=== PATIENT | female | born 1955 | race Caucasian/White ===

== ENCOUNTER → 2016-11-13 | Outpatient (CLI) | payer BC ==
--- NOTE | 2016-11-14 09:30 | MM ---
Reason for exam: screening (asymptomatic). Last mammogram was performed 1 year and 6 months ago. History: Patient is postmenopausal. Physical Findings: A clinical breast exam by your physician is recommended on an annual basis and results should be correlated with mammographic findings. MG 3D Screening Mammo W/Cad Bilateral CC and MLO view(s) were taken. Prior study comparison: May 31, 2015, bilateral MG 3d screening mammo w/cad. February 15, 2014, mammogram, performed at [facility]. The breast tissue is extremely dense which could obscure a lesion on mammography. No significant changes when compared with prior studies. ASSESSMENT: Benign, BI-RAD 2 RECOMMENDATION: Routine screening mammogram of both breasts in 1 year.
== END | disposition home or self-care (01) ==
LOC: RADMAMWWP 07:48
PROVIDERS: ATTEND Obstetrics & Gynecology
DX: Z12.31 Encounter for screening mammogram for malignant neoplasm of breast (principal)
CPT/HCPCS: 77063; G0202

== ENCOUNTER 2017-09-21 16:54 | Emergency (ER) | payer BC ==
[2017-09-21 17:04] VITALS: RESP 18
[2017-09-21 19:45] LABS: Appearance,Urine Clear (Clear); Bilirubin,Urine Negative (Negative); Blood,Urine Negative (Negative); Color,Urine Colorless; Glucose,Urine (UA) Negative (Negative); Ketones,Urine 1+ (Negative); Leukocyte Esterase,Urine Negative (Negative); Nitrite,Urine Negative (Negative); PH, Urine 6.5 (5.0-8.0); Protein,Urine Negative (Negative); Specific Gravity,Urine 1.002 (1.001-1.035); Urobilinogen,Urine <2.0 mg/dL (<2.0)
[2017-09-21 19:59] LABS: Basophils # (A) 0.1 k/uL (0-0.2); Basophils % (A) 1 %; Eosinophils # (A) 0.3 k/uL (0-0.7); Eosinophils % (A) 3 %; HCT 47.4 % (34.0-46.0); HGB 15.8 gm/dL (11.4-16.0); Lymphocytes # (A) 2.4 k/uL (1.0-4.8); Lymphocytes % (A) 25 %; MCH 29.7 pg (25.0-35.0); MCHC 33.3 g/dL (31.0-37.0); MCV 89.2 fL (80.0-100.0); Monocytes # (A) 0.3 k/uL (0-1.0); Monocytes % (A) 3 %; Neutrophils # (A) 6.7 k/uL (1.3-7.7); Neutrophils % (A) 67 %; Platelet Count 313 k/uL (150-450); RBC 5.31 m/uL (3.80-5.40); WBC 9.9 k/uL (3.8-10.6)
[2017-09-21] MEDS ORDERED: methylPREDNISolone SOD SUCCI 125 MG/2 ML VIAL IV STA (20:02)
[2017-09-21] MEDS ORDERED: IPRATROPIUM-ALBUTEROL 3 ML NEB INHALATION STA (20:02)
--- NOTE | 2017-09-21 20:09 | ED ---
General Adult HPI - General Chief complaint: Arrhythmia/Palpitations Stated complaint: Heart Racing, lightheaded Time Seen by Provider: 09/21/17 19:29 Source: patient Mode of arrival: wheelchair Limitations: no limitations - History of Present Illness Initial comments: 61-year-old female patient presents to the emergency department today for complaints of palpitations and shortness of breath. Patient states that for the last 3 days she has been having issues with shortness of breath. She states that on Thursday she had episode of palpitations that make her slightly lightheaded. She states that it stopped and went away and she felt fine over the weekend other than some intermittent shortness of breath. Patient states that today while at school her heart rate was running in the 120s and she was feeling the palpitations. She states that again she became lightheaded and left school to present to the emergency department today for evaluation. Patient does have a history of palpitations intermittently in the past. States that she does have a history of asthma and has had increasing coughing over the last 3 days as well. She denies any fever, chills, chest pain, nausea, vomiting , or sweats. States that she has not started any new medications, denies increased caffeine intake, denies any drug use. Patient denies any recent rash , abdominal pain, diarrhea, constipation, back pain, numbness, tingling, hematuria, dysuria, urinary urgency, urinary frequency, headache, visual changes , or any other complaints. - Related Data Home Medications Medication Instructions Recorded Confirmed Albuterol Sulfate [Proventil Hfa] 1 - 2 puff INHALATION RT-Q6H PRN 09/08/13 Montelukast [Singulair] 10 mg PO HS 09/08/13 09/21/17 amLODIPine BESYLATE [Norvasc] 10 mg PO DAILY 09/08/13 09/21/17 Fluticasone/Salmeterol [Advair Hfa 2 puff INHALATION RT-BID 03/14/14 09/21/17 230-21 Mcg Inhaler] Bio Identical Hormone Therapy 1 cap INTRADERMA DIRECTED 12/15/16 09/21/17 Umeclidinium Bowler [Incruse 1 puff INHALATION RT-DAILY 06/25/17 09/21/17 Ellipta] guaiFENesin [Mucinex] 1,200 mg PO Q12HR 06/25/17 09/21/17 Albuterol Nebulized [Ventolin 2.5 mg INHALATION RT-Q6H PRN 09/21/17 09/21/17 Nebulized] Calcium/Magnesium/Vitamin K 1 tab PO DAILY 09/21/17 09/21/17 Cyanocobalamin [Vitamin B-12] 500 mcg PO DAILY 09/21/17 09/21/17 L.acidoph,Paracasei, B.lactis 1 cap PO DAILY 09/21/17 09/21/17 [Probiotic] Loratadine [Claritin] 10 mg PO DAILY 09/21/17 09/21/17 Progesterone, Micronized 100 mg PO HS 09/21/17 09/21/17 [Progesterone] Previous Rx's Medication Instructions Recorded predniSONE 50 mg PO DAILY #5 tablet 09/21/17 Allergies Allergy/AdvReac Type Severity Reaction Status Date / Time Sulfa (Sulfonamide Allergy Rash/Hives Verified 09/21/17 19:53 Antibiotics) sulfamethoxazole Allergy Rash/Hives Verified 09/21/17 19:53 [From Bactrim] trimethoprim [From Bactrim] Allergy Rash/Hives Verified 09/21/17 19:53 Review of Systems ROS Statement: Those systems with pertinent positive or pertinent negative responses have been documented in the HPI. ROS Other: All systems not noted in ROS Statement are negative. Past Medical History Past Medical History: Asthma, Hypertension, Pneumonia Additional Past Medical History / Comment(s): Hx. palpitations History of Any Multi-Drug Resistant Organisms: None Reported Past Surgical History: Adenoidectomy, Hysterectomy, Tonsillectomy Additional Past Surgical History / Comment(s): Hx. Bronchoscopy Hx. rhinoplasty /deviated septumHx. rt knee arthroscopy total right knee replacement march left knee replacement - open Past Anesthesia/Blood Transfusion Reactions: No Reported Reaction Past Psychological History: Anxiety, Depression Smoking Status: Never smoker Past Alcohol Use History: Occasional Past Drug Use History: None Reported General Exam Limitations: no limitations General appearance: alert, in no apparent distress, other (This is a well- developed, well-nourished adult female patient in no acute distress. Vital signs upon presentation are temperature 97.5F, pulse 91, respirations 18, blood pressure 137/82, pulse ox 96% on room air.) Eye exam: Present: normal appearance, PERRL, EOMI. Absent: scleral icterus, conjunctival injection, periorbital swelling ENT exam: Present: normal exam, normal oropharynx, mucous membranes moist Respiratory exam: Present: wheezes (Course expiratory wheezing to all posterior lung maria.), other (Good air movement). Absent: normal lung sounds bilaterally, respiratory distress, rales, rhonchi, stridor Cardiovascular Exam: Present: regular rate, normal rhythm, normal heart sounds. Absent: systolic murmur, diastolic murmur, rubs, gallop, clicks GI/Abdominal exam: Present: soft, normal bowel sounds. Absent: distended, tenderness, guarding, rebound, rigid Neurological exam: Present: alert, oriented X3, CN II-XII intact Psychiatric exam: Present: normal affect, normal mood Skin exam: Present: warm, dry, intact, normal color. Absent: rash Course Vital Signs 09/21/17 09/21/17 09/21/17 17:01 19:33 20:37 Temperature 97.5 F L Pulse Rate 91 84 67 Respiratory 18 18 Rate Blood Pressure 137/82 137/80 O2 Sat by Pulse 96 97 Oximetry 09/21/17 20:49 Temperature Pulse Rate 72 Respiratory Rate Blood Pressure O2 Sat by Pulse Oximetry Medical Decision Making - Medical Decision Making 61-year-old female patient presented to the emergency department today for evaluation after having a couple episodes of palpitations while at home. Patient is also complaining of some intermittent shortness of breath. Physical examination did reveal diffuse expiratory wheezing throughout the posterior lung maria. Heart rate was regular in the 80s to 90s. Labs reviewed and are unremarkable. EKG showed normal sinus rhythm. Chest x-ray showed no acute cardiopulmonary process. Patient does have a history of asthma. States that she hasn't been doing her breathing treatments. We did discuss follow-up with her research coordinator for possible Holter monitor. Discussed anxiety as a possible cause. She is given a prescription for prednisone for acute asthma exacerbation. Return parameters discussed in detail. She verbalizes understanding and agrees with this plan. - Lab Data Result diagrams: 09/21/17 19:30 09/21/17 19:30 Lab Results 09/21/17 09/21/17 09/21/17 Range/Units 19:30 19:30 19:30 WBC 9.9 (3.8-10.6) k/uL RBC 5.31 (3.80-5.40) m/uL Hgb 15.8 (11.4-16.0) gm/dL Hct 47.4 H (34.0-46.0) % MCV 89.2 (80.0-100.0) fL MCH 29.7 (25.0-35.0) pg MCHC 33.3 (31.0-37.0) g/dL RDW 14.0 (11.5-15.5) % Plt Count 313 (150-450) k/uL Neutrophils % 67 % Lymphocytes % 25 % Monocytes % 3 % Eosinophils % 3 % Basophils % 1 % Neutrophils # 6.7 (1.3-7.7) k/uL Lymphocytes # 2.4 (1.0-4.8) k/uL Monocytes # 0.3 (0-1.0) k/uL Eosinophils # 0.3 (0-0.7) k/uL Basophils # 0.1 (0-0.2) k/uL Sodium 144 (137-145) mmol/L Potassium 3.7 (3.5-5.1) mmol/L Chloride 106 (98-107) mmol/L Carbon Dioxide 21 L (22-30) mmol/L Anion Gap 17 mmol/L BUN 12 (7-17) mg/dL Creatinine 0.60 (0.52-1.04) mg/dL Est GFR (CKD-EPI)AfAm >90 (>60 ml/min/1.73 sqM) Est GFR (CKD-EPI)NonAf >90 (>60 ml/min/1.73 sqM) Glucose 128 H (74-99) mg/dL Calcium 9.6 (8.4-10.2) mg/dL Magnesium 2.1 (1.6-2.3) mg/dL Total Bilirubin 0.4 (0.2-1.3) mg/dL AST 28 (14-36) U/L ALT 29 (9-52) U/L Alkaline Phosphatase 69 (38-126) U/L Total Creatine Kinase 98 (30-135) U/L CK-MB (CK-2) 1.2 (0.0-2.4) ng/mL CK-MB (CK-2) Rel Index 1.2 Troponin I <0.012 (0.000-0.034) ng/mL Total Protein 6.9 (6.3-8.2) g/dL Albumin 4.4 (3.5-5.0) g/dL TSH 1.810 (0.465-4.680) mIU/L Urine Color Urine Appearance (Clear) Urine pH (5.0-8.0) Ur Specific [place] (1.001-1.035) Urine Protein (Negative) Urine Glucose (UA) (Negative) Urine Ketones (Negative) Urine Blood (Negative) Urine Nitrite (Negative) Urine Bilirubin (Negative) Urine Urobilinogen (<2.0) mg/dL Ur Leukocyte Esterase (Negative) 09/21/17 Range/Units 19:40 WBC (3.8-10.6) k/uL RBC (3.80-5.40) m/uL Hgb (11.4-16.0) gm/dL Hct (34.0-46.0) % MCV (80.0-100.0) fL MCH (25.0-35.0) pg MCHC (31.0-37.0) g/dL RDW (11.5-15.5) % Plt Count (150-450) k/uL Neutrophils % % Lymphocytes % % Monocytes % % Eosinophils % % Basophils % % Neutrophils # (1.3-7.7) k/uL Lymphocytes # (1.0-4.8) k/uL Monocytes # (0-1.0) k/uL Eosinophils # (0-0.7) k/uL Basophils # (0-0.2) k/uL Sodium (137-145) mmol/L Potassium (3.5-5.1) mmol/L Chloride (98-107) mmol/L Carbon Dioxide (22-30) mmol/L Anion Gap mmol/L BUN (7-17) mg/dL Creatinine (0.52-1.04) mg/dL Est GFR (CKD-EPI)AfAm (>60 ml/min/1.73 sqM) Est GFR (CKD-EPI)NonAf (>60 ml/min/1.73 sqM) Glucose (74-99) mg/dL Calcium (8.4-10.2) mg/dL Magnesium (1.6-2.3) mg/dL Total Bilirubin (0.2-1.3) mg/dL AST (14-36) U/L ALT (9-52) U/L Alkaline Phosphatase (38-126) U/L Total Creatine Kinase (30-135) U/L CK-MB (CK-2) (0.0-2.4) ng/mL CK-MB (CK-2) Rel Index Troponin I (0.000-0.034) ng/mL Total Protein (6.3-8.2) g/dL Albumin (3.5-5.0) g/dL TSH (0.465-4.680) mIU/L Urine Color Colorless Urine Appearance Clear (Clear) Urine pH 6.5 (5.0-8.0) Ur Specific [place] 1.002 (1.001-1.035) Urine Protein Negative (Negative) Urine Glucose (UA) Negative (Negative) Urine Ketones 1+ H (Negative) Urine Blood Negative (Negative) Urine Nitrite Negative (Negative) Urine Bilirubin Negative (Negative) Urine Urobilinogen <2.0 (<2.0) mg/dL Ur Leukocyte Esterase Negative (Negative) - EKG Data -: EKG Interpreted by Nh EKG Comments: EKG obtained at 1719 shows normal sinus rhythm with a left bundle branch block. Ventricular rate is 86, WI interval 130, QRS duration 132, QT 398, QTC 476. Patient states she does have a history of left bundle branch block she sees Dr. Farias for this. - Radiology Data Radiology results: report reviewed, image reviewed Two-view x-ray of the chest shows heart mediastinum are normal. Lungs are clear. Diaphragm is normal. There are chest leads. Impression by Dr. Danielle shows no acute cardiopulmonary disease. No change compared to old exam. Mild lower pectus excavatum chest deformity noted. Disposition Clinical Impression: Palpitations, Asthma exacerbation Disposition: HOME SELF-CARE Condition: Good Instructions: Palpitations (ED), Asthma (ED) Additional Instructions: Complete prescription of steroids in full. Follow up with her primary care physician as well as your research coordinator for recheck in 1-2 days. Return here immediately for any new, worsening, or concerning symptoms. Prescriptions: predniSONE 50 mg PO DAILY #5 tablet Is patient prescribed a controlled substance at d/c from ED?: No Referrals: Raquel Maloney MD [Primary Care Provider] - 1-2 days Randy Farias MD [STAFF PHYSICIAN] - 1-2 days Time of Disposition: 21:27
[2017-09-21 20:12] LABS: ALT 29 U/L (9-52); AST 28 U/L (14-36); Albumin 4.4 g/dL (3.5-5.0); Alkaline Phosphatase 69 U/L (38-126); Anion Gap 17 mmol/L; Blood Urea Nitrogen 12 mg/dL (7-17); Calcium 9.6 mg/dL (8.4-10.2); Carbon Dioxide 21 mmol/L (22-30); Chloride 106 mmol/L (98-107); Glucose 128 mg/dL (74-99); Magnesium 2.1 mg/dL (1.6-2.3); Potassium 3.7 mmol/L (3.5-5.1); Sodium 144 mmol/L (137-145); Total Bilirubin 0.4 mg/dL (0.2-1.3); Total Protein 6.9 g/dL (6.3-8.2)
[2017-09-21 20:20] LABS: Creatine Kinase 98 U/L (30-135)
--- NOTE | 2017-09-21 20:21 | XR ---
EXAMINATION TYPE: XR chest 2V DATE OF EXAM: 09/21/2017 COMPARISON: 06/17/2017 HISTORY: Palpitation TECHNIQUE: Frontal and lateral views of the chest are obtained. FINDINGS: Heart and mediastinum are normal. Lungs are clear. Diaphragm is normal. There are chest le ads. IMPRESSION: No active cardiopulmonary disease. No change compared to old exam. Mild lower pectus exc avatum chest deformity noted
[2017-09-21 20:33] LABS: Creatine Kinase MB 1.2 ng/mL (0.0-2.4); Troponin I <0.012 ng/mL (0.000-0.034)
[2017-09-21 21:47] VITALS: BP 140/67; PULSE 70; TEMP 98.6
== END 2017-09-21 21:40 | disposition home or self-care (01) ==
LOC: EC 16:54
DX: J45.901 Unspecified asthma with (acute) exacerbation (principal); R00.2 Palpitations; I10 Essential (primary) hypertension; Z96.653 Presence of artificial knee joint, bilateral; Z79.899 Other long term (current) drug therapy; Z79.51 Long term (current) use of inhaled steroids; Z79.890 Hormone replacement therapy; Z88.2 Allergy status to sulfonamides
CPT/HCPCS: 36415; 94640; 93005; 80053; 84443; 82550; 82553; 83735; 84484; 85025; 81003; 71046; 99285; 96374; J2930

== ENCOUNTER → 2017-10-21 | Outpatient (CLI) | payer BC ==
[2017-10-21 17:27] LABS: Basophils % (A) 0 %; Eosinophils # (A) 0.2 k/uL (0-0.7); Eosinophils % (A) 2 %; HCT 40.8 % (34.0-46.0); HGB 13.6 gm/dL (11.4-16.0); Lymphocytes # (A) 1.9 k/uL (1.0-4.8); Lymphocytes % (A) 18 %; MCH 30.6 pg (25.0-35.0); MCHC 33.3 g/dL (31.0-37.0); MCV 92.1 fL (80.0-100.0); Mean Platelet Volume 6.6; Monocytes # (A) 0.4 k/uL (0-1.0); Monocytes % (A) 4 %; Neutrophils # (A) 7.6 k/uL (1.3-7.7); Neutrophils % (A) 75 %; Platelet Count 383 k/uL (150-450); RBC 4.43 m/uL (3.80-5.40); WBC 10.2 k/uL (3.8-10.6)
[2017-10-21 17:59] LABS: Total Eosinophil Count 183 #EOS/uL (150-300)
[2017-10-22 02:08] LABS: Clam IgE <0.10 kU/L; Codfish IgE <0.10 kU/L; Egg White IgE <0.10 kU/L; Peanut IgE <0.10 kU/L; Scallop IgE <0.10 kU/L; Shrimp IgE <0.10 kU/L; Soybean IgE <0.10 kU/L; Walnut IgE (Food) <0.10 kU/L
[2017-10-22 05:47] LABS: Alternaria alternata IgE 0.46 kU/L; Birch IgE <0.10 kU/L; Cat Epith & Dander IgE 0.89 kU/L; Cockroach IgE 0.23 kU/L; Dog Dander IgE 0.13 kU/L; Elm IgE <0.10 kU/L; Oak IgE <0.10 kU/L; Ragweed,Common IgE <0.10 kU/L; Red Top (Bentgrass) IgE <0.10 kU/L
== END | disposition home or self-care (01) ==
LOC: LABWHC1 16:48
PROVIDERS: ATTEND Internal Medicine
DX: J45.50 Severe persistent asthma, uncomplicated (principal); J47.9 Bronchiectasis, uncomplicated
CPT/HCPCS: 36415; 82785; 85008; 85025; 86003; 87070; 87077; 87186; 87205

== ENCOUNTER → 2017-10-28 | Outpatient (CLI) | payer BC ==
--- NOTE | 2017-10-28 12:18 | CT ---
EXAMINATION TYPE: CT chest w con DATE OF EXAM: 10/28/2017 COMPARISON: December 04, 2011 HISTORY: Bronchiectasis CT DLP: 71 mGycm Automated exposure control for dose reduction was used. CONTRAST: CT scan of the chest is performed with IV Contrast, patient injected with 100 mL of Isovue 300. FINDINGS: LUNGS: Groundglass nodule in left upper lobe image 13 measures 7.4 mm. No additional nodular densitie s seen. Linear atelectasis or parenchymal scar right lung base. Mild reticulonodular prominence right upper lobe. No evidence for bronchiectasis. No airspace consolidation. Stranding right middle lobe m edial segment. No pleural effusion or pneumothorax. MEDIASTINUM: There are no greater than 1 cm hilar or mediastinal lymph nodes. No pericardial effusi on is seen. Thoracic aorta is of normal caliber. The heart is mildly enlarged. UPPER ABDOMEN: Exophytic cyst upper pole left kidney measuring 5.2 cm. OTHER: No additional significant abnormality is seen. IMPRESSION: 1. Nonspecific groundglass nodule left upper lobe. Short-term follow-up advised with repeat study in 3 months. 2. No evidence for bronchiectasis.
== END | disposition home or self-care (01) ==
LOC: RADCTMAIN 08:00
PROVIDERS: ATTEND Internal Medicine
DX: R91.1 Solitary pulmonary nodule (principal)
CPT/HCPCS: 71260; Q9967

== ENCOUNTER → 2017-11-30 | Outpatient (CLI) | payer BC ==
--- NOTE | 2017-12-02 11:39 | MM ---
Reason for exam: screening (asymptomatic). Last mammogram was performed 1 year and 1 month ago. History: Patient is postmenopausal. Physical Findings: A clinical breast exam by your physician is recommended on an annual basis and results should be correlated with mammographic findings. MG 3D Screening Mammo W/Cad Bilateral CC and MLO view(s) were taken. Prior study comparison: November 13, 2016, bilateral MG 3d screening mammo w/cad. May 31, 2015, bilateral MG 3d screening mammo w/cad. The breast tissue is extremely dense which could obscure a lesion on mammography. No significant changes when compared with prior studies. ASSESSMENT: Benign, BI-RAD 2 RECOMMENDATION: Routine screening mammogram of both breasts in 1 year.
== END | disposition home or self-care (01) ==
LOC: RADMAMWWP 16:44
PROVIDERS: ATTEND Obstetrics & Gynecology
DX: Z12.31 Encounter for screening mammogram for malignant neoplasm of breast (principal)
CPT/HCPCS: 77063; 77067

== ENCOUNTER → 2018-01-13 | Outpatient (CLI) | payer BC | END | disposition home or self-care (01) | LOC: LABWHC1 07:20 | PROVIDERS: ATTEND Obstetrics & Gynecology | DX: Z51.81 Encounter for therapeutic drug level monitoring (principal); Z79.890 Hormone replacement therapy; Z78.0 Asymptomatic menopausal state; Z86.39 Personal history of other endocrine, nutritional and metabolic disease | CPT/HCPCS: 36415; 82607; 82670; 83001; 84403 ==

== ENCOUNTER → 2018-03-10 | Outpatient (CLI) | payer BC | END | disposition home or self-care (01) | LOC: LABWHC1 10:13 | PROVIDERS: ATTEND Internal Medicine | DX: E55.9 Vitamin D deficiency, unspecified (principal); J45.51 Severe persistent asthma with (acute) exacerbation; J18.1 Lobar pneumonia, unspecified organism; J47.9 Bronchiectasis, uncomplicated | CPT/HCPCS: 36415; 82306; 87070; 87077; 87186; 87205 ==

== ENCOUNTER → 2018-04-02 | Outpatient (CLI) | payer BC ==
[2018-04-02 18:10] LABS: Basophils % (A) 1 %; Eosinophils # (A) 0.1 k/uL (0-0.7); Eosinophils % (A) 1 %; HCT 42.1 % (34.0-46.0); HGB 13.8 gm/dL (11.4-16.0); Lymphocytes # (A) 1.9 k/uL (1.0-4.8); Lymphocytes % (A) 23 %; MCH 30.5 pg (25.0-35.0); MCHC 32.8 g/dL (31.0-37.0); MCV 92.9 fL (80.0-100.0); Mean Platelet Volume 6.5; Monocytes # (A) 0.4 k/uL (0-1.0); Monocytes % (A) 5 %; Neutrophils # (A) 5.5 k/uL (1.3-7.7); Neutrophils % (A) 69 %; Platelet Count 248 k/uL (150-450); RBC 4.53 m/uL (3.80-5.40); RDW 14.2 % (11.5-15.5)
[2018-04-02 18:45] LABS: Total Eosinophil Count 64 #EOS/uL (150-300)
[2018-04-03 03:32] LABS: Immunoglobulin E 53.1 IU/mL (0.00-114.00)
[2018-04-03 04:40] LABS: HIV 1 AB Non-Reactive (Non-Reactive); HIV AB P24 Non-Reactive (Non-Reactive); HIV P24 AG Non-Reactive (Non-Reactive)
[2018-04-03 11:37] LABS: T4/T8 Ratio (CD4:CD8) 6.4 (1.0-3.7)
[2018-04-03 12:14] LABS: Immunoglobulin M 65.7 mg/dL (40.0-280.0)
== END ==
LOC: LABWHC1 17:13
PROVIDERS: ATTEND Internal Medicine Infectious Disease
DX: J15.1 Pneumonia due to Pseudomonas (principal); J47.9 Bronchiectasis, uncomplicated
CPT/HCPCS: 36415; 82784; 82785; 85008; 85025; 86360; 87390

== ENCOUNTER 2018-06-16 07:01 | Day surgery (SDC) | payer BC ==
[2018-06-14 11:51] VITALS: BMI 26.4
[~2018-06-16 07:01] MED LIST: HEPARIN SODIUM,PORCINE 5,000 UNIT/ML 1 ML VIAL SQ ONE; ceFAZolin IN SWFI 2 GM/20 ML SYRINGE IVP ONE
--- NOTE | 2018-06-16 07:26 | P.GSHP ---
History of Present Illness H&P Date: 06/16/18 Chief Complaint: Chronic cholecystitis Patient on to our service from previous outpatient evaluation. Patient with intermittent right upper quadrant pain. Ultrasound findings of single large gallstone measuring 2.9 cm. Pain usually aggravated by eating. No change in the color of her skin urine or stool. Previous liver enzymes normal. Past Medical History Past Medical History: Asthma, Hypertension, Osteoarthritis (OA), Pneumonia, Skin Disorder, Sleep Apnea/CPAP/BIPAP Additional Past Medical History / Comment(s): palpitations, hx varicose veins, "mild" sleep apnea, gallstones, hx ezeema, LBBB, "pressure in eyes" History of Any Multi-Drug Resistant Organisms: None Reported Past Surgical History: Adenoidectomy, Hysterectomy, Joint Replacement, Orthopedic Surgery, Tonsillectomy Additional Past Surgical History / Comment(s): Bronchoscopy, rhinoplasty/ deviated septum, rt knee arthroscopy, rajinder knee replaements, vein stripping, wrist surgery, A&P repair Past Anesthesia/Blood Transfusion Reactions: Motion Sickness, Postoperative Nausea & Vomiting (PONV) Smoking Status: Never smoker - Past Family History Father Family Medical History: Deep Vein Thrombosis (DVT) Medications and Allergies Home Medications Medication Instructions Recorded Confirmed Type Albuterol Sulfate [Proventil Hfa] 1 - 2 puff INHALATION Q6HR PRN 09/08/13 History Montelukast [Singulair] 10 mg PO HS 09/08/13 06/14/18 History amLODIPine BESYLATE [Norvasc] 10 mg PO DAILY 09/08/13 06/14/18 History Fluticasone/Salmeterol [Advair Hfa 2 puff INHALATION BID 03/14/14 06/14/18 History 230-21 Mcg Inhaler] guaiFENesin [Mucinex] 1,200 mg PO Q12HR PRN 06/25/17 06/14/18 History Albuterol Nebulized [Ventolin 2.5 mg INHALATION Q6HR PRN 09/21/17 06/14/18 History Nebulized] L.acidoph,Paracasei, B.lactis 1 cap PO DAILY 09/21/17 06/14/18 History [Probiotic] Progesterone, Micronized 100 mg PO HS 09/21/17 06/14/18 History [Progesterone] Losartan [Cozaar] 25 mg PO DAILY 06/14/18 06/14/18 History Theophylline 12 Hour [Migue-Dur] 300 mg PO BID 06/14/18 06/14/18 History Allergies Allergy/AdvReac Type Severity Reaction Status Date / Time Sulfa (Sulfonamide Allergy Rash/Hives Verified 06/16/18 07:16 Antibiotics) sulfamethoxazole Allergy Rash/Hives Verified 06/16/18 07:16 [From Bactrim] trimethoprim [From Bactrim] Allergy Rash/Hives/ Verified 06/16/18 07:16 fever/aches Surgical - Exam Vital Signs Temp Pulse Resp BP Pulse Ox 97.6 F 68 16 151/85 97 06/16/18 07:17 06/16/18 07:17 06/16/18 07:17 06/16/18 07:17 06/16/18 07:17 Physical exam: General: Well-developed, well-nourished HEENT: Normocephalic, sclerae nonicteric Abdomen: Nontender, nondistended Extremities: No edema Neuro: Alert and oriented Assessment and Plan (1) Chronic cholecystitis Narrative/Plan: Will proceed with laparoscopic cholecystectomy at this time. Risks of bleeding, infection, bile leak, bile duct injury, retained common bile duct stone, trocar injury, conversion to an open procedure, hernia, anesthesia related complications were reviewed. The patient understands and wishes to proceed. Current Visit: Yes Status: Acute Code(s): K81.1 - CHRONIC CHOLECYSTITIS SNOMED Code(s): 30901705
[2018-06-16] MEDS ORDERED: LACTATED RINGERS 1,000 ML IV ONE (07:30)
[2018-06-16] MEDS ORDERED: LIDOCAINE 1% 20 ML VIAL (10MG/ML) FOR IV START INTRADERMA ONE (07:30)
[2018-06-16] MEDS ORDERED: methylPREDNISolone SOD SUCCI 125 MG/2 ML VIAL IV ONE (07:31)
[2018-06-16] MEDS ORDERED: DEXAMETHASONE SOD PHOSPHATE 10 MG/ML 1 ML VIAL IV ONE (07:31)
[2018-06-16] MEDS ORDERED: ONDANSETRON 4 MG/2 ML VIAL IVP ONE ×2 (07:31→09:00)
[2018-06-16] MEDS ORDERED: KETAMINE 10 MG/ML 20 ML VIAL ONE (07:41)
[2018-06-16] MEDS ORDERED: NEOSTIGMINE 1 MG/ML 10 ML VIAL ONE (07:41)
[2018-06-16] MEDS ORDERED: ROCURONIUM BROMIDE 10 MG/ML 10 ML VIAL IV ONE (07:41)
[2018-06-16] MEDS ORDERED: fentaNYL (PF) 50 MCG/ML 2 ML AMP ONE (07:41)
[2018-06-16] MEDS ORDERED: GLYCOPYRROLATE 0.2 MG/ML 2 ML VIAL ONE (07:41)
[2018-06-16] MEDS ORDERED: PROPOFOL 10 MG/ML 20 ML VIAL IV ONE (07:41)
[2018-06-16] MEDS ORDERED: MIDAZOLAM 2 MG/2 ML VIAL ONE (07:41)
[2018-06-16] MEDS ORDERED: BUPIVACAINE (PF) 0.25% 30 ML VIAL SQ ONE ×2 (08:09)
[2018-06-16] MEDS ORDERED: HYDROcodone/APAP 5-325MG 1 EACH TAB PO PRN (08:47)
[2018-06-16] MEDS ORDERED: NALOXONE 0.4 MG/ML 1 ML VIAL IV PRN (08:47)
--- NOTE | 2018-06-16 08:47 | P.OP ---
Date of Procedure: 06/16/18 Procedure(s) Performed: PREOPERATIVE DIAGNOSIS: Chronic cholecystitis POSTOPERATIVE DIAGNOSIS: Same PROCEDURE: Laparoscopic cholecystectomy SURGEON: Jill EBL: Minimal see anesthesia record ANESTHESIA: Gen. COMPLICATIONS: None OPERATIVE PROCEDURE: The patient was brought and placed on the operating room table in the supine position. The patient was placed under general anesthesia at that time. The abdomen was prepped and draped in the usual sterile fashion. A small vertical infraumbilical incision was made. The fascia was grasped with the Luis Manuel forceps. The fascia was retracted anteriorly. The Veress needle was advanced into the peritoneal cavity. The saline drop test was normal. Insufflation took place up to 15 mmHg. A 5 mm optical trocar was advanced and the peritoneal cavity. 2 additional 5 mm trochars were placed in the right upper quadrant under direct visualization. A 12 mm trocar was advanced into the epigastric incision site. The gallbladder was retracted superiorly and laterally. The peritoneum overlying the infundibulum was bluntly dissected. The patient's cystic duct was visualized. The junction between the cystic duct common and hepatic duct was identified. The cystic duct was then divided after placement of 3 12 mm clips on the patient's side and one on the specimen side. The cystic artery was identified and clipped as well. A small vessel was seen along the gallbladder fossa and clipped as well. The gallbladder was then removed from the liver bed using electrocautery. The gallbladder was then removed from the epigastric trocar site with an Endo Catch bag. The gallbladder fossa was irrigated with saline. There was no evidence of any bleeding or biliary drainage seen. The fascia at the 12 millimeter site was closed using a Ismael-Jez 0 Vicryl stitch. The trochars were then removed. The skin at all 4 sites was closed using a 4-0 Monocryl stitch. Skin glue was utilized on the incision sites. At the end of this procedure the sponge and needle counts were correct. DISPOSITION: Stable to the recovery room
[2018-06-16 08:57] VITALS: TEMP 96.8
[2018-06-16] MEDS: HYDROmorphone 1 MG/ML 1 ML SYRINGE IVP ONE ×4 (09:00→09:22)
[2018-06-16] MEDS ORDERED: HYDROcodone/APAP 5-325MG 1 EACH TAB PO ONE (10:11)
[2018-06-16] MEDS ORDERED: IPRATROPIUM-ALBUTEROL 3 ML NEB INHALATION STA (10:27)
[2018-06-16 10:47] VITALS: RESP 18
[2018-06-16 11:28] VITALS: BP 147/76; PULSE 72
== END 2018-06-16 11:29 | disposition home or self-care (01) ==
LOC: OR 07:01
PROVIDERS: ATTEND Surgery
DX: K80.10 Calculus of gallbladder with chronic cholecystitis without obstruction (principal); J45.909 Unspecified asthma, uncomplicated; I10 Essential (primary) hypertension; M19.90 Unspecified osteoarthritis, unspecified site; Z87.01 Personal history of pneumonia (recurrent); G47.30 Sleep apnea, unspecified; Z99.89 Dependence on other enabling machines and devices; I44.7 Left bundle-branch block, unspecified; L30.9 Dermatitis, unspecified; Z79.890 Hormone replacement therapy; Z79.51 Long term (current) use of inhaled steroids; Z79.52 Long term (current) use of systemic steroids; Z79.899 Other long term (current) drug therapy; Z88.2 Allergy status to sulfonamides
CPT/HCPCS: 94640; 88304; 47562; J2250; J1644; J1100; J2710; J2930; J2405; J3010; J1170; J2704; J0690

== ENCOUNTER 2018-10-28 10:02 | Day surgery (SDC) | payer BC ==
[2018-10-27 10:10] VITALS: BMI 26.0
[~2018-10-28 10:02] MED LIST changes: -HEPARIN SODIUM,PORCINE 5,000 UNIT/ML 1 ML VIAL SQ ONE; +LACTATED RINGERS 1,000 ML IV SCH; +LIDOCAINE 1% 20 ML VIAL (10MG/ML) FOR IV START INTRADERMA PRN; -ceFAZolin IN SWFI 2 GM/20 ML SYRINGE IVP ONE
[2018-10-28 10:22] VITALS: TEMP 98.2
[2018-10-28] MEDS ORDERED: PROPOFOL 10 MG/ML 20 ML VIAL IV ONE (11:32)
--- NOTE | 2018-10-28 12:14 | P.PCN ---
Date of Procedure: 10/28/18 Procedure(s) Performed: Procedure: Total colonoscopy. Preoperative diagnosis: Positive cologuard and history of polyps. Postoperative diagnosis: Exam within normal limits. Preparation: HalfLytely prep. Sedation: Was provided by anesthesia. Brief clinical history: The patient is a 63-year-old female who is scheduled for this evaluation for the above reasons. Her prior exam was in May 2015 and that revealed mild diverticulosis but the preparation was less than ideal. The patient complains of constipation but has no other bowel issues, overt bleeding or anemia. Procedure: With the patient on her left lateral decubitus position and after informed consent and adequate sedation, the perianal area was inspected and it did not show any fissures or fistulas. There were no masses felt on digital rectal examination. The Olympus CFH 190L video colonoscope was then inserted in the rectum in the usual fashion and advanced to the cecum. There was occasional diverticular orifices in the sigmoid and around the hepatic flexure but no evidence of acute diverticulitis or strictures. The mucosa appeared healthy. No significant polyps or tumors were seen or any mucosal abnormalities or other obvious pathology. I retroflexed the endoscope in the rectum before the endoscope was withdrawn. The patient tolerated the procedure well. Plan: The patient was reassured. I would recommend repeat exam in 5 years. The patient is interested in having blood serology for celiac disease because of her bowel issues and, apparently, her sister is diagnosed with celiac disease. She will be discussing that with you.
[2018-10-28 12:28] VITALS: BP 137/84; PULSE 66; RESP 16
== END 2018-10-28 12:37 | disposition home or self-care (01) ==
LOC: ORWHC2ENDO 10:02
DX: R19.5 Other fecal abnormalities (principal); K59.00 Constipation, unspecified; K57.30 Diverticulosis of large intestine without perforation or abscess without bleeding; M19.90 Unspecified osteoarthritis, unspecified site; I10 Essential (primary) hypertension; G47.33 Obstructive sleep apnea (adult) (pediatric); J45.909 Unspecified asthma, uncomplicated; I49.9 Cardiac arrhythmia, unspecified; R00.2 Palpitations; Z86.010 Personal history of colon polyps; Z79.51 Long term (current) use of inhaled steroids; Z79.899 Other long term (current) drug therapy; Z90.710 Acquired absence of both cervix and uterus; Z90.49 Acquired absence of other specified parts of digestive tract; Z90.89 Acquired absence of other organs; Z88.2 Allergy status to sulfonamides
CPT/HCPCS: 45378; J2704

== ENCOUNTER → 2019-02-16 | Outpatient (CLI) | payer BC ==
--- NOTE | 2019-02-17 07:06 | US ---
EXAMINATION TYPE: US kidneys/renal and bladder DATE OF EXAM: 02/16/2019 COMPARISON: NONE CLINICAL HISTORY: R10.9 FLANK PAIN. flank pain. EXAM MEASUREMENTS: Right Kidney: 9.9 x 3.0 x 4.0 cm Left Kidney: 10.3 x 4.2 x 4.2 cm Right Kidney: Cystic area lower pole 6.7 x 6.0 x 6.4cm. Left Kidney: Cystic area upper pole 6.2 x 5.3 x 6.3cm. Bladder: wnl Bilateral Jets seen: No There is no evidence for hydronephrosis at this point in time. No nephrolithiasis is seen. No suspi cious masses are identified. The urinary bladder is anechoic. IMPRESSION: Large bilateral renal cysts measuring up to 6.7 cm on the right and 6.2 cm on the left. These are sim ple and appear benign. No hydronephrosis or nephrolithiasis.
== END | disposition home or self-care (01) ==
LOC: RADUSWWP 16:15
PROVIDERS: ATTEND Internal Medicine
DX: N28.1 Cyst of kidney, acquired (principal); Z88.2 Allergy status to sulfonamides
CPT/HCPCS: 76770

== ENCOUNTER → 2019-04-09 | Outpatient (CLI) | payer BC ==
[2019-04-09 12:06] LABS: HCT 38.1 % (34.0-46.0); MCH 31.3 pg (25.0-35.0); MCHC 34.2 g/dL (31.0-37.0); MCV 91.4 fL (80.0-100.0); Platelet Count 316 k/uL (150-450); RBC 4.17 m/uL (3.80-5.40); RDW 13.4 % (11.5-15.5); WBC 6.4 k/uL (3.8-10.6)
[2019-04-09 17:09] LABS: Estradiol 85.1 pg/mL; Follicle Stimulating Hormone 29.6 mIU/mL
== END | disposition home or self-care (01) ==
LOC: LABWHC1 11:21
PROVIDERS: ATTEND Obstetrics & Gynecology
DX: E34.50 Androgen insensitivity syndrome, unspecified (principal); N95.1 Menopausal and female climacteric states; G47.00 Insomnia, unspecified; R53.83 Other fatigue
CPT/HCPCS: 36415; 82306; 82607; 82670; 83001; 84144; 84403; 84443; 84481; 85027

== ENCOUNTER → 2019-06-03 | Outpatient (CLI) | payer BC ==
--- NOTE | 2019-06-06 14:17 | MM ---
Reason for exam: screening (asymptomatic). Last mammogram was performed 1 year and 6 months ago. History: Patient is postmenopausal. Taking progesterone for 2 years. Physical Findings: A clinical breast exam by your physician is recommended on an annual basis and results should be correlated with mammographic findings. MG 3D Screening Mammo W/Cad Bilateral CC and MLO view(s) were taken. Prior study comparison: November 30, 2017, bilateral MG 3d screening mammo w/cad. November 13, 2016, bilateral MG 3d screening mammo w/cad. The breast tissue is heterogeneously dense. This may lower the sensitivity of mammography. There is no discrete abnormality. No significant changes when compared with prior studies. ASSESSMENT: Negative, BI-RAD 1 RECOMMENDATION: Routine screening mammogram of both breasts in 1 year.
== END | disposition home or self-care (01) ==
LOC: RADMAMWWP 16:50
PROVIDERS: ATTEND Obstetrics & Gynecology
DX: Z12.31 Encounter for screening mammogram for malignant neoplasm of breast (principal)
CPT/HCPCS: 77063; 77067

== ENCOUNTER → 2019-07-15 | Outpatient (CLI) | payer BC ==
[2019-07-15 19:51] LABS: Estradiol 106.3 pg/mL; Follicle Stimulating Hormone 18.3 mIU/mL
== END | disposition home or self-care (01) ==
LOC: LABWHC1 13:33
PROVIDERS: ATTEND Obstetrics & Gynecology
DX: R53.83 Other fatigue (principal); G47.00 Insomnia, unspecified; R45.4 Irritability and anger; N95.1 Menopausal and female climacteric states
CPT/HCPCS: 36415; 82670; 83001; 84402; 84403

== ENCOUNTER → 2020-01-12 | Outpatient (CLI) | payer BC ==
[2020-01-12 15:34] LABS: Estradiol 46.7 pg/mL
== END | disposition home or self-care (01) ==
LOC: LABWHC1 09:31
PROVIDERS: ATTEND Obstetrics & Gynecology
DX: E34.50 Androgen insensitivity syndrome, unspecified (principal); F41.8 Other specified anxiety disorders; N95.1 Menopausal and female climacteric states; R53.83 Other fatigue
CPT/HCPCS: 36415; 82670; 83001; 84144; 84402; 84403

== ENCOUNTER → 2020-08-16 | Outpatient (CLI) | payer BC ==
--- NOTE | 2020-08-22 09:34 | MM ---
Reason for exam: screening (asymptomatic). Last mammogram was performed 1 year and 2 months ago. History: Patient is postmenopausal. Taking progesterone for 2 years. Physical Findings: A clinical breast exam by your physician is recommended on an annual basis and results should be correlated with mammographic findings. MG 3D Screening Mammo W/Cad Bilateral CC and MLO view(s) were taken. Prior study comparison: June 03, 2019, bilateral MG 3d screening mammo w/cad. November 30, 2017, bilateral MG 3d screening mammo w/cad. The breast tissue is heterogeneously dense. This may lower the sensitivity of mammography. There are benign appearing vascular calcifications in the right breast. There is no discrete abnormality. ASSESSMENT: Negative, BI-RAD 1 RECOMMENDATION: Routine screening mammogram of both breasts in 1 year.
== END | disposition home or self-care (01) ==
LOC: RADMAMWWP 07:42
PROVIDERS: ATTEND Obstetrics & Gynecology
DX: Z12.31 Encounter for screening mammogram for malignant neoplasm of breast (principal); Z78.0 Asymptomatic menopausal state
CPT/HCPCS: 77063; 77067

== ENCOUNTER 2021-02-18 13:35 | Emergency (ER) | payer BC ==
[2021-02-18 14:07] VITALS: TEMP 98.9
[2021-02-18] MEDS ORDERED: IPRATROPIUM-ALBUTEROL 3 ML NEB INHALATION STA (15:23)
--- NOTE | 2021-02-18 15:28 | ED ---
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 She was treated by her primary care doctor with prednisone taper on January 17. She states that she seen Dr. Knight her polisher and sander and was placed on another prednisone taper for 21 days and Levaquin on January 26. She states that she continues to have a cough. She denies any fevers. 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 Her Covid test is negative today. She states that she has had 3 Covid vaccines. She has a history of bronchiectasis and asthma. She is a nonsmoker. (Aakash Tariq) - Related Data Home Medications Medication Instructions Recorded Confirmed Albuterol Sulfate [Proventil Hfa] 1 - 2 puff INHALATION Q6HR PRN 09/08/13 10/28/18 Montelukast [Singulair] 10 mg PO HS 09/08/13 10/28/18 amLODIPine BESYLATE [Norvasc] 10 mg PO DAILY 09/08/13 10/28/18 Fluticasone/Salmeterol [Advair Hfa 2 puff INHALATION BID 03/14/14 10/28/18 230-21 Mcg Inhaler] Albuterol Nebulized [Ventolin 2.5 mg INHALATION Q6HR PRN 09/21/17 10/28/18 Nebulized] L.acidoph,Paracasei, B.lactis 1 cap PO DAILY 09/21/17 10/28/18 [Probiotic] Progesterone, Micronized 100 mg PO HS 09/21/17 10/28/18 [Progesterone] Theophylline 12 Hour [Migue-Dur] 300 mg PO BID 06/14/18 10/28/18 Allergies Allergy/AdvReac Type Severity Reaction Status Date / Time Sulfa (Sulfonamide Allergy Rash/Hives Verified 02/18/21 14:07 Antibiotics) sulfamethoxazole Allergy Rash/Hives Verified 02/18/21 14:07 [From Bactrim] trimethoprim [From Bactrim] Allergy Rash/Hives/ Verified 02/18/21 14:07 fever/aches Review of Systems ROS Other: All systems not noted in ROS Statement are negative. <Aakash Tariq - Last Filed: 02/18/21 20:13> ROS Other: All systems not noted in ROS Statement are negative. <Danielle Park - Last Filed: 02/21/21 15:00> ROS Statement: Those systems with pertinent positive or pertinent negative responses have been documented in the HPI. Past Medical History Past Medical History: Asthma, Hypertension, Osteoarthritis (OA), Pneumonia, Skin Disorder, Sleep Apnea/CPAP/BIPAP Additional Past Medical History / Comment(s): palpitations, hx varicose veins, "mild" sleep apnea, hx ezcema, LBBB, "pressure in eyes" History of Any Multi-Drug Resistant Organisms: None Reported Past Surgical History: Adenoidectomy, Cholecystectomy, Hysterectomy, Joint Replacement, Orthopedic Surgery, Tonsillectomy Additional Past Surgical History / Comment(s): Bronchoscopy, rhinoplasty/deviated septum, rt knee arthroscopy, rajidner knee replacements, vein stripping, wrist surgery, A&P repair Past Anesthesia/Blood Transfusion Reactions: Motion Sickness, Postoperative Nausea & Vomiting (PONV) Past Psychological History: Anxiety Smoking Status: Never smoker Past Alcohol Use History: Occasional Past Drug Use History: None Reported - Past Family History Father Family Medical History: Deep Vein Thrombosis (DVT) <Aakash Tariq - Last Filed: 02/18/21 20:13> General Exam Limitations: no limitations General appearance: alert, in no apparent distress Head exam: Present: atraumatic, normocephalic, normal inspection ENT exam: Present: normal exam, normal oropharynx, mucous membranes moist Neck exam: Present: normal inspection, full ROM. Absent: tenderness, meningismus, lymphadenopathy Respiratory exam: Present: wheezes. Absent: respiratory distress, chest wall t enderness, accessory muscle use Cardiovascular Exam: Present: regular rate, normal rhythm, normal heart sounds. Absent: systolic murmur, diastolic murmur, rubs, gallop, clicks Extremities exam: Present: full ROM. Absent: pedal edema Back exam: Absent: tenderness, CVA tenderness (R), CVA tenderness (L) Neurological exam: Present: alert, oriented X3 Psychiatric exam: Present: normal affect, normal mood Skin exam: Present: warm, dry, intact, normal color. Absent: rash <Aakash Tariq - Last Filed: 02/18/21 20:13> Course Vital Signs 02/18/21 02/18/21 02/18/21 14:05 15:36 16:05 Temperature 98.9 F Pulse Rate 92 91 90 Respiratory 22 20 Rate Blood Pressure 169/84 137/67 O2 Sat by Pulse 98 95 Oximetry 02/18/21 16:12 Temperature Pulse Rate 92 Respiratory Rate Blood Pressure O2 Sat by Pulse Oximetry Medical Decision Making <Aakash Tariq - Last Filed: 02/18/21 20:13> <Danielle Park - Last Filed: 02/21/21 15:00> - Medical Decision Making Patient presents with cough for 6 weeks. She has history of asthma and bronchiectasis. She is a nonsmoker. X-ray shows no acute pulmonary disease. There is hyperinflation compatible with COPD. Patient has just finished prednisone taper that was prescribed on January 26 By her polisher and sander along with Levaquin for 10 days. She states that she was on prednisone by her primary care doctor on January 17 as well. She had negative Covid test here and has been vaccinated. Patient was given a DuoNeb treatment in the emergency room and reports improved symptoms. Her oxygen saturation is 98% on room air. She is afebrile. This is likely an asthma exacerbation and she'll be directed to follow up with her primary care doctor. Case discussed with Dr. Park. (Aakash Tariq) I was available for consultation in the emergency department. The history and physical exam were done by the midlevel provider. I was consulted for this patients care. I reviewed the case with the midlevel provider and based on their presentation of the patient, I agree with the assessment, medical decision making and plan of care as documented. Chart was dictated using [employer] dictation software. Attempts were made to correct any dictation errors however some typographical errors may persist. (Danielle Park) - Lab Data Lab Results 02/18/21 Range/Units 14:14 Coronavirus (PCR) Not Detected (Not Detectd) Disposition Is patient prescribed a controlled substance at d/c from ED?: No Time of Disposition: 16:32 <Aakahs Tariq - Last Filed: 02/18/21 20:13> <Danielle Park - Last Filed: 02/21/21 15:00> Clinical Impression: Cough Disposition: HOME SELF-CARE Condition: Good Instructions (If sedation given, give patient instructions): Asthma (ED) Additional Instructions: Continue taking your previously prescribed medications. Return to the emergency room with any new or worsening symptoms. Follow up with Dr. Knight this week. Referrals: Víctor Pacheco DO [Primary Care Provider] - 1-2 days Jam Knight MD [STAFF PHYSICIAN] - 1-2 days
[2021-02-18 15:40] VITALS: BP 137/67; RESP 20
--- NOTE | 2021-02-18 15:56 | XR ---
EXAMINATION TYPE: XR chest 2V DATE OF EXAM: 02/18/2021 COMPARISON: 09/21/2017 HISTORY: Shortness of breath TECHNIQUE: Frontal and lateral views of the chest are obtained. FINDINGS: Scattered senescent parenchymal changes noted. Hyperinflation compatible with COPD. No evidence for infiltrate. No evidence for atelectasis. Heart size is stable. Mediastinal structures are stable and grossly unremarkable. No evidence for hilar prominence. Degenerative changes dorsal spine. IMPRESSION: 1. No evidence for acute pulmonary disease.
[2021-02-18 16:13] VITALS: PULSE 92
== END 2021-02-18 17:00 | disposition home or self-care (01) ==
LOC: EC 13:35
DX: R05.9 Cough, unspecified (principal); R06.00 Dyspnea, unspecified; J45.909 Unspecified asthma, uncomplicated; I10 Essential (primary) hypertension; Z88.2 Allergy status to sulfonamides; Z88.1 Allergy status to other antibiotic agents; Z79.51 Long term (current) use of inhaled steroids; Z20.822 Contact with and (suspected) exposure to COVID-19; Z79.899 Other long term (current) drug therapy
CPT/HCPCS: 71046; 87635; 94640; 99285

== ENCOUNTER → 2021-06-11 | Outpatient (CLI) | payer BC | END | disposition home or self-care (01) | LOC: LABWHC1 09:03 | PROVIDERS: ATTEND Internal Medicine | DX: Z51.81 Encounter for therapeutic drug level monitoring (principal); Z79.899 Other long term (current) drug therapy | CPT/HCPCS: 36415; 80198 ==

== ENCOUNTER 2021-07-02 11:52 | Day surgery (SDC) | payer BC ==
[2021-07-01 11:57] VITALS: BMI 33.6
[~2021-07-02 11:52] MED LIST changes: +ALBUTEROL NEB (CONC) 2.5 MG/0.5 ML INHALATION ONE; -LIDOCAINE 1% 20 ML VIAL (10MG/ML) FOR IV START INTRADERMA PRN; +LIDOCAINE 2% (PF) 20 MG/ML 5 ML VIAL INHALATION ONE; +LIDOCAINE VISCOUS 300 MG/15 ML CUP MUCOUS MEM ONE
[2021-07-02 12:45] VITALS: TEMP 98.4
[2021-07-02] MEDS ORDERED: LIDOCAINE 1% (10MG/ML) FOR IV START INTRADERMA ONE (13:03)
[2021-07-02] MEDS ORDERED: methylPREDNISolone SOD SUCCI 125 MG/2 ML VIAL IVP ONE (13:03)
[2021-07-02 13:08] LABS: Glucose,Whole Blood 87 mg/dL (75-99)
[2021-07-02] MEDS ORDERED: ALBUTEROL NEBULIZED 2.5 MG/3 ML INHALATION ONE (13:08)
[2021-07-02] MEDS ORDERED: SUCCINYLCHOLINE CHLORIDE 100 MG/5 ML SYR IV ONE (13:27)
[2021-07-02] MEDS ORDERED: KETAMINE 10 MG/ML 20 ML VIAL ONE (13:27)
[2021-07-02] MEDS ORDERED: GLYCOPYRROLATE 0.2 MG/ML 2 ML VIAL ONE (13:27)
[2021-07-02] MEDS ORDERED: PROPOFOL 10 MG/ML 20 ML VIAL IV ONE (13:27)
[2021-07-02] MEDS ORDERED: MIDAZOLAM 2 MG/2 ML VIAL ONE (13:27)
[2021-07-02] MEDS ORDERED: LIDOCAINE 1% INJ 10MG/ML (20 ML MDV) ONE (13:27)
--- NOTE | 2021-07-02 14:03 | P.PCN ---
Date of Procedure: 07/02/21 Preoperative Diagnosis: 1 multilobar pneumonia 2 severe persistent bronchial asthma 3 shortness of breath, failed outpatient antibiotic and steroid treatment Postoperative Diagnosis: 1 tracheobronchomalacia 2 purulent secretions involving the various segments of the right lower lobe and a left upper lobe 3 diffuse inflammatory changes involving the bronchial and the tracheal mucosa 4 normal upper airway evaluation/examination Procedure(s) Performed: 1 flexible bronchoscopy 2 therapeutic airway suctioning 3 bronchioloalveolar lavage involving the right lower lobe in the left lower lobe Surgeon: Marvin Dolan Estimated Blood Loss (ml): 0 Pathology: other Condition: stable Disposition: same day Operative Findings: This is a 65-year-old female patient with severe persistent bronchial asthma also having difficulties with breathing for the past several months. The patient has increased dyspnea cough chest that is no wheezing and the patient has failed outpatient antibiotic and steroid treatment. Most recently, the patient underwent a CT of the heart/coronaries for a calcium score. The CAT scan also showed a patchy area of consolidation along the. Aspect of the right upper lobe measuring up to 3.5 cm in size with adjacent atelectasis noted in the right middle lobe and several areas of tree and bud nodularity within the right lower lobe and the right middle lobe. Additionally, there were areas of bronchial wall thickening and bronchial filling defects within the visualized portions of the lower lobes bilaterally. Based on that, a bronchoscopy was indicated This procedure was done under conscious sedation. Initially the patient was given a combination of Versed, fentanyl and. A quick upper airway inspection was done were the posterior oropharynx, larynx, epiglottis, vallecula, arytenoids and the vocal cords were done and all of the upper airway structures were within normal limits. Vocal cord function and mobility was normal. Arytenoids were slightly swollen. No polyps or lesions or nodules identified. Copious amount of rest or secretions were noted in the subglottic trachea. Following that, the patient intubated by anesthesia and placed on a mechanical ventilator. The patient was intubated by #8 orotracheal tube. After securing the airway, the flexible was reproduced for a complete airway examination. Distal trachea showed some purulent respiratory secretions and therapeutic it was suctioning was done. Following that, a complete airway inspection was done. Visualized airways included the bilateral mainstem bronchi, right upper lobe bronchus, bronchus intermedius, right middle lobe bronchus and right lower lobe bronchus and the various segments of the right and examination also included the left mainstem bronchus, left upper lobe bronchus, left lower lobe bronchus and the various 10 segments on the left. Of significance was the purulent and thick respiratory secretions and mucus obstructing the various segments of the right lower lobe including the posterior lateral anterior segment and this appears segments in addition to some secretions causing plugging of the right middle lobe bronchus intermedius segment of the right middle lobe. Less amount of secretions were noted in the right upper lobe bronchus. This segments in the right upper lobe were essentially patent and there was some scant secretions noted on a similar characteristics that was suctioned out. Bronchoscope was then moved to the left. Significant amount of purulent respiratory secretions were noted in the left lower lobe and the various segments. Scant secretions in the left upper lobe and lingular segments. After completing a therapeutic it was suctioning, bronchioloalveolar lavage of the right lower lobe and the left lower lobe was done separately and the samples were sent for microbial analysis. At the completion of the procedure, the ET tube was gradually retracted. Suctioning of the trachea was done. The patient was extubated and the flexible bronchoscope was introduced and another airway inspection was done. At that point, it was obvious that the patient had significant degree uptake of bronchomalacia with dynamic collapsibility of the trachea and bilateral mainstem bronchi with exhalation maneuvers and coughing. Nevertheless, the airway was free of any respiratory secretions. Bronchial mucosa was inspected and there was some diffuse mucosal inflammatory changes. Postoperative diagnosis 1 bilateral pneumonia, 2 tracheobronchomalacia, 3 diffuse tracheal bronchitis, 4 severe persistent bronchial asthma
--- NOTE | 2021-07-02 14:50 | XR ---
EXAMINATION TYPE: XR chest 1V DATE OF EXAM: 07/02/2021 COMPARISON: Chest x-ray 06/28/2021 HISTORY: Status post bronchoscopy TECHNIQUE: Single frontal view of the chest is obtained. FINDINGS: There is no evident pneumothorax. Patchy densities present in the right middle lobe. Apica l lucency is consistent with underlying emphysema. No evident pneumothorax or pleural effusion. IMPRESSION: No evident complication status post bronchoscopy.
[2021-07-02 14:59] VITALS: RESP 20
[2021-07-02 15:11] VITALS: BP 152/86; PULSE 80
[2021-07-03 04:50] LABS: Appearance,BF Cloudy
[2021-07-03 09:16] LABS: Appearance,BF Cloudy
== END 2021-07-02 16:09 ==
LOC: ORWHC2ENDO 11:52
PROVIDERS: ATTEND Internal Medicine Critical Care Medicine
DX: J39.8 Other specified diseases of upper respiratory tract (principal); J98.09 Other diseases of bronchus, not elsewhere classified; J98.11 Atelectasis; J18.9 Pneumonia, unspecified organism; J45.50 Severe persistent asthma, uncomplicated; E55.9 Vitamin D deficiency, unspecified; I10 Essential (primary) hypertension; J30.9 Allergic rhinitis, unspecified; J45.998 Other asthma; M19.90 Unspecified osteoarthritis, unspecified site; Z90.49 Acquired absence of other specified parts of digestive tract; Z98.890 Other specified postprocedural states; G47.33 Obstructive sleep apnea (adult) (pediatric); Z90.710 Acquired absence of both cervix and uterus; Z96.653 Presence of artificial knee joint, bilateral; Z83.3 Family history of diabetes mellitus; Z79.51 Long term (current) use of inhaled steroids; Z79.899 Other long term (current) drug therapy; Z88.2 Allergy status to sulfonamides
CPT/HCPCS: 94640; 88108; 88305; 89050; 87252; 87070; 87205; 87116; 87102; 87206; 71045; 31645; 31624; J2250; J2930; J2001 ×2; J0330; J2704; 87077; 87186; 87496; 87498; 87502; 87529; 87634; 87798

== ENCOUNTER 2021-07-05 14:29 | Inpatient (IN) | payer BC ==
[2021-07-05] MEDS ORDERED: LEVOFLOXACIN 750MG-D5W PMX 750 MG in DEXTROSE/WATER 1 150ML.BAG IVPB STA (15:04)
[2021-07-05] MEDS ORDERED: PIPERACILLIN-TAZOBACTAM 3.375 GM in SODIUM CHLORIDE 0.9% 100 ML IVPB STA (15:04)
[2021-07-05 15:29] LABS: Basophils % (A) 0 %; Eosinophils # (A) 0.1 k/uL (0-0.7); Eosinophils % (A) 1 %; HCT 46.4 % (34.0-46.0); HGB 15.1 gm/dL (11.4-16.0); Lymphocytes # (A) 1.5 k/uL (1.0-4.8); Lymphocytes % (A) 11 %; MCH 30.5 pg (25.0-35.0); MCHC 32.6 g/dL (31.0-37.0); MCV 93.8 fL (80.0-100.0); Mean Platelet Volume 7.2; Monocytes # (A) 0.5 k/uL (0-1.0); Monocytes % (A) 3 %; Neutrophils # (A) 12.4 k/uL (1.3-7.7); Neutrophils % (A) 85 %; Platelet Count 328 k/uL (150-450); RBC 4.95 m/uL (3.80-5.40); RDW 14.5 % (11.5-15.5); WBC 14.7 k/uL (3.8-10.6)
[2021-07-05 15:37] LABS: Albumin 4.3 g/dL (3.5-5.0); Calcium 9.2 mg/dL (8.4-10.2); Potassium 4.1 mmol/L (3.5-5.1); Total Bilirubin 0.5 mg/dL (0.2-1.3); Total Protein 7.4 g/dL (6.3-8.2)
[2021-07-05] MEDS: SODIUM CHLORIDE 0.9% 1,000 ML IV SCH (16:25)
[2021-07-05 16:26] LABS: Appearance,Urine Cloudy (Clear); Bilirubin,Urine Negative (Negative); Blood,Urine Negative (Negative); Calcium Oxalate Crystals,Urine Many /hpf; Color,Urine Yellow; Glucose,Urine (UA) Negative (Negative); Ketones,Urine Trace (Negative); Leukocyte Esterase,Urine Small (Negative); Mucus,Urine Rare /hpf; Nitrite,Urine Negative (Negative); Protein,Urine Trace (Negative); RBC,Urine 1 /hpf (0-5); Specific Gravity,Urine 1.026 (1.001-1.035); Squamous Epithelial Cell,Urine 1 /hpf (0-4); Urobilinogen,Urine <2.0 mg/dL (<2.0); WBC,Urine 3 /hpf (0-5)
[2021-07-05] MEDS ORDERED: PNEUMONIA PROTOCOL UTILIZED 1 EACH MISC PO PRN (16:28)
--- NOTE | 2021-07-05 16:32 | ED ---
SOB HPI - General Chief Complaint: Shortness of Breath Stated Complaint: SOB,Cough Source: patient Mode of arrival: ambulatory Limitations: no limitations - History of Present Illness Initial Comments: Evelyn is a 65yo F with PMH of asthma and chronic cough, presents to the emergen cy department today via private vehicle and the advice of her boarding house manager. Patient had bronchoscopy due to chronic cough, bronchoscopy yielded evidence of Pseudomonas pneumonia and she was advised to come to the hospital for IV antibiotics. Patient denies any fevers but reports she's had some chills and clamminess lately. She reports her aggressively worsening cough. Denies chest pain. - Related Data Home Medications Medication Instructions Recorded Confirmed Albuterol Sulfate [Proventil Hfa] 2 puff INHALATION RT-Q6H PRN 09/08/13 07/05/21 Montelukast [Singulair] 10 mg PO HS 09/08/13 07/05/21 Progesterone, Micronized 100 mg PO HS 09/21/17 07/05/21 [Progesterone] Theophylline 12 Hour [Migue-Dur] 300 mg PO BID 06/14/18 07/05/21 ALPRAZolam [Xanax] 0.5 mg PO DAILY PRN 07/01/21 07/05/21 Ipratropium-Albuterol Nebulize 3 ml INHALATION RT-Q6H PRN 07/01/21 07/05/21 [Duoneb 0.5 mg-3 mg/3 ml Soln] Losartan [Cozaar] 25 mg PO HS 07/01/21 07/05/21 Ciprofloxacin HCl [Cipro] 750 mg PO Q12H 07/05/21 07/05/21 Fluticasone/Umeclidin/Vilanter 1 puff INHALATION RT-DAILY 07/05/21 07/05/21 [Trelegy Ellipta 100-62.5-25] amLODIPine [Norvasc] 10 mg PO DAILY 07/05/21 07/05/21 predniSONE See Taper PO DAILY 07/05/21 07/05/21 Allergies Allergy/AdvReac Type Severity Reaction Status Date / Time Sulfa (Sulfonamide Allergy Rash/Hives Verified 07/05/21 15:45 Antibiotics) sulfamethoxazole Allergy Rash/Hives Verified 07/05/21 15:45 [From Bactrim] trimethoprim [From Bactrim] Allergy Rash/Hives/ Verified 07/05/21 15:45 fever/aches Review of Systems ROS Statement: Those systems with pertinent positive or pertinent negative responses have been documented in the HPI. ROS Other: All systems not noted in ROS Statement are negative. Past Medical History Past Medical History: Asthma, Hypertension, Osteoarthritis (OA), Pneumonia, Skin Disorder, Sleep Apnea/CPAP/BIPAP Additional Past Medical History / Comment(s): Palpitations, hx varicose veins, "mild" sleep apnea, hx ezcema, LBBB, "pressure in eyes from steroids". SOB recently., tracheal bronchial malacia. History of Any Multi-Drug Resistant Organisms: None Reported Past Surgical History: Adenoidectomy, Cholecystectomy, Hysterectomy, Joint Re placement, Orthopedic Surgery, Tonsillectomy Additional Past Surgical History / Comment(s): Bronchoscopy, rhinoplasty/deviated septum, right knee arthroscopy, bilateral knee r eplacements, vein stripping, left wrist surgery, A&P repair. Past Anesthesia/Blood Transfusion Reactions: Motion Sickness, Postoperative Nausea & Vomiting (PONV) Past Psychological History: Anxiety, Depression Smoking Status: Never smoker, Second hand smoke exposure Past Alcohol Use History: Occasional - Past Family History Father Family Medical History: Deep Vein Thrombosis (DVT) General Exam - General Exam Comments Initial Comments: Physical Exam GENERAL: Patient is well-developed and well-nourished. Patient is nontoxic and well- hydrated and is in no distress. HENT: Normocephalic, Atraumatic. EYES: PERRL, EOMI PULMONARY: Coarse breath sounds in all lung maria CARDIOVASCULAR: There is a regular rate and rhythm without any murmurs gallops or rubs. ABDOMEN: Soft and nontender with normal bowel sounds. SKIN: Skin is clear with no lesions or rashes and otherwise unremarkable. : Deferred NEUROLOGIC: Patient is alert and oriented x3. Moving all extremities spontaneously MUSCULOSKELETAL: Normal extremities with adequate strength and full range of motion. No lower extremity swelling or edema. No calf tenderness. PSYCHIATRIC: Normal psychiatric evaluation. Limitations: no limitations Course Vital Signs 07/05/21 14:31 Temperature 98 F Pulse Rate 83 Respiratory 22 Rate Blood Pressure 118/75 O2 Sat by Pulse 94 L Oximetry Medical Decision Making - Medical Decision Making Patient care was discussed with boarding house manager prior to the patient's arrival, recommended labs, IV antibiotics and admission. Patient arrives she is in no re spiratory distress, labs were obtained chest x-ray was obtained, patient received Zosyn and clindamycin in the emergency department. Patient will be admitted for Pseudomonas pneumonia with consults to pulmonology and infectious disease. - Lab Data Result diagrams: 07/05/21 15:16 07/05/21 15:16 Lab Results 07/05/21 07/05/21 07/05/21 Range/Units 15:16 15:16 15:16 WBC 14.7 H (3.8-10.6) k/uL RBC 4.95 (3.80-5.40) m/uL Hgb 15.1 (11.4-16.0) gm/dL Hct 46.4 H (34.0-46.0) % MCV 93.8 (80.0-100.0) fL MCH 30.5 (25.0-35.0) pg MCHC 32.6 (31.0-37.0) g/dL RDW 14.5 (11.5-15.5) % Plt Count 328 (150-450) k/uL MPV 7.2 Neutrophils % 85 % Lymphocytes % 11 % Monocytes % 3 % Eosinophils % 1 % Basophils % 0 % Neutrophils # 12.4 H (1.3-7.7) k/uL Lymphocytes # 1.5 (1.0-4.8) k/uL Monocytes # 0.5 (0-1.0) k/uL Eosinophils # 0.1 (0-0.7) k/uL Basophils # 0.0 (0-0.2) k/uL Sodium 140 (137-145) mmol/L Potassium 4.1 (3.5-5.1) mmol/L Chloride 105 (98-107) mmol/L Carbon Dioxide 24 (22-30) mmol/L Anion Gap 11 mmol/L BUN 20 H (7-17) mg/dL Creatinine 0.90 (0.52-1.04) mg/dL Est GFR (CKD-EPI)AfAm 79 (>60 ml/min/1.73 sqM) Est GFR (CKD-EPI)NonAf 69 (>60 ml/min/1.73 sqM) Glucose 107 H (74-99) mg/dL Plasma Lactic Acid Thomas (0.7-2.0) mmol/L Calcium 9.2 (8.4-10.2) mg/dL Total Bilirubin 0.5 (0.2-1.3) mg/dL AST 22 (14-36) U/L ALT 16 (4-34) U/L Alkaline Phosphatase 74 (38-126) U/L Total Protein 7.4 (6.3-8.2) g/dL Albumin 4.3 (3.5-5.0) g/dL Urine Color Yellow Urine Appearance Cloudy H (Clear) Urine pH 6.0 (5.0-8.0) Ur Specific [place] 1.026 (1.001-1.035) Urine Protein Trace H (Negative) Urine Glucose (UA) Negative (Negative) Urine Ketones Trace H (Negative) Urine Blood Negative (Negative) Urine Nitrite Negative (Negative) Urine Bilirubin Negative (Negative) Urine Urobilinogen <2.0 (<2.0) mg/dL Ur Leukocyte Esterase Small H (Negative) Urine RBC 1 (0-5) /hpf Urine WBC 3 (0-5) /hpf Ur Squamous Epith Cells 1 (0-4) /hpf Calcium Oxalate Crystal Many H (None) /hpf Urine Mucus Rare H (None) /hpf 07/05/21 Range/Units 15:16 WBC (3.8-10.6) k/uL RBC (3.80-5.40) m/uL Hgb (11.4-16.0) gm/dL Hct (34.0-46.0) % MCV (80.0-100.0) fL MCH (25.0-35.0) pg MCHC (31.0-37.0) g/dL RDW (11.5-15.5) % Plt Count (150-450) k/uL MPV Neutrophils % % Lymphocytes % % Monocytes % % Eosinophils % % Basophils % % Neutrophils # (1.3-7.7) k/uL Lymphocytes # (1.0-4.8) k/uL Monocytes # (0-1.0) k/uL Eosinophils # (0-0.7) k/uL Basophils # (0-0.2) k/uL Sodium (137-145) mmol/L Potassium (3.5-5.1) mmol/L Chloride (98-107) mmol/L Carbon Dioxide (22-30) mmol/L Anion Gap mmol/L BUN (7-17) mg/dL Creatinine (0.52-1.04) mg/dL Est GFR (CKD-EPI)AfAm (>60 ml/min/1.73 sqM) Est GFR (CKD-EPI)NonAf (>60 ml/min/1.73 sqM) Glucose (74-99) mg/dL Plasma Lactic Acid Thomas 0.9 (0.7-2.0) mmol/L Calcium (8.4-10.2) mg/dL Total Bilirubin (0.2-1.3) mg/dL AST (14-36) U/L ALT (4-34) U/L Alkaline Phosphatase (38-126) U/L Total Protein (6.3-8.2) g/dL Albumin (3.5-5.0) g/dL Urine Color Urine Appearance (Clear) Urine pH (5.0-8.0) Ur Specific [place] (1.001-1.035) Urine Protein (Negative) Urine Glucose (UA) (Negative) Urine Ketones (Negative) Urine Blood (Negative) Urine Nitrite (Negative) Urine Bilirubin (Negative) Urine Urobilinogen (<2.0) mg/dL Ur Leukocyte Esterase (Negative) Urine RBC (0-5) /hpf Urine WBC (0-5) /hpf Ur Squamous Epith Cells (0-4) /hpf Calcium Oxalate Crystal (None) /hpf Urine Mucus (None) /hpf Disposition Clinical Impression: Pseudomonas pneumonia Disposition: ADMITTED IP TO THIS HOSP Condition: Stable Is patient prescribed a controlled substance at d/c from ED?: No Referrals: Víctor Pacheco DO [Primary Care Provider] - 1-2 days
[2021-07-05] MEDS ORDERED: ALBUTEROL NEBULIZED 2.5 MG/3 ML INHALATION PRN (18:21)
[2021-07-05] MEDS: MONTELUKAST 10 MG TAB PO SCH (20:55)
[2021-07-05] MEDS: LOSARTAN 25 MG TAB PO SCH (20:55)
[2021-07-05] MEDS: IPRATROPIUM-ALBUTEROL 3 ML NEB INHALATION PRN (21:13)
[2021-07-06] MEDS: SODIUM CHLORIDE 0.9% 1,000 ML IV SCH ×3 (02:03→16:26)
[2021-07-06] MEDS: IPRATROPIUM-ALBUTEROL 3 ML NEB INHALATION PRN ×2 (02:05→15:38)
[2021-07-06] MEDS: ACETAMINOPHEN TAB 325 MG TAB PO PRN (02:15)
[2021-07-06] MEDS: THEOPHYLLINE 24 HOUR 300 MG CAP.ER.24H PO SCH (07:25)
[2021-07-06] MEDS: amLODIPine 10 MG TAB PO SCH (07:25)
[2021-07-06] MEDS ORDERED: SYMBICORT 80-4.5 MCG INHALER INHALATION SCH (08:00)
[2021-07-06] MEDS: IPRATROPIUM 0.5 MG/2.5 ML NEBU INHALATION SCH ×4 (08:02→19:47)
[2021-07-06 08:41] LABS: Basophils # (A) 0.04 X 10*3/uL (0.00-0.10); Basophils % (A) 0.4 %; Eosinophils # (A) 0.11 X 10*3/uL (0.04-0.35); Eosinophils % (A) 1.1 %; HCT 38.3 % (37.2-46.3); HGB 12.2 g/dL (12.0-15.0); Immature Grans, Automated 0.6 %; Lymphocytes # (A) 2.44 X 10*3/uL (0.90-5.00); Lymphocytes % (A) 23.3 %; MCH 29.8 pg (27.0-32.0); MCHC 31.9 g/dL (32.0-37.0); MCV 93.4 fL (80.0-97.0); Monocytes # (A) 0.72 X 10*3/uL (0.20-1.00); Monocytes % (A) 6.9 %; NRBC Per 100 WBC 0 /100 WBCS (0.0-0.0); Neutrophils # (A) 7.08 X 10*3/uL (1.80-7.70); Neutrophils % (A) 67.7 %; Platelet Count 230 X 10*3/uL (140-440); RDW 14.1 % (11.5-14.5); WBC 10.45 X 10*3/uL (4.50-10.00)
[2021-07-06] MEDS ORDERED: predniSONE 10 MG TAB PO SCH (09:00)
[2021-07-06] MEDS ORDERED: CEFEPIME 2 GM in SODIUM CHLORIDE 0.9% 100 ML IVPB SCH (09:00)
--- NOTE | 2021-07-06 09:10 | XR ---
EXAMINATION TYPE: XR chest 1V portable DATE OF EXAM: 07/06/2021 HISTORY: Shortness of breath. COMPARISON: 07/02/2021 TECHNIQUE: Single view of the chest is submitted. FINDINGS: Demonstrated are scattered senescent parenchymal change. No significant interval change in right middle lobe infiltrate. The heart is stable. Hilar and mediastinal structures are within normal limits. Degenerative changes are seen of the dorsal spine. IMPRESSION: 1. No significant interval change in right middle lobe infiltrate.
[2021-07-06] MEDS: guaiFENesin 600 MG TABLET.ER PO SCH ×2 (12:07→20:29)
[2021-07-06] MEDS: methylPREDNISolone SOD SUCCI 40 MG/ML 1 ML VIAL IV SCH ×3 (12:07→23:24)
--- NOTE | 2021-07-06 12:44 | CT ---
EXAMINATION TYPE: CT chest wo con DATE OF EXAM: 07/06/2021 COMPARISON: None HISTORY: Pneumonia, ? bronchiectasis CT DLP: 358.[address] of the chest was performed with lung and mediastinal window settings submitted. The la ck of contrast limits evaluation of the vascular, mediastinal and parenchymal structures including th e upper abdomen. LUNGS: There is airspace consolidation right middle lobe with additional scattered nodular and ground glass areas of infiltrate within the right upper lobe, the left upper lobe and lower lobes. The findi ngs are consistent with multifocal pneumonia. No pleural effusion or volume loss at this time. Mild l ower lobe bronchiectasis suggested. MEDIASTINUM/YURI: Thoracic aorta is of normal caliber with limited evaluation given lack of contrast . The heart is not enlarged. No evidence for mediastinal mass. There is a reactive right paratrache al adenopathy measuring up to 1.6 cm. Small sliding-type hiatal hernia. UPPER ABDOMEN: Large cystic lesion upper pole left kidney. 2 mm calculus right kidney. The gallbladde r is surgically absent. OTHER: No significant other abnormality. IMPRESSION: 1. Multifocal pneumonia as noted.
--- NOTE | 2021-07-06 14:10 | P.CNPUL ---
History of Present Illness Consult date: 07/06/21 Reason for consult: dyspnea, pneumonia History of present illness: This is a 65-year-old female patient was admitted yesterday for ongoing pneum onia. The patient is seen in our office and the patient has been having difficulties with shortness of breath cough and congestion for the past 2-3 months. The patient has a congested cough, at times she was bringing up yellow sputum. She has also developed some chronic consolidation in lower lobes most on the right. The patient has already received several courses of antibiotics and steroids on outpatient basis without much of an improvement. She continued to be symptomatic. Note that she has completed a course of Zithromax, Augmentin and Levaquin on outpatient basis given to her by her transplanter orchid and by her primary care physician. I performed a bronchoscopy on this patient earlier this week. During the bronchoscopy, I found significant tracheal bronchomalacia and there was significant amount of purulent respiratory secretions bilaterally. Bronchioloalveolar lavage was done and the cultures came back positive for pseudomonas aeruginosa. The patient accordingly was hospitalized as the patient was quite symptomatic, congested, bronchospastic and wheezy and she was not imp roving. She was hospitalized for IV antibiotic treatment. The chest x-ray wasn't. This morning and the patient has ongoing consolidation of the lower lobes. At the same time, the patient has been diagnosed having severe persistent bronchial asthma with use of a King component and the patient is receiving a combination of treatment including Trelegy Ellipta, theophylline, and Singulair and the patient has been maintained on Nucala 100 mg subcutaneous infusions every 4 weeks. Should the patient has seasonal ALLERGIC rhinitis, osteoarthritis, hypertension, vitamin D deficiency as comorbid conditions. She is a lifetime nonsmoker. Review of Systems Constitutional: Reports fatigue, Reports weakness Eyes: denies as per HPI, denies blurred vision, denies bulging eye, denies decreased vision, denies diplopia, denies discharge, denies dry eye, denies irritation, denies itching, denies pain, denies photophobia, denies loss of peripheral vision, denies loss of vision, denies tunnel vision/blind spots Ears: deny: decreased hearing, ear discharge, earache, tinnitus Ears, nose, mouth and throat: Reports as per HPI Breasts: absent: as per HPI, change in shape, gynecomastia, masses, nipple discharge, pain, skin changes, swelling Cardiovascular: Reports decreased exercise tolerance, Reports dyspnea on exertion Respiratory: Reports congestion, Reports cough, Reports dyspnea, Reports respiratory infections, Reports wheezing Gastrointestinal: Reports as per HPI Genitourinary: Reports as per HPI Menstruation: Reports as per HPI Musculoskeletal: Reports as per HPI Musculoskeletal: absent: ankle pain, ankle stiffness, ankle swelling, as per HPI, elbow pain, elbow stiffness, elbow swelling, foot pain, foot stiffness, foot swelling, hand pain, hand stiffness, hand swelling, hip pain, hip stiffness, hip swelling, knee pain, knee stiffness, knee swelling, shoulder pain, shoulder stiffness, shoulder swelling, wrist pain, wrist stiffness, wrist swelling Integumentary: Reports as per HPI Neurological: Reports as per HPI Psychiatric: Reports as per HPI Endocrine: Reports as per HPI Hematologic/Lymphatic: Reports as per HPI Allergic/Immunologic: Reports as per HPI Past Medical History Past Medical History: Asthma, Hypertension, Osteoarthritis (OA), Pneumonia, Skin Disorder, Sleep Apnea/CPAP/BIPAP Additional Past Medical History / Comment(s): Palpitations, hx varicose veins, "mild" sleep apnea, hx ezcema, LBBB, "pressure in eyes from steroids". SOB rece ntly., tracheal bronchial malacia. History of Any Multi-Drug Resistant Organisms: None Reported Past Surgical History: Adenoidectomy, Cholecystectomy, Hysterectomy, Joint Replacement, Orthopedic Surgery, Tonsillectomy Additional Past Surgical History / Comment(s): Bronchoscopy, rhinoplasty/deviated septum, right knee arthroscopy, bilateral knee replacements, vein stripping, left wrist surgery, A&P repair. Past Anesthesia/Blood Transfusion Reactions: Motion Sickness, Postoperative Nausea & Vomiting (PONV) Past Psychological History: Anxiety, Depression Additional Psychological History / Comment(s): Hx of, no treatment now. Smoking Status: Never smoker, Second hand smoke exposure Past Alcohol Use History: Occasional Past Drug Use History: None Reported Additional Drug Use History / Comment(s): Tried CBD oil but not using currently. - Past Family History Father Family Medical History: Deep Vein Thrombosis (DVT) Medications and Allergies Home Medications Medication Instructions Recorded Confirmed Type Albuterol Sulfate [Proventil Hfa] 2 puff INHALATION RT-Q6H PRN 09/08/13 07/05/21 History Montelukast [Singulair] 10 mg PO HS 09/08/13 07/05/21 History Progesterone, Micronized 100 mg PO HS 09/21/17 07/05/21 History [Progesterone] Theophylline 12 Hour [Migue-Dur] 300 mg PO BID 06/14/18 07/05/21 History ALPRAZolam [Xanax] 0.5 mg PO DAILY PRN 07/01/21 07/05/21 History Ipratropium-Albuterol Nebulize 3 ml INHALATION RT-Q6H PRN 07/01/21 07/05/21 History [Duoneb 0.5 mg-3 mg/3 ml Soln] Losartan [Cozaar] 25 mg PO HS 07/01/21 07/05/21 History Ciprofloxacin HCl [Cipro] 750 mg PO Q12H 07/05/21 07/05/21 History Fluticasone/Umeclidin/Vilanter 1 puff INHALATION RT-DAILY 07/05/21 07/05/21 History [Trelegy Ellipta 100-62.5-25] amLODIPine [Norvasc] 10 mg PO DAILY 07/05/21 07/05/21 History predniSONE See Taper PO DAILY 07/05/21 07/05/21 History Allergies Allergy/AdvReac Type Severity Reaction Status Date / Time Sulfa (Sulfonamide Allergy Rash/Hives Verified 07/05/21 15:45 Antibiotics) sulfamethoxazole Allergy Rash/Hives Verified 07/05/21 15:45 [From Bactrim] trimethoprim [From Bactrim] Allergy Rash/Hives/ Verified 07/05/21 15:45 fever/aches Physical Exam Vitals: Vital Signs Temp Pulse Pulse Resp BP BP BP 07/06/21 11:47 72 07/06/21 11:34 72 07/06/21 08:14 76 07/06/21 08:02 76 07/06/21 07:50 99.3 F 74 18 152/84 07/06/21 02:25 98.3 F 74 18 162/80 07/06/21 02:15 66 07/06/21 02:05 72 07/05/21 21:21 75 07/05/21 21:14 69 07/05/21 20:48 97.9 F 71 18 145/81 07/05/21 18:01 98.4 F 70 17 164/84 07/05/21 18:00 98.4 F 07/05/21 17:45 98.7 F 64 18 143/82 07/05/21 16:27 98.2 F 64 20 145/92 07/05/21 14:31 98 F 83 22 118/75 Pulse Ox 07/06/21 11:47 07/06/21 11:34 07/06/21 08:14 07/06/21 08:02 07/06/21 07:50 93 L 07/06/21 02:25 95 07/06/21 02:15 07/06/21 02:05 07/05/21 21:21 07/05/21 21:14 07/05/21 20:48 95 07/05/21 18:01 96 07/05/21 18:00 07/05/21 17:45 94 L 07/05/21 16:27 94 L 07/05/21 14:31 94 L Intake and Output 07/05/21 07/06/21 07/06/21 22:59 06:59 14:59 Other: Voiding Method Toilet # Voids 1 1 Weight 85.275 kg Gen. appearance she is calm and comfortable no acute distress Head exam was generally normal. There was no scleral icterus or corneal arcus. Mucous membranes were moist. Neck was supple and without jugular venous distension, thyromegaly, or carotid bruits. Carotids were easily palpable bilaterally. There was no adenopathy. Lungs sounds are diminished and the patient is diffuse expiratory wheezes throughout the lung his bilaterally and scattered rhonchi heard throughout the lung maria Cardiac exam revealed the PMI to be normally situated and sized. The rhythm was regular and no extrasystoles were noted during several minutes of auscultation. The first and second heart sounds were normal and physiologic splitting of the second heart sound was noted. There were no murmurs, rubs, clicks, or gallops. Abdominal exam revealed normal bowel sounds. The abdomen was soft, non-tender, and without masses, organomegaly, or appreciable enlargement of the abdominal aorta. Examination of the extremities revealed easily palpable radial, femoral and pedal pulses. There was no cyanosis, clubbing or edema. Examination of the skin revealed no evidence of significant rashes, suspicious appearing nevi or other concerning lesions. Neurologically, the patient is awake and alert and the patient does not have any focal neurological deficit. Cranial nerves are essentially intact. Results - Laboratory Findings CBC and BMP: 07/06/21 06:14 07/05/21 15:16 Abnormal lab findings: Abnormal Labs 07/05/21 07/05/21 07/05/21 15:16 15:16 15:16 WBC 14.7 H Hct 46.4 H MCHC Immature Gran # Neutrophils # 12.4 H BUN 20 H Glucose 107 H Urine Appearance Cloudy H Urine Protein Trace H Urine Ketones Trace H Ur Leukocyte Esterase Small H Calcium Oxalate Crystal Many H Urine Mucus Rare H 07/06/21 06:14 WBC 10.45 H Hct MCHC 31.9 L Immature Gran # 0.06 H Neutrophils # BUN Glucose Urine Appearance Urine Protein Urine Ketones Ur Leukocyte Esterase Calcium Oxalate Crystal Urine Mucus - Diagnostic Findings Chest x-ray: image reviewed Assessment and Plan Plan: 1 subacute/chronic pneumonia post bronchoscopy and the cultures came back positive for pseudomonas aeruginosa. Noted the patient has had similar infections years back and the patient was hospitalized that the patient failed outpatient treatment and patient is quite symptomatic bronchospastic wheezing congested and failed outpatient treatment. 2 tracheobronchomalacia, due to direct bronchoscopic inspection/evaluation/observation 3 severe persistent bronchial asthma, with secondary exacerbation 4 ALLERGIC rhinitis 5 hypertension 6 osteoarthritis Plan We'll start the patient IV cefepime 2 g every 12 hours. Continue DuoNeb neb attachments around the clock. We will add IV cinnamon to 40 mg every 8 hours. Mucinex DM 1200 mg by mouth twice a day. Continue pulmonary toileting. May need another bronchoscopy during the course of his hospitalization as the patient has significant amount of trach bronchomalacia and purulent respiratory secretions. I would suggest giving a few days of IV antibiotics with subsequent decision if any. Bronchoscopy will be needed. We will also obtain a follow-up CAT scan of the chest. Obtain a baseline IgG level
[2021-07-06] MEDS: CEFEPIME 2 GM in SODIUM CHLORIDE 0.9% 100 ML IVPB SCH ×2 (16:44→23:24)
--- NOTE | 2021-07-06 17:41 | P.HPIM ---
History of Present Illness H&P Date: 07/05/21 Chief Complaint: Pneumonia 65yo F with PMH of asthma and chronic cough, presents to the emergency department today via private vehicle and the advice of her wet pan operator. Austin guadarrama had bronchoscopy due to chronic cough, bronchoscopy yielded evidence of Pseudomonas pneumonia and she was advised to come to the hospital for IV antibiotics. Patient denies any fevers but reports she's had some chills and clamminess lately. She reports her aggressively worsening cough. Denies chest pain. Note that she has completed a course of Zithromax, Augmentin and Levaquin on outpatient basis given to her by her wet pan operator and by her primary care physician. Pulmonary performed a bronchoscopy on this patient earlier this week. During the bronchoscopy, found significant tracheal bronchomalacia and there was significant amount of purulent respiratory secretions bilaterally. Bronchioloalveolar lavage was done and the cultures came back positive for pseudomonas aeruginosa. The patient accordingly was hospitalized as the patient was quite symptomatic, congested, bronchospastic and wheezy and she was not improving. She was hospitalized for IV antibiotic treatment. Review of Systems REVIEW OF SYSTEMS: CONSTITUTIONAL: No fever, no malaise, no fatigue. HEENT: No recent visual problems or hearing problems. Denied any sore throat. CARDIOVASCULAR: No chest pain, orthopnea, PND, no palpitations, no syncope. PULMONARY: No shortness of breath, no cough, no hemoptysis. GASTROINTESTINAL: No diarrhea, no nausea, no vomiting, no abdominal pain. NEUROLOGICAL: No headaches, no weakness, no numbness. HEMATOLOGICAL: Denies any bleeding or petechiae. GENITOURINARY: Denies any burning micturition, frequency, or urgency. MUSCULOSKELETAL/RHEUMATOLOGICAL: Denies any joint pain, swelling, or any muscle pain. ENDOCRINE: Denies any polyuria or polydipsia. The rest of the 14-point review of systems is negative. Past Medical History Past Medical History: Asthma, Hypertension, Osteoarthritis (OA), Pneumonia, Skin Disorder, Sleep Apnea/CPAP/BIPAP Additional Past Medical History / Comment(s): Palpitations, hx varicose veins, "mild" sleep apnea, hx ezcema, LBBB, "pressure in eyes from steroids". SOB recently., tracheal bronchial malacia. History of Any Multi-Drug Resistant Organisms: None Reported Past Surgical History: Adenoidectomy, Cholecystectomy, Hysterectomy, Joint Replacement, Orthopedic Surgery, Tonsillectomy Additional Past Surgical History / Comment(s): Bronchoscopy, rhinoplasty/deviated septum, right knee arthroscopy, bilateral knee replacements, vein stripping, left wrist surgery, A&P repair. Past Anesthesia/Blood Transfusion Reactions: Motion Sickness, Postoperative Nausea & Vomiting (PONV) Past Psychological History: Anxiety, Depression Additional Psychological History / Comment(s): Hx of, no treatment now. Smoking Status: Never smoker, Second hand smoke exposure Past Alcohol Use History: Occasional Past Drug Use History: None Reported Additional Drug Use History / Comment(s): Tried CBD oil but not using currently. - Past Family History Father Family Medical History: Deep Vein Thrombosis (DVT) Medications and Allergies Home Medications Medication Instructions Recorded Confirmed Type Albuterol Sulfate [Proventil Hfa] 2 puff INHALATION RT-Q6H PRN 09/08/13 07/05/21 History Montelukast [Singulair] 10 mg PO HS 09/08/13 07/05/21 History Progesterone, Micronized 100 mg PO HS 09/21/17 07/05/21 History [Progesterone] Theophylline 12 Hour [Migue-Dur] 300 mg PO BID 06/14/18 07/05/21 History ALPRAZolam [Xanax] 0.5 mg PO DAILY PRN 07/01/21 07/05/21 History Ipratropium-Albuterol Nebulize 3 ml INHALATION RT-Q6H PRN 07/01/21 07/05/21 History [Duoneb 0.5 mg-3 mg/3 ml Soln] Losartan [Cozaar] 25 mg PO HS 07/01/21 07/05/21 History Ciprofloxacin HCl [Cipro] 750 mg PO Q12H 07/05/21 07/05/21 History Fluticasone/Umeclidin/Vilanter 1 puff INHALATION RT-DAILY 07/05/21 07/05/21 History [Trelegy Ellipta 100-62.5-25] amLODIPine [Norvasc] 10 mg PO DAILY 07/05/21 07/05/21 History predniSONE See Taper PO DAILY 07/05/21 07/05/21 History Allergies Allergy/AdvReac Type Severity Reaction Status Date / Time Sulfa (Sulfonamide Allergy Rash/Hives Verified 07/05/21 15:45 Antibiotics) sulfamethoxazole Allergy Rash/Hives Verified 07/05/21 15:45 [From Bactrim] trimethoprim [From Bactrim] Allergy Rash/Hives/ Verified 07/05/21 15:45 fever/aches Physical Exam Vitals: Vital Signs Temp Pulse Pulse Resp BP BP Pulse Ox 07/05/21 18:01 98.4 F 70 17 164/84 96 07/05/21 18:00 98.4 F 07/05/21 17:45 98.7 F 64 18 143/82 94 L 07/05/21 16:27 98.2 F 64 20 145/92 94 L 07/05/21 14:31 98 F 83 22 118/75 94 L Intake and Output 07/05/21 07/05/21 07/05/21 06:59 14:59 22:59 Other: # Voids 1 Weight 85.275 kg 85.275 kg PHYSICAL EXAMINATION: GENERAL: The patient is alert and oriented x3, not in any acute distress. Well developed, well nourished. HEENT: Pupils are round and equally reacting to light. EOMI. No scleral icterus. No conjunctival pallor. Normocephalic, atraumatic. No pharyngeal erythema. No thyromegaly. CARDIOVASCULAR: S1 and S2 present. No murmurs, rubs, or gallops. PULMONARY: Chest is clear to auscultation, no wheezing or crackles. ABDOMEN: Soft, nontender, nondistended, normoactive bowel sounds. No palpable organomegaly. MUSCULOSKELETAL: No joint swelling or deformity. EXTREMITIES: No cyanosis, clubbing, or pedal edema. NEUROLOGICAL: Gross neurological examination did not reveal any focal deficits. SKIN: No rashes. Results CBC & Chem 7: 07/06/21 06:14 07/05/21 15:16 Labs: Abnormal Lab Results - Last 24 Hours (Table) 07/05/21 07/05/21 07/05/21 Range/Units 15:16 15:16 15:16 WBC 14.7 H (3.8-10.6) k/uL Hct 46.4 H (34.0-46.0) % Neutrophils # 12.4 H (1.3-7.7) k/uL BUN 20 H (7-17) mg/dL Glucose 107 H (74-99) mg/dL Urine Appearance Cloudy H (Clear) Urine Protein Trace H (Negative) Urine Ketones Trace H (Negative) Ur Leukocyte Esterase Small H (Negative) Calcium Oxalate Crystal Many H (None) /hpf Urine Mucus Rare H (None) /hpf Thrombosis Risk Factor Assmnt - Choose All That Apply Other Risk Factors: Yes Each Risk Factor Represents 2 Points: Age 61-74 years Thrombosis Risk Factor Assessment Total Risk Factor Score: 2 Thrombosis Risk Factor Assessment Level: Low Risk Assessment and Plan Assessment: 1. Pseudomonas pneumonia - Patient is status post bronchoscopy as indicated above and cultures came back positive for pseudomonas aeruginosa; patient had similar episode in the past at which time she failed outpatient treatment in ED and IV antibiotic therapy - Patient has been placed on cefepime 2 g IV every 12 hours; mucolytic therapy with Mucinex DM 1200 mg twice a day; pulmonary toileting is recommended 2. Tracheobronchomalacia; patient is status post bronchoscopy; pulmonary on board and anticipating another bronchoscopy pending course of hospitalization given significant amount of tracheobronchomalacia and purulent respiratory secretions - CT of the chest is ordered 3. Severe persistent bronchial asthma; acute exacerbation; nebulizer treatments with Atrovent 4 times a day and when necessary; singular 10 mg daily; continue with home dose of theophylline; continue with Solu-Medrol 40 mg IV every 8 hours 4. Hypertension; Norvasc 10 mg daily; losartan 25 mg daily at bedtime 5. Anxiety; Xanax 0.5 mg daily when necessary DVT prophylaxis; SCDs CODE STATUS; full code
[2021-07-06] MEDS: LOSARTAN 25 MG TAB PO SCH (20:22)
[2021-07-06] MEDS: MONTELUKAST 10 MG TAB PO SCH (20:22)
--- NOTE | 2021-07-06 22:29 | P.PN ---
Subjective Progress Note Date: 07/06/21 Principal diagnosis: Pseudomonas pneumonia Tracheobronchomalacia; patient is status post bronchoscopy Severe persistent bronchial asthma; acute exacerbation 65yo F with PMH of asthma and chronic cough, presents to the emergency department today via private vehicle and the advice of her child care assistant. Patient had bronchoscopy due to chronic cough, bronchoscopy yielded evidence of Pseudomonas pneumonia and she was advised to come to the hospital for IV antibiotics. Patient denies any fevers but reports she's had some chills and clamminess lately. She reports her aggressively worsening cough. Denies chest pain. Note that she has completed a course of Zithromax, Augmentin and Levaquin on outpatient basis given to her by her child care assistant and by her primary care physician. Pulmonary performed a bronchoscopy on this patient earlier this week. During the bronchoscopy, found significant tracheal bronchomalacia and there was significant amount of purulent respiratory secretions bilaterally. Bronchioloalveolar lavage was done and the cultures came back positive for pseudomonas aeruginosa. The patient accordingly was hospitalized as the patient was quite symptomatic, congested, bronchospastic and wheezy and she was not improving. She was hospitalized for IV antibiotic treatment. Objective - Vital Signs Vital signs: Vital Signs Temp 99.3 F 07/06/21 07:50 Pulse 72 07/06/21 11:47 Resp 18 07/06/21 07:50 BP 152/84 07/06/21 07:50 Pulse Ox 93 L 07/06/21 07:50 Intake & Output 07/05/21 07/06/21 07/06/21 18:59 06:59 18:59 Weight 85.275 kg Other: Voiding Method Toilet # Voids 1 1 - Exam GENERAL: The patient is alert and oriented x3, not in any acute distress. Well d eveloped, well nourished. HEENT: Pupils are round and equally reacting to light. EOMI. No scleral icterus. No conjunctival pallor. Normocephalic, atraumatic. No pharyngeal erythema. No thyromegaly. CARDIOVASCULAR: S1 and S2 present. No murmurs, rubs, or gallops. PULMONARY: Chest is clear to auscultation, no wheezing or crackles. ABDOMEN: Soft, nontender, nondistended, normoactive bowel sounds. No palpable organomegaly. MUSCULOSKELETAL: No joint swelling or deformity. EXTREMITIES: No cyanosis, clubbing, or pedal edema. NEUROLOGICAL: Gross neurological examination did not reveal any focal deficits. SKIN: No rashes. - Labs CBC & Chem 7: 07/06/21 06:14 07/05/21 15:16 Labs: Abnormal Lab Results - Last 24 Hours (Table) 07/05/21 07/05/21 07/05/21 Range/Units 15:16 15:16 15:16 WBC 14.7 H (3.8-10.6) k/uL Hct 46.4 H (34.0-46.0) % MCHC (32.0-37.0) g/dL Immature Gran # (0.00-0.04) X 10*3/uL Neutrophils # 12.4 H (1.3-7.7) k/uL BUN 20 H (7-17) mg/dL Glucose 107 H (74-99) mg/dL Urine Appearance Cloudy H (Clear) Urine Protein Trace H (Negative) Urine Ketones Trace H (Negative) Ur Leukocyte Esterase Small H (Negative) Calcium Oxalate Crystal Many H (None) /hpf Urine Mucus Rare H (None) /hpf 07/06/21 Range/Units 06:14 WBC 10.45 H (3.8-10.6) k/uL Hct (34.0-46.0) % MCHC 31.9 L (32.0-37.0) g/dL Immature Gran # 0.06 H (0.00-0.04) X 10*3/uL Neutrophils # (1.3-7.7) k/uL BUN (7-17) mg/dL Glucose (74-99) mg/dL Urine Appearance (Clear) Urine Protein (Negative) Urine Ketones (Negative) Ur Leukocyte Esterase (Negative) Calcium Oxalate Crystal (None) /hpf Urine Mucus (None) /hpf Assessment and Plan Assessment: 1. Pseudomonas pneumonia - Patient is status post bronchoscopy as indicated above and cultures came back positive for pseudomonas aeruginosa; patient had similar episode in the past at which time she failed outpatient treatment in ED and IV antibiotic therapy - Patient has been placed on cefepime 2 g IV every 12 hours; mucolytic therapy with Mucinex DM 1200 mg twice a day; pulmonary toileting is recommended 2. Tracheobronchomalacia; patient is status post bronchoscopy; pulmonary on board and anticipating another bronchoscopy pending course of hospitalization given significant amount of tracheobronchomalacia and purulent respiratory secretions - CT of the chest is ordered 3. Severe persistent bronchial asthma; acute exacerbation; nebulizer treatments with Atrovent 4 times a day and when necessary; singular 10 mg daily; continue with home dose of theophylline; continue with Solu-Medrol 40 mg IV every 8 hours 4. Hypertension; Norvasc 10 mg daily; losartan 25 mg daily at bedtime 5. Anxiety; Xanax 0.5 mg daily when necessary DVT prophylaxis; SCDs CODE STATUS; full code
--- NOTE | 2021-07-06 23:50 | P.CONS ---
History of Present Illness - Reason for Consult Consult date: 07/06/21 Pseudomonas pneumonia Requesting physician: Natasha Lozano - Chief Complaint Shortness of breath and cough x few weeks - History of Present Illness Patient is a 65-year-old female with a past medical history significant for chronic bronchial asthma this patient history of recurrent pneumonia, patient mention she has been treated with multiple courses of anti biotics since December of last year and apparently the patient recently did have a bronchoscopy completed the [facility] culture finalized as Pseudomonas aeruginosa and the patient was sent to the ER yesterday by her batting machine operator for admission to the hospital for IV antibiotic therapy. Patient has been complaining of increasing shortness of breath she also have a cough which is moderate in intensity and is bringing up some yellowish-greenish sputum no hemoptysis patient denies having any pleuritic chest pain has been complaining of some nausea but no vomiting decreased oral intake abdominal pain no diarrhea, patient on presentation to the hospital was afebrile and no fever had recorded subsequently patient did have mild hypoxemia with O2 sats of 93 -94% on room air patient did have white count 14.7 with a left shift kidney function was normal urine was mildly positive bronchoscopy cultures completed 07/02/2021 is growing Pseudomonas aeruginosa sensitive to cefepime patient did have a chest x-ray no significant overall change in the right middle lobe infiltrate patient did have a CT of the chest airspace consolidation in the right middle lobe with additional scattered and nodular and groundglass areas of infiltrate within the right upper lobe left upper lobe and lower lobes consistent with multifocal pneumonia Review of Systems CONSTITUTIONAL: Positive for weakness. Denies high-grade Fever EYES: No complaint. ENT:No complaint. RESPIRATORY: As per history of present illness. CARDIOVASCULAR: No complaint. GENITOURINARY: No complaint. GASTROINTESTINAL: As per history of present illness. MUSCULOSKELETAL: No complaint. INTEGUMENTARY: No complaint. PSYCHOLOGICAL: No complaint. ENDOCRINE: No complaint. NEUROLOGIC: No complaint. Past Medical History Past Medical History: Asthma, Hypertension, Osteoarthritis (OA), Pneumonia, Skin Disorder, Sleep Apnea/CPAP/BIPAP Additional Past Medical History / Comment(s): Palpitations, hx varicose veins, "mild" sleep apnea, hx ezcema, LBBB, "pressure in eyes from steroids". SOB recently., tracheal bronchial malacia. History of Any Multi-Drug Resistant Organisms: None Reported Past Surgical History: Adenoidectomy, Cholecystectomy, Hysterectomy, Joint Replacement, Orthopedic Surgery, Tonsillectomy Additional Past Surgical History / Comment(s): Bronchoscopy, r hinoplasty/deviated septum, right knee arthroscopy, bilateral knee replacements, vein stripping, left wrist surgery, A&P repair. Past Anesthesia/Blood Transfusion Reactions: Motion Sickness, Postoperative Nausea & Vomiting (PONV) Past Psychological History: Anxiety, Depression Additional Psychological History / Comment(s): Hx of, no treatment now. Smoking Status: Never smoker, Second hand smoke exposure Past Alcohol Use History: Occasional Past Drug Use History: None Reported Additional Drug Use History / Comment(s): Tried CBD oil but not using currently. - Past Family History Father Family Medical History: Deep Vein Thrombosis (DVT) Medications and Allergies Home Medications Medication Instructions Recorded Confirmed Type Albuterol Sulfate [Proventil Hfa] 2 puff INHALATION RT-Q6H PRN 09/08/13 07/05/21 History Montelukast [Singulair] 10 mg PO HS 09/08/13 07/05/21 History Progesterone, Micronized 100 mg PO HS 09/21/17 07/05/21 History [Progesterone] Theophylline 12 Hour [Migue-Dur] 300 mg PO BID 06/14/18 07/05/21 History ALPRAZolam [Xanax] 0.5 mg PO DAILY PRN 07/01/21 07/05/21 History Ipratropium-Albuterol Nebulize 3 ml INHALATION RT-Q6H PRN 07/01/21 07/05/21 History [Duoneb 0.5 mg-3 mg/3 ml Soln] Losartan [Cozaar] 25 mg PO HS 07/01/21 07/05/21 History Ciprofloxacin HCl [Cipro] 750 mg PO Q12H 07/05/21 07/05/21 History Fluticasone/Umeclidin/Vilanter 1 puff INHALATION RT-DAILY 07/05/21 07/05/21 History [Trelegy Ellipta 100-62.5-25] amLODIPine [Norvasc] 10 mg PO DAILY 07/05/21 07/05/21 History predniSONE See Taper PO DAILY 07/05/21 07/05/21 History Allergies Allergy/AdvReac Type Severity Reaction Status Date / Time Sulfa (Sulfonamide Allergy Rash/Hives Verified 07/05/21 15:45 Antibiotics) sulfamethoxazole Allergy Rash/Hives Verified 07/05/21 15:45 [From Bactrim] trimethoprim [From Bactrim] Allergy Rash/Hives/ Verified 07/05/21 15:45 fever/aches Physical Exam Vitals: Vital Signs Temp Pulse Pulse Resp BP BP BP 07/06/21 11:47 72 07/06/21 11:34 72 07/06/21 08:14 76 07/06/21 08:02 76 07/06/21 07:50 99.3 F 74 18 152/84 07/06/21 02:25 98.3 F 74 18 162/80 07/06/21 02:15 66 07/06/21 02:05 72 07/05/21 21:21 75 07/05/21 21:14 69 07/05/21 20:48 97.9 F 71 18 145/81 07/05/21 18:01 98.4 F 70 17 164/84 07/05/21 18:00 98.4 F 07/05/21 17:45 98.7 F 64 18 143/82 07/05/21 16:27 98.2 F 64 20 145/92 Pulse Ox 07/06/21 11:47 07/06/21 11:34 07/06/21 08:14 07/06/21 08:02 07/06/21 07:50 93 L 07/06/21 02:25 95 07/06/21 02:15 07/06/21 02:05 07/05/21 21:21 07/05/21 21:14 07/05/21 20:48 95 07/05/21 18:01 96 07/05/21 18:00 07/05/21 17:45 94 L 07/05/21 16:27 94 L Intake and Output 07/05/21 07/06/21 07/06/21 22:59 06:59 14:59 Other: Voiding Method Toilet # Voids 1 1 Weight 85.275 kg GENERAL DESCRIPTION: Middle-aged female lying in bed, no distress. No tachypnea or accessory muscle of respiration use. HEENT: Shows Pallor , no scleral icterus. Oral mucous membrane is dry. No pharyngeal erythema or thrush NECK: Trachea central, no thyromegaly. LUNGS: Unlabored breathing. Coarse breath sounds bilaterally HEART: S1, S2, regular rate and rhythm. No loud murmur ABDOMEN: Soft, no tenderness , guarding or rigidity, no organomegaly EXTREMITIES: No edema of feet. SKIN: No rash, no masses palpable. NEUROLOGICAL: The patient is awake, alert, oriented x3, mood and affect normal. Results CBC & Chem 7: 07/06/21 06:14 07/05/21 15:16 Labs: Abnormal Lab Results - Last 24 Hours (Table) 07/05/21 07/05/21 07/05/21 Range/Units 15:16 15:16 15:16 WBC 14.7 H (3.8-10.6) k/uL Hct 46.4 H (34.0-46.0) % MCHC (32.0-37.0) g/dL Immature Gran # (0.00-0.04) X 10*3/uL Neutrophils # 12.4 H (1.3-7.7) k/uL BUN 20 H (7-17) mg/dL Glucose 107 H (74-99) mg/dL Urine Appearance Cloudy H (Clear) Urine Protein Trace H (Negative) Urine Ketones Trace H (Negative) Ur Leukocyte Esterase Small H (Negative) Calcium Oxalate Crystal Many H (None) /hpf Urine Mucus Rare H (None) /hpf 07/06/21 Range/Units 06:14 WBC 10.45 H (3.8-10.6) k/uL Hct (34.0-46.0) % MCHC 31.9 L (32.0-37.0) g/dL Immature Gran # 0.06 H (0.00-0.04) X 10*3/uL Neutrophils # (1.3-7.7) k/uL BUN (7-17) mg/dL Glucose (74-99) mg/dL Urine Appearance (Clear) Urine Protein (Negative) Urine Ketones (Negative) Ur Leukocyte Esterase (Negative) Calcium Oxalate Crystal (None) /hpf Urine Mucus (None) /hpf Assessment and Plan (1) Pseudomonas pneumonia Current Visit: Yes Status: Acute Code(s): J15.1 - PNEUMONIA DUE TO PSEUDOMONAS SNOMED Code(s): 66890506 Plan: 1patient presented to the hospital with increasing shortness of breath and cough with purulent sputum in this patient did have evidence of multifocal pneumonia secondary to Pseudomonas aeruginosa pending outpatient oral antibiotic therapy. 2patient with a history of bronchial asthma and history of recurrent pneumonia possible bronchiectasis responsible for these recurrent episodes of pneumonia. 3cefepime 2 g every 8 hour, PICC line will be order for outpatient IV antib iotic therapy Patient did have multiple questions and concerns were answered in layman term We will follow on clinical condition and cultures to further adjust medication if needed Thank you for this consultation will follow this patient along with you
[2021-07-07] MEDS: ACETAMINOPHEN TAB 325 MG TAB PO PRN (04:00)
[2021-07-07] MEDS: CEFEPIME 2 GM in SODIUM CHLORIDE 0.9% 100 ML IVPB SCH ×2 (06:59→15:23)
[2021-07-07] MEDS: THEOPHYLLINE 24 HOUR 300 MG CAP.ER.24H PO SCH (06:59)
[2021-07-07] MEDS: amLODIPine 10 MG TAB PO SCH (06:59)
[2021-07-07] MEDS: guaiFENesin 600 MG TABLET.ER PO SCH ×2 (06:59→20:25)
[2021-07-07] MEDS: methylPREDNISolone SOD SUCCI 40 MG/ML 1 ML VIAL IV SCH ×2 (08:33→15:18)
[2021-07-07] MEDS: IPRATROPIUM 0.5 MG/2.5 ML NEBU INHALATION SCH ×4 (08:42→20:48)
[2021-07-07] MEDS: IPRATROPIUM-ALBUTEROL 3 ML NEB INHALATION PRN ×4 (08:42→20:46)
[2021-07-07 08:55] LABS: Anion Gap 14.7 mmol/L (10.00-18.00); BUN/Creat Ratio 19.24 Ratio (12.00-20.00); Blood Urea Nitrogen 15.1 mg/dL (9.0-27.0); C Reactive Protein 5.1 mg/dL (0.00-0.80); Calcium 9.5 mg/dL (8.7-10.3); Carbon Dioxide 18.9 mmol/L (20.0-27.5); Non-African American GFR(CKD) 80.3 (60.0-200.0); Potassium 4.4 mmol/L (3.5-5.5)
[2021-07-07 09:39] LABS: Basophils # (A) 0.01 X 10*3/uL (0.00-0.10); Basophils % (A) 0.1 %; Eosinophils # (A) 0 X 10*3/uL (0.04-0.35); Eosinophils % (A) 0 %; HCT 46.5 % (37.2-46.3); HGB 14.9 g/dL (12.0-15.0); Lymphocytes # (A) 0.98 X 10*3/uL (0.90-5.00); Lymphocytes % (A) 9.3 %; MCH 29.6 pg (27.0-32.0); MCV 92.3 fL (80.0-97.0); Mean Platelet Volume 10.5 fL (9.5-12.2); Monocytes # (A) 0.19 X 10*3/uL (0.20-1.00); Monocytes % (A) 1.8 %; NRBC Per 100 WBC 0 /100 WBCS (0.0-0.0); Neutrophils # (A) 9.24 X 10*3/uL (1.80-7.70); Neutrophils % (A) 87.8 %; Platelet Count 356 X 10*3/uL (140-440); RBC 5.04 X 10*6/uL (4.10-5.20); RDW 13.9 % (11.5-14.5); WBC 10.52 X 10*3/uL (4.50-10.00)
[2021-07-07] MEDS: SODIUM CHLORIDE 0.9% 1,000 ML IV SCH (11:54)
--- NOTE | 2021-07-07 13:18 | P.PN ---
Subjective Progress Note Date: 07/07/21 On 07/07/2021, the patient is being treated for multilobar pneumonia more so on the right. CAT scan of the chest was done yesterday and shows no clear indication for bronchiectasis. The patient has bronchial wall thickening and extensive consolidation of the right middle lobe area. This is attributed to pseudomonal pneumonia. The patient also has a low IgG level probably relatively immunosuppressed and IgE level is the 600s range and the patient has severe persistent bronchial asthma. Patient is currently on IV cefepime. The patient was also started on IV steroids. Less bronchospastic. Less wheezing compared to yesterday. No other new complaints otherwise for now. Her blood work shows a white cell count of 10.2 with a hemoglobin 14.9. The creatinine is 0.8 with a sodium level of 138 and the pro-calcitonin level was at 0.03. Serum IgG is at 646. Objective - Vital Signs Vital signs: Vital Signs Temp 99.2 F 07/07/21 08:00 Pulse 84 07/07/21 12:11 Resp 18 07/07/21 08:45 BP 115/73 07/07/21 08:00 Pulse Ox 94 L 07/07/21 08:00 Intake & Output 07/06/21 07/07/21 07/07/21 18:59 06:59 18:59 Intake Total 1080 Balance 1080 Intake: Oral 1080 Other: Voiding Method Toilet Toilet # Voids 3 3 - Exam Gen. appearance she is calm and comfortable no acute distress Head exam was generally normal. There was no scleral icterus or corneal arcus. Mucous membranes were moist. Neck was supple and without jugular venous distension, thyromegaly, or carotid bruits. Carotids were easily palpable bilaterally. There was no adenopathy. Lungs sounds are diminished and the patient is diffuse expiratory wheezes throughout the lung his bilaterally and scattered rhonchi heard throughout the lung maria Cardiac exam revealed the PMI to be normally situated and sized. The rhythm was regular and no extrasystoles were noted during several minutes of auscultation. The first and second heart sounds were normal and physiologic splitting of the second heart sound was noted. There were no murmurs, rubs, clicks, or gallops. Abdominal exam revealed normal bowel sounds. The abdomen was soft, non-tender, and without masses, organomegaly, or appreciable enlargement of the abdominal aorta. Examination of the extremities revealed easily palpable radial, femoral and pedal pulses. There was no cyanosis, clubbing or edema. Examination of the skin revealed no evidence of significant rashes, suspicious appearing nevi or other concerning lesions. Neurologically, the patient is awake and alert and the patient does not have any focal neurological deficit. Cranial nerves are essentially intact. - Labs CBC & Chem 7: 07/07/21 05:16 07/07/21 05:16 Labs: Abnormal Lab Results - Last 24 Hours (Table) 07/06/21 07/07/21 07/07/21 Range/Units 06:14 05:16 05:16 WBC 10.52 H (4.50-10.00) X 10*3/uL Hct 46.5 H (37.2-46.3) % Immature Gran # 0.10 H (0.00-0.04) X 10*3/uL Neutrophils # 9.24 H (1.80-7.70) X 10*3/uL Monocytes # 0.19 L (0.20-1.00) X 10*3/uL Eosinophils # 0 L (0.04-0.35) X 10*3/uL Carbon Dioxide 18.9 L (20.0-27.5) mmol/L Glucose 144 H (70-110) mg/dL C-Reactive Protein 5.10 H (0.00-0.80) mg/dL IgG 646.0 L (700.0-1600.0) mg/dL Microbiology - Last 24 Hours (Table) 07/06/21 10:13 Gram Stain - Preliminary Sputum Sputum Culture - Preliminary 07/05/21 16:00 Blood Culture - Preliminary Blood No Growth after 24 hours 07/05/21 15:40 Blood Culture - Preliminary Blood No Growth after 24 hours Assessment and Plan Plan: 1 subacute/chronic pneumonia post bronchoscopy and the cultures came back positive for pseudomonas aeruginosa. Noted the patient has had similar infections years back and the patient was hospitalized that the patient failed outpatient treatment and patient is quite symptomatic bronchospastic wheezing congested and failed outpatient treatment.. No indication of any underlying bronchiectasis. The patient has some low IgG level of 646 which is expected to be higher in the setting of an acute pneumonia. At the same time, the CAT scan of the chest is showing multilobar pneumonia more so in the right middle lobe area. She does have trigger bronchomalacia due to direct bronchoscopic observation. 2 tracheobronchomalacia, due to direct bronchoscopic inspection/evaluation/observation 3 severe persistent bronchial asthma, with secondary exacerbation 4 ALLERGIC rhinitis 5 hypertension 6 osteoarthritis Plan Continue IV cefepime Continue IV Solu-Medrol Continue bronchodilators Clinically improving May consider repeat bronchoscopy as the patient is check a bronchomalacia and she will benefit from pulmonary toileting Baseline IgG level is slightly lower than normal We'll follow
[2021-07-07] MEDS: PANTOPRAZOLE 40 MG TABLET PO SCH (16:38)
[2021-07-07] MEDS: MAG HYDROX/AL HYDROX/SIMETH 30 ML CUP PO PRN (18:24)
[2021-07-07] MEDS: MONTELUKAST 10 MG TAB PO SCH (20:25)
[2021-07-07] MEDS: LOSARTAN 25 MG TAB PO SCH (20:25)
--- NOTE | 2021-07-08 00:14 | P.PN ---
Subjective Progress Note Date: 07/07/21 Principal diagnosis: Pseudomonas pneumonia Tracheobronchomalacia; patient is status post bronchoscopy Severe persistent bronchial asthma; acute exacerbation 65yo F with PMH of asthma and chronic cough, presents to the emergency department today via private vehicle and the advice of her candle molder. Patient had bronchoscopy due to chronic cough, bronchoscopy yielded evidence of Pseudomonas pneumonia and she was advised to come to the hospital for IV antibiotics. Patient denies any fevers but reports she's had some chills and clamminess lately. She reports her aggressively worsening cough. Denies chest pain. Note that she has completed a course of Zithromax, Augmentin and Levaquin on outpatient basis given to her by her candle molder and by her primary care physician. Pulmonary performed a bronchoscopy on this patient earlier this week. During the bronchoscopy, found significant tracheal bronchomalacia and there was significant amount of purulent respiratory secretions bilaterally. Bronchioloalveolar lavage was done and the cultures came back positive for pseudomonas aeruginosa. The patient accordingly was hospitalized as the patient was quite symptomatic, congested, bronchospastic and wheezy and she was not improving. She was hospitalized for IV antibiotic treatment. 07/07/21 Patient seen and evaluated. Complaining of heartburn Vital signs; temp 99.2, pulse 84, BP 115/73 Labs WBC 10.2, hGB 14.9, Na 138, Procal 0.03 Patient remains on IV cefepime, solu-medrol. Continue with bronchodilators therapy Pulmonary on board and considering possible repeat broncoscopy to follow up on bronchomalacia Objective - Vital Signs Vital signs: Vital Signs Temp 99.2 F 07/07/21 08:00 Pulse 84 07/07/21 12:11 Resp 18 07/07/21 08:45 BP 115/73 07/07/21 08:00 Pulse Ox 94 L 07/07/21 08:00 Intake & Output 07/06/21 07/07/21 07/07/21 18:59 06:59 18:59 Intake Total 1080 Balance 1080 Intake: Oral 1080 Other: Voiding Method Toilet Toilet # Voids 3 3 - Exam GENERAL: The patient is alert and oriented x3, not in any acute distress. Well developed, well nourished. HEENT: Pupils are round and equally reacting to light. EOMI. No scleral icterus. No conjunctival pallor. Normocephalic, atraumatic. No pharyngeal erythema. No thyromegaly. CARDIOVASCULAR: S1 and S2 present. No murmurs, rubs, or gallops. PULMONARY: Chest is clear to auscultation, no wheezing or crackles. ABDOMEN: Soft, nontender, nondistended, normoactive bowel sounds. No palpable or ganomegaly. MUSCULOSKELETAL: No joint swelling or deformity. EXTREMITIES: No cyanosis, clubbing, or pedal edema. NEUROLOGICAL: Gross neurological examination did not reveal any focal deficits. SKIN: No rashes. - Labs CBC & Chem 7: 07/07/21 05:16 07/07/21 05:16 Labs: Abnormal Lab Results - Last 24 Hours (Table) 07/06/21 07/07/21 07/07/21 Range/Units 06:14 05:16 05:16 WBC 10.52 H (4.50-10.00) X 10*3/uL Hct 46.5 H (37.2-46.3) % Immature Gran # 0.10 H (0.00-0.04) X 10*3/uL Neutrophils # 9.24 H (1.80-7.70) X 10*3/uL Monocytes # 0.19 L (0.20-1.00) X 10*3/uL Eosinophils # 0 L (0.04-0.35) X 10*3/uL Carbon Dioxide 18.9 L (20.0-27.5) mmol/L Glucose 144 H (70-110) mg/dL C-Reactive Protein 5.10 H (0.00-0.80) mg/dL IgG 646.0 L (700.0-1600.0) mg/dL Microbiology - Last 24 Hours (Table) 07/06/21 10:13 Gram Stain - Preliminary Sputum Sputum Culture - Preliminary 07/05/21 16:00 Blood Culture - Preliminary Blood No Growth after 24 hours 07/05/21 15:40 Blood Culture - Preliminary Blood No Growth after 24 hours Assessment and Plan Assessment: 1. Pseudomonas pneumonia - Patient is status post bronchoscopy as indicated above and cultures came back positive for pseudomonas aeruginosa; patient had similar episode in the past at which time she failed outpatient treatment in ED and IV antibiotic therapy - Patient has been placed on cefepime 2 g IV every 12 hours; mucolytic therapy with Mucinex DM 1200 mg twice a day; pulmonary toileting is recommended 2. Tracheobronchomalacia; patient is status post bronchoscopy; pulmonary on board and anticipating another bronchoscopy pending course of hospitalization given significant amount of tracheobronchomalacia and purulent respiratory secretions - CT of the chest is ordered 3. Severe persistent bronchial asthma; acute exacerbation; nebulizer treatments with Atrovent 4 times a day and when necessary; singular 10 mg daily; continue with home dose of theophylline; continue with Solu-Medrol 40 mg IV every 8 hours 4. Hypertension; Norvasc 10 mg daily; losartan 25 mg daily at bedtime 5. Anxiety; Xanax 0.5 mg daily when necessary DVT prophylaxis; SCDs CODE STATUS; full code
[2021-07-08] MEDS: methylPREDNISolone SOD SUCCI 40 MG/ML 1 ML VIAL IV SCH ×3 (00:53→16:36)
[2021-07-08] MEDS: MAG HYDROX/AL HYDROX/SIMETH 30 ML CUP PO PRN ×2 (00:53→14:49)
[2021-07-08] MEDS: CEFEPIME 2 GM in SODIUM CHLORIDE 0.9% 100 ML IVPB SCH ×3 (00:53→16:35)
[2021-07-08] MEDS: ACETAMINOPHEN TAB 325 MG TAB PO PRN ×2 (00:54→14:50)
[2021-07-08] MEDS: ALPRAZolam 0.5 MG TAB PO PRN (00:54)
[2021-07-08] MEDS: IPRATROPIUM-ALBUTEROL 3 ML NEB INHALATION PRN (01:28)
[2021-07-08 07:40] VITALS: RESP 18
[2021-07-08] MEDS: IPRATROPIUM 0.5 MG/2.5 ML NEBU INHALATION SCH ×4 (08:00→20:15)
[2021-07-08] MEDS: amLODIPine 10 MG TAB PO SCH (08:32)
[2021-07-08] MEDS: guaiFENesin 600 MG TABLET.ER PO SCH ×2 (08:32→19:39)
[2021-07-08] MEDS: PANTOPRAZOLE 40 MG TABLET PO SCH ×2 (08:33→17:19)
[2021-07-08] MEDS: THEOPHYLLINE 24 HOUR 300 MG CAP.ER.24H PO SCH (08:33)
--- NOTE | 2021-07-08 14:19 | P.PN ---
Subjective Progress Note Date: 07/08/21 Principal diagnosis: Shortness of breath, cough On 07/07/2021, the patient is being treated for multilobar pneumonia more so on the right. CAT scan of the chest was done yesterday and shows no clear indication for bronchiectasis. The patient has bronchial wall thickening and extensive consolidation of the right middle lobe area. This is attributed to pseudomonal pneumonia. The patient also has a low IgG level probably relatively immunosuppressed and IgE level is the 600s range and the patient has severe persistent bronchial asthma. Patient is currently on IV cefepime. The patient was also started on IV steroids. Less bronchospastic. Less wheezing compared to yesterday. No other new complaints otherwise for now. Her blood work shows a white cell count of 10.2 with a hemoglobin 14.9. The creatinine is 0.8 with a sodium level of 138 and the pro-calcitonin level was at 0.03. Serum IgG is at 646. On 07/08/2021 patient seen in follow-up on medical surgical floor, she is on room air, still coughing, but overall doing better. Room air pulse ox is 97%, she is afebrile, hemodynamically she is been stable. Her sputum culture is showing gram-negative bacilli, fungal culture is pending, blood cultures have been negative. Her BAL from the recent Bronch wash on all 07/02/2021 showed pseudomonas aeruginosa. Patient is currently on cefepime, she remains on nebulized bronchodilators, she remains on Mucinex and IV steroids. Clinically stable, improving Objective - Vital Signs Vital signs: Vital Signs Temp 98.5 F 07/08/21 07:39 Pulse 72 07/08/21 12:17 Resp 18 07/08/21 07:39 BP 148/80 07/08/21 07:39 Pulse Ox 97 07/08/21 07:39 Intake & Output 07/07/21 07/08/21 07/08/21 18:59 06:59 18:59 Intake Total 450 Output Total 650 Balance -200 Intake: Oral 450 Output: Urine 650 Other: Voiding Method Toilet Toilet Toilet # Voids 2 - Exam GENERAL EXAM: Alert, very pleasant, 65-year-old white female, on room air with a pulse ox of 97% comfortable in no apparent distress. HEAD: Normocephalic/atraumatic. EYES: Normal reaction of pupils, equal size. Conjunctiva pink, sclera white. NOSE: Clear with pink turbinates. THROAT: No erythema or exudates. NECK: No masses, no JVD, no thyroid enlargement, no adenopathy. CHEST: No chest wall deformity. Symmetrical expansion. LUNGS: Equal air entry with no crackles, wheeze, rhonchi or dullness. CVS: Regular rate and rhythm, normal S1 and S2, no gallops, no murmurs, no rubs ABDOMEN: Soft, nontender. No hepatosplenomegaly, normal bowel sounds, no guarding or rigidity. EXTREMITIES: No clubbing, no edema, no cyanosis, 2+ pulses and upper and lower extremities. MUSCULOSKELETAL: Muscle strength and tone normal. SPINE: No scoliosis or deformity SKIN: No rashes CENTRAL NERVOUS SYSTEM: Alert and oriented -3. No focal deficits, tone is normal in all 4 extremities. PSYCHIATRIC: Alert and oriented -3. Appropriate affect. Intact judgment and insight. - Labs CBC & Chem 7: 07/07/21 05:16 07/07/21 05:16 Labs: Microbiology - Last 24 Hours (Table) 07/06/21 10:13 Gram Stain - Preliminary Sputum Sputum Culture - Preliminary Gram Neg Bacilli 07/05/21 15:40 Blood Culture - Preliminary Blood No Growth after 48 hours 07/05/21 16:00 Blood Culture - Preliminary Blood No Growth after 48 hours Assessment and Plan Plan: Assessment: #1. Subacute/chronic pneumonia post-bronchoscopy, with sputum culture showing gram-negative bacilli. Recent bronchoscopy on 07/02/2021 showed pseudomonas aeruginosa. Patient has had similar infections years back, with hospitalization. Patient said failed outpatient treatment with multiple rounds of antibiotics. She continued to have ongoing symptoms of wheezing and cough. No indication of underlying bronchiectasis, patient had some low IgG level of 64 6 which is expected to be higher in the setting of an acute pneumonia. Computed tomography scan of the chest showing multilobar pneumonia more so in the right middle lobe area. Patient does have tracheobronchomalacia noted during bronchoscopic observation #2. Tracheal bronchomalacia, observed on bronchoscopic evaluation on 07/02/2021 #3. Severe persistent bronchial asthma with secondary exacerbation #4. ALLERGIC rhinitis #5. Hypertension #6. I stressed right Plan: Patient is improving with medical treatments Continue encouraging deep breathing and coughing Continue current dose IV steroids and antibiotics Awaiting final results of sputum culture, most likely will be also positive for pseudomonas aeruginosa Clinically patient is improving, No plans for repeat bronchoscopy right now I have personally seen and examined the patient, performed the documentation and the assessment and plan as written. Number of minutes spent on the visit: 10 Time with Patient: Less than 30
--- NOTE | 2021-07-08 14:42 | IR ---
PICC LINE PLACEMENT: HISTORY: Infection requiring long-term antibiotic therapy PROCEDURE: Ultrasound and fluoroscopic guidance of PICC line placement. COMPLICATIONS: None ANESTHESIA: 1. 1% Lidocaine locally. FINDINGS/TECHNIQUE: The procedure was explained to the patient. The risks, complications, benefits and alternatives were discussed and any questions were answered. Informed consent was obtained. The patient was placed supine on the fluoroscopic table and prepped and draped in the usual sterile fash ion. Utilizing a 21 gauge needle and sonographic and fluoroscopic guidance, access in the left ceph alic vein was achieved and there is placement of a 0.018 guidewire. The vein is patent. A 4-F sheat h was placed over the guidewire. The guidewire and dilator were removed and a 4-F. PICC line was nael garrett through the sheath with the tip at the level of the SVC. The sheath was removed, the catheter wa s flushed and sutured into position. The patient was stable throughout the procedure and remained st able upon discharge from the Department of Radiology. The vein puncture was patent under ultrasound. A leyva scale image was obtained to document patency of the vein punctured. All elements of the maximal barrier technique were utilized. FLUOROSCOPY TIME: 0.4 minutes and one image submitted IMPRESSION: Successful PICC line placement under ultrasound and fluoroscopic guidance.
[2021-07-08] MEDS: SODIUM CHLORIDE 0.9% 1,000 ML IV SCH ×2 (15:50→16:32)
[2021-07-08] MEDS: MONTELUKAST 10 MG TAB PO SCH (19:39)
[2021-07-08] MEDS: LOSARTAN 25 MG TAB PO SCH (19:39)
--- NOTE | 2021-07-08 23:56 | P.PN ---
Subjective Progress Note Date: 07/07/21 Principal diagnosis: Pseudomonas pneumonia Patient is a 65-year-old female with a past medical history significant for bronchial asthma history of recurrent pneumonia with a recent bronchoscopy and outpatient culture positive for pseudomonas aeruginosa admitted to the hospital for IV antibiotic therapy. On today's evaluation that is 07/07/2021, the patient denies having any fever or any chills, the patient is breathing slightly comfortably, patient denies having any chest pain no worsening cough or sputum production no abdominal pain no diarrhea Objective - Vital Signs Vital signs: Vital Signs Temp 98 F 07/07/21 14:00 Pulse 82 07/07/21 16:10 Resp 18 07/07/21 08:45 BP 128/75 07/07/21 14:00 Pulse Ox 93 L 07/07/21 14:00 Intake & Output 07/06/21 07/07/21 07/07/21 18:59 06:59 18:59 Intake Total 1080 200 Output Total 650 Balance 1080 -450 Intake: Oral 1080 200 Output: Urine 650 Other: Voiding Method Toilet Toilet # Voids 3 3 - Exam GENERAL DESCRIPTION: Middle-aged female lying in bed in no distress RESPIRATORY SYSTEM: Unlabored breathing , bilateral expiratory wheeze HEART: S1 S2 regular rate and rhythm , ABDOMEN: Soft , no tenderness EXTREMITIES: No edema feet - Labs CBC & Chem 7: 07/07/21 05:16 07/07/21 05:16 Labs: Abnormal Lab Results - Last 24 Hours (Table) 07/06/21 07/07/21 07/07/21 Range/Units 06:14 05:16 05:16 WBC 10.52 H (4.50-10.00) X 10*3/uL Hct 46.5 H (37.2-46.3) % Immature Gran # 0.10 H (0.00-0.04) X 10*3/uL Neutrophils # 9.24 H (1.80-7.70) X 10*3/uL Monocytes # 0.19 L (0.20-1.00) X 10*3/uL Eosinophils # 0 L (0.04-0.35) X 10*3/uL Carbon Dioxide 18.9 L (20.0-27.5) mmol/L Glucose 144 H (70-110) mg/dL C-Reactive Protein 5.10 H (0.00-0.80) mg/dL IgG 646.0 L (700.0-1600.0) mg/dL Microbiology - Last 24 Hours (Table) 07/06/21 10:13 Gram Stain - Preliminary Sputum Sputum Culture - Preliminary 07/05/21 16:00 Blood Culture - Preliminary Blood No Growth after 24 hours 07/05/21 15:40 Blood Culture - Preliminary Blood No Growth after 24 hours Assessment and Plan (1) Pseudomonas pneumonia Current Visit: Yes Status: Acute Code(s): J15.1 - PNEUMONIA DUE TO PSEUDOMONAS SNOMED Code(s): 80930997 Plan: 1patient presented to the hospital with increasing shortness of breath and cough with purulent sputum in this patient did have evidence of multifocal pneumonia secondary to Pseudomonas aeruginosa failing outpatient oral antibiotic therapy. 2patient with a history of bronchial asthma and history of recurrent pneumonia possible bronchiectasis responsible for these recurrent episodes of pneumonia. 3cefepime 2 g every 8 hour, PICC line will be order tomorrow for outpatient IV antibiotic therapy, and social work case manager to arrange for outpatient IV antibiotics Patient did have multiple questions and concerns were answered in layman term Time with Patient: Less than 30
--- NOTE | 2021-07-08 23:57 | P.PN ---
Subjective Progress Note Date: 07/08/21 Principal diagnosis: Pseudomonas pneumonia Patient is a 65-year-old female with a past medical history significant for bronchial asthma history of recurrent pneumonia with a recent bronchoscopy and outpatient culture positive for pseudomonas aeruginosa admitted to the hospital for IV antibiotic therapy. On today's evaluation that is 07/08/2021, the patient is afebrile, the patient is breathing slightly comfortably, patient denies having any chest pain , the patient cough is decreased intensity and less been production, the patient denies any abdominal pain and no diarrhea Objective - Vital Signs Vital signs: Vital Signs Temp 98.5 F 07/08/21 07:39 Pulse 72 07/08/21 12:17 Resp 18 07/08/21 07:39 BP 148/80 07/08/21 07:39 Pulse Ox 97 07/08/21 07:39 Intake & Output 07/07/21 07/08/21 07/08/21 18:59 06:59 18:59 Intake Total 450 Output Total 650 Balance -200 Intake: Oral 450 Output: Urine 650 Other: Voiding Method Toilet Toilet Toilet # Voids 2 - Exam GENERAL DESCRIPTION: Middle-aged female lying in bed in no distress RESPIRATORY SYSTEM: Unlabored breathing , bilateral expiratory wheeze HEART: S1 S2 regular rate and rhythm , ABDOMEN: Soft , no tenderness EXTREMITIES: No edema feet - Labs CBC & Chem 7: 07/07/21 05:16 07/07/21 05:16 Labs: Microbiology - Last 24 Hours (Table) 07/06/21 10:13 Gram Stain - Preliminary Sputum Sputum Culture - Preliminary Gram Neg Bacilli 07/05/21 15:40 Blood Culture - Preliminary Blood No Growth after 48 hours 07/05/21 16:00 Blood Culture - Preliminary Blood No Growth after 48 hours Assessment and Plan (1) Pseudomonas pneumonia Current Visit: Yes Status: Acute Code(s): J15.1 - PNEUMONIA DUE TO PSEUDOMONAS SNOMED Code(s): 19672476 Plan: 1patient presented to the hospital with increasing shortness of breath and cough with purulent sputum in this patient did have evidence of multifocal pneumonia secondary to Pseudomonas aeruginosa failing outpatient oral antibiotic therapy,patient with a history of bronchial asthma and history of recurrent pneumonia possible bronchiectasis responsible for these recurrent episodes of pneumonia. 2patient seemed to be clinically responding to cefepime 2 g every 8 hour, which will be continued, waiting for the PICC line placement and outpatient antibiotic arrangement for discharge Time with Patient: Less than 30
[2021-07-09] MEDS: CEFEPIME 2 GM in SODIUM CHLORIDE 0.9% 100 ML IVPB SCH ×3 (00:17→15:45)
[2021-07-09] MEDS: methylPREDNISolone SOD SUCCI 40 MG/ML 1 ML VIAL IV SCH ×3 (00:17→16:29)
[2021-07-09] MEDS: ACETAMINOPHEN TAB 325 MG TAB PO PRN (00:19)
[2021-07-09] MEDS: ALPRAZolam 0.5 MG TAB PO PRN (00:19)
--- NOTE | 2021-07-09 00:58 | P.PN ---
Subjective From records 65yo F with PMH of asthma and chronic cough, presents to the emergency department today via private vehicle and the advice of her events associate. Patient had bronchoscopy due to chronic cough, bronchoscopy yielded evidence of Pseudomonas pneumonia and she was advised to come to the hospital for IV antibiotics. Patient denies any fevers but reports she's had some chills and clamminess lately. She reports her aggressively worsening cough. Denies chest pain. Note that she has completed a course of Zithromax, Augmentin and Levaquin on outpatient basis given to her by her events associate and by her primary care physician. Pulmonary performed a bronchoscopy on this patient earlier this week. During the bronchoscopy, found significant tracheal bronchomalacia and there was significant amount of purulent respiratory secretions bilaterally. Bronchioloalveolar lavage was done and the cultures came back positive for pseudomonas aeruginosa. The patient accordingly was hospitalized as the patient was quite symptomatic, congested, bronchospastic and wheezy and she was not improving. She was hospitalized for IV antibiotic treatment. 07/07/21 Patient seen and evaluated. Complaining of heartburn Vital signs; temp 99.2, pulse 84, BP 115/73 Labs WBC 10.2, hGB 14.9, Na 138, Procal 0.03 Patient remains on IV cefepime, solu-medrol. Continue with bronchodilators therapy Pulmonary on board and considering possible repeat broncoscopy to follow up on bronchomalacia Subjective: Resuming with the care of the patient today 07/08/2021 Patient has been treated for recurrent bilateral Pseudomonas pneumonia, her respiratory symptoms improving and patient reports back to her baseline and she agrees she can go home today however she will need PICC line which is ordered today for IV antibiotics upon discharge as per ID team recommendation. Sputum culture came back gram-negative, final results pending. All questions answered to her satisfaction Possible discharge in 24-48 towards Currently she is on cefepime and Solu-Medrol 40 mg. Objective - Vital Signs Vital signs: Vital Signs Temp 98.2 F 07/08/21 14:40 Pulse 68 07/08/21 16:24 Resp 18 07/08/21 14:40 BP 174/84 07/08/21 14:40 Pulse Ox 92 L 07/08/21 14:40 Intake & Output 07/07/21 07/08/21 07/08/21 18:59 06:59 18:59 Intake Total 450 Output Total 650 Balance -200 Intake: Oral 450 Output: Urine 650 Other: Voiding Method Toilet Toilet Toilet # Voids 2 - Exam GENERAL: The patient is alert and oriented x3, not in any acute distress. Well developed, well nourished. HEENT: Pupils are round and equally reacting to light. EOMI. No scleral icterus. No conjunctival pallor. Normocephalic, atraumatic. No pharyngeal erythema. No thyromegaly. CARDIOVASCULAR: S1 and S2 present. No murmurs, rubs, or gallops. PULMONARY: Chest is clear to auscultation, no wheezing or crackles. ABDOMEN: Soft, nontender, nondistended, normoactive bowel sounds. No palpable organomegaly. MUSCULOSKELETAL: No joint swelling or deformity. EXTREMITIES: No cyanosis, clubbing, or pedal edema. NEUROLOGICAL: Gross neurological examination did not reveal any focal deficits. SKIN: No rashes. no petechiae. - Labs CBC & Chem 7: 07/07/21 05:16 07/07/21 05:16 Labs: Microbiology - Last 24 Hours (Table) 07/06/21 10:13 Gram Stain - Preliminary Sputum Sputum Culture - Preliminary Gram Neg Bacilli 07/05/21 15:40 Blood Culture - Preliminary Blood No Growth after 48 hours 07/05/21 16:00 Blood Culture - Preliminary Blood No Growth after 48 hours Assessment and Plan Assessment: 1. Pseudomonas pneumonia Patient will need PICC line. - Patient has been placed on cefepime 2 g IV every 12 hours Pulmonary and infectious disease team on the case 2. Tracheobronchomalacia; patient is status post bronchoscopy; pulmonary on board and anticipating another bronchoscopy pending course of hospitalization given significant amount of tracheobronchomalacia and purulent respiratory secretions Pulmonary team of the case 3. Severe persistent bronchial asthma; acute exacerbation; nebulizer treatments with Atrovent 4 times a day and when necessary; singular 10 mg daily; continue with home dose of theophylline; continue with Solu-Medrol 40 mg IV every 8 hours 4. Hypertension; Norvasc 10 mg daily; losartan 25 mg daily at bedtime 5. Anxiety; Xanax 0.5 mg daily when necessary DVT prophylaxis; SCDs CODE STATUS; full code
[2021-07-09] MEDS: IPRATROPIUM-ALBUTEROL 3 ML NEB INHALATION PRN ×3 (05:00→16:10)
[2021-07-09] MEDS: amLODIPine 10 MG TAB PO SCH (08:14)
[2021-07-09] MEDS: PANTOPRAZOLE 40 MG TABLET PO SCH ×2 (08:14→16:31)
[2021-07-09] MEDS: guaiFENesin 600 MG TABLET.ER PO SCH (08:15)
[2021-07-09] MEDS: THEOPHYLLINE 24 HOUR 300 MG CAP.ER.24H PO SCH (08:21)
[2021-07-09] MEDS: IPRATROPIUM 0.5 MG/2.5 ML NEBU INHALATION SCH ×3 (08:55→16:12)
--- NOTE | 2021-07-09 12:27 | P.PN ---
Subjective Progress Note Date: 07/09/21 Principal diagnosis: Shortness of breath, cough On 07/07/2021, the patient is being treated for multilobar pneumonia more so on the right. CAT scan of the chest was done yesterday and shows no clear indication for bronchiectasis. The patient has bronchial wall thickening and extensive consolidation of the right middle lobe area. This is attributed to pseudomonal pneumonia. The patient also has a low IgG level probably relatively immunosuppressed and IgE level is the 600s range and the patient has severe persistent bronchial asthma. Patient is currently on IV cefepime. The patient was also started on IV steroids. Less bronchospastic. Less wheezing compared to yesterday. No other new complaints otherwise for now. Her blood work shows a white cell count of 10.2 with a hemoglobin 14.9. The creatinine is 0.8 with a sodium level of 138 and the pro-calcitonin level was at 0.03. Serum IgG is at 646. On 07/08/2021 patient seen in follow-up on medical surgical floor, she is on room air, still coughing, but overall doing better. Room air pulse ox is 97%, she is afebrile, hemodynamically she is been stable. Her sputum culture is showing gram-negative bacilli, fungal culture is pending, blood cultures have been negative. Her BAL from the recent Bronch wash on all 07/02/2021 showed pseudomonas aeruginosa. Patient is currently on cefepime, she remains on nebulized bronchodilators, she remains on Mucinex and IV steroids. Clinically stable, improving On 07/09/2021 patient is seen in follow-up on medical surgical floor. She states her coughing is improving, still a bit wheezy, but overall doing better. Remains on room air pulse ox is 97%, afebrile, hemodynamically she is stable. Patient remains on cefepime, sputum culture showing gram-negative bacilli, blood cultures have been negative. No fever or chills, no chest pain, no hemoptysis. Patient has received a PICC line yesterday in the left upper arm. Afebrile. Pro-calcitonin level is negative at 0.03 Objective - Vital Signs Vital signs: Vital Signs Temp 98.0 F 07/09/21 07:09 Pulse 80 07/09/21 12:07 Resp 18 07/09/21 08:15 BP 154/56 07/09/21 07:09 Pulse Ox 97 07/09/21 08:57 Intake & Output 07/08/21 07/09/21 07/09/21 18:59 06:59 18:59 Intake Total 240 Balance 240 Intake: IV 240 Sodium Chloride 0.9% 1, 240 000 ml @ 20 mls/hr IV . Q24H [facility] Rx#:[id number] Other: Voiding Method Toilet Toilet Toilet # Voids 3 - Exam GENERAL EXAM: Alert, very pleasant, 65-year-old white female, on room air with a pulse ox of 97% comfortable in no apparent distress. HEAD: Normocephalic/atraumatic. EYES: Normal reaction of pupils, equal size. Conjunctiva pink, sclera white. NOSE: Clear with pink turbinates. THROAT: No erythema or exudates. NECK: No masses, no JVD, no thyroid enlargement, no adenopathy. CHEST: No chest wall deformity. Symmetrical expansion. LUNGS: Equal air entry with no crackles, wheeze, rhonchi or dullness. CVS: Regular rate and rhythm, normal S1 and S2, no gallops, no murmurs, no rubs ABDOMEN: Soft, nontender. No hepatosplenomegaly, normal bowel sounds, no guarding or rigidity. EXTREMITIES: No clubbing, no edema, no cyanosis, 2+ pulses and upper and lower extremities. MUSCULOSKELETAL: Muscle strength and tone normal. SPINE: No scoliosis or deformity SKIN: No rashes CENTRAL NERVOUS SYSTEM: Alert and oriented -3. No focal deficits, tone is normal in all 4 extremities. PSYCHIATRIC: Alert and oriented -3. Appropriate affect. Intact judgment and insight. - Labs CBC & Chem 7: 07/07/21 05:16 07/07/21 05:16 Labs: Microbiology - Last 24 Hours (Table) 07/05/21 16:00 Blood Culture - Preliminary Blood No Growth after 72 hours 07/05/21 15:40 Blood Culture - Preliminary Blood No Growth after 72 hours 07/06/21 10:13 Gram Stain - Preliminary Sputum Sputum Culture - Preliminary Gram Neg Bacilli Assessment and Plan Plan: Assessment: #1. Subacute/chronic pneumonia post-bronchoscopy, with sputum culture showing gram-negative bacilli. Recent bronchoscopy on 07/02/2021 showed pseudomonas aeruginosa. Patient has had similar infections years back, with hospitalization. Patient said failed outpatient treatment with multiple rounds of antibiotics. She continued to have ongoing symptoms of wheezing and cough. No indication of underlying bronchiectasis, patient had some low IgG level of 646 which is expected to be higher in the setting of an acute pneumonia. Computed tomography scan of the chest showing multilobar pneumonia more so in the right middle lobe area. Patient does have tracheobronchomalacia noted during bronchoscopic observation #2. Tracheobronchomalacia, observed on bronchoscopic evaluation on 07/02/2021 #3. Severe persistent bronchial asthma with secondary exacerbation #4. ALLERGIC rhinitis #5. Hypertension #6. I stressed right Plan: PICC line has been inserted Clinically patient is improving Vital signs have been stable On room air Tolerating ambulation Remains on cefepime Possible discharge home today if cleared by medicine Antibiotic course per ID service recommendations Patient will need to complete prednisone taper Patient needs a new nebulizer machine, which will be arranged Patient is supposed to get Trelegy inhaler, until then she can continue on Symbicort Continue albuterol nebulized treatments at home I have personally seen and examined the patient, performed the documentation and the assessment and plan as written. Number of minutes spent on the visit: 10 Time with Patient: Less than 30
--- NOTE | 2021-07-09 14:46 | P.PN ---
Subjective From records 65yo F with PMH of asthma and chronic cough, presents to the emergency department today via private vehicle and the advice of her residential supervisor. Patient had bronchoscopy due to chronic cough, bronchoscopy yielded evidence of Pseudomonas pneumonia and she was advised to come to the hospital for IV antibiotics. Patient denies any fevers but reports she's had some chills and clamminess lately. She reports her aggressively worsening cough. Denies chest pain. Note that she has completed a course of Zithromax, Augmentin and Levaquin on outpatient basis given to her by her residential supervisor and by her primary care physician. Pulmonary performed a bronchoscopy on this patient earlier this week. During the bronchoscopy, found significant tracheal bronchomalacia and there was significant amount of purulent respiratory secretions bilaterally. Bronchioloalveolar lavage was done and the cultures came back positive for pseudomonas aeruginosa. The patient accordingly was hospitalized as the patient was quite symptomatic, congested, bronchospastic and wheezy and she was not improving. She was hospitalized for IV antibiotic treatment. 07/07/21 Patient seen and evaluated. Complaining of heartburn Vital signs; temp 99.2, pulse 84, BP 115/73 Labs WBC 10.2, hGB 14.9, Na 138, Procal 0.03 Patient remains on IV cefepime, solu-medrol. Continue with bronchodilators therapy Pulmonary on board and considering possible repeat broncoscopy to follow up on bronchomalacia Subjective: Resuming with the care of the patient today 07/08/2021 Patient has been treated for recurrent bilateral Pseudomonas pneumonia, her respiratory symptoms improving and patient reports back to her baseline and she agrees she can go home today however she will need PICC line which is ordered today for IV antibiotics upon discharge as per ID team recommendation. Sputum culture came back gram-negative, final results pending. All questions answered to her satisfaction Possible discharge in 24-48 towards Currently she is on cefepime and Solu-Medrol 40 mg. 07/10/2011 Patient is back to her baseline or close to her baseline, she is breathing frederick etly and on room air. She is doing well on IV antibiotic and steroids, patient actually is been cleared by pulmonary service for discharge today from their perspective. As well as infectious disease I spoke with Dr. Arcos patient can be discharged on IV antibiotics. PICC line has been placed. Pending prior authorization for her antibiotics coverage upon discharge. Other than that she is medically stable for discharge Mobilize her machine is provided by immigration case worker. Tapered steroids prescription is provided for the patient upon discharge as well as Prilosec and Mucinex upon her request. She does not need any other prescription. Possible discharge today or tomorrow once antibiotic authorization is obtained. Objective - Vital Signs Vital signs: Vital Signs Temp 98.0 F 07/09/21 07:09 Pulse 71 07/09/21 09:08 Resp 18 07/09/21 08:15 BP 154/56 07/09/21 07:09 Pulse Ox 97 07/09/21 08:57 Intake & Output 07/08/21 07/09/21 07/09/21 18:59 06:59 18:59 Intake Total 240 Balance 240 Intake: IV 240 Sodium Chloride 0.9% 1, 240 000 ml @ 20 mls/hr IV . Q24H [facility] Rx#:[id number] Other: Voiding Method Toilet Toilet Toilet # Voids 3 - Exam GENERAL: The patient is alert and oriented x3, not in any acute distress. Well developed, well nourished. HEENT: Pupils are round and equally reacting to light. EOMI. No scleral icterus. No conjunctival pallor. Normocephalic, atraumatic. No pharyngeal erythema. No thyromegaly. CARDIOVASCULAR: S1 and S2 present. No murmurs, rubs, or gallops. PULMONARY: Chest is clear to auscultation, no wheezing or crackles. ABDOMEN: Soft, nontender, nondistended, normoactive bowel sounds. No palpable organomegaly. MUSCULOSKELETAL: No joint swelling or deformity. EXTREMITIES: No cyanosis, clubbing, or pedal edema. NEUROLOGICAL: Gross neurological examination did not reveal any focal deficits. SKIN: No rashes. no petechiae. - Labs CBC & Chem 7: 07/07/21 05:16 07/07/21 05:16 Labs: Microbiology - Last 24 Hours (Table) 07/05/21 16:00 Blood Culture - Preliminary Blood No Growth after 72 hours 07/05/21 15:40 Blood Culture - Preliminary Blood No Growth after 72 hours 07/06/21 10:13 Gram Stain - Preliminary Sputum Sputum Culture - Preliminary Gram Neg Bacilli Assessment and Plan Assessment: 1. Pseudomonas pneumonia Patient will need status post PICC line placement Patient has been placed on cefepime 2 g IV every 12 hours Pulmonary and infectious disease team on the case and both cleared her for discharge. Pending insurance authorization for her antibiotics 2. Tracheobronchomalacia; patient is status post bronchoscopy; pulmonary on board and anticipating another bronchoscopy pending course of hospitalization given significant amount of tracheobronchomalacia and purulent respiratory secretions Pulmonary team of the case 3. Severe persistent bronchial asthma; acute exacerbation; nebulizer treatments with Atrovent 4 times a day and when necessary; singular 10 mg daily; continue with home dose of theophylline; continue with Solu-Medrol 40 mg IV every 8 hours 4. Hypertension; Norvasc 10 mg daily; losartan 25 mg daily at bedtime 5. Anxiety; Xanax 0.5 mg daily when necessary DVT prophylaxis; SCDs CODE STATUS; full code Possible discharge today or tomorrow once antibiotic authorization is obtained.
[2021-07-09 15:08] VITALS: BP 146/77; TEMP 98.5
[2021-07-09 16:13] VITALS: PULSE 86
[2021-07-09] MEDS: SODIUM CHLORIDE 0.9% 1,000 ML IV SCH (17:30)
== END 2021-07-09 17:40 | disposition home health service (06) | DRG 178 ==
LOC: EC 14:29 → 4SSUR 16:28
PROVIDERS: ADMIT Internal Medicine; ATTEND Internal Medicine
PROC: 02HV33Z Insertion of Infusion Device into Superior Vena Cava, Percutaneous Approach (ICD-10-PCS; principal; 2021-07-08 15:05)
DX: J15.1 Pneumonia due to Pseudomonas (principal); J45.901 Unspecified asthma with (acute) exacerbation; D84.9 Immunodeficiency, unspecified; J45.51 Severe persistent asthma with (acute) exacerbation; J98.09 Other diseases of bronchus, not elsewhere classified; F32.A Depression, unspecified; F41.9 Anxiety disorder, unspecified; I10 Essential (primary) hypertension; E55.9 Vitamin D deficiency, unspecified; Z79.2 Long term (current) use of antibiotics; G47.30 Sleep apnea, unspecified; Z79.899 Other long term (current) drug therapy; I44.7 Left bundle-branch block, unspecified; Z87.01 Personal history of pneumonia (recurrent); Z90.710 Acquired absence of both cervix and uterus; Z96.653 Presence of artificial knee joint, bilateral; Z88.2 Allergy status to sulfonamides; Z83.2 Family history of diseases of the blood and blood-forming organs and certain disorders involving the immune mechanism; J31.0 Chronic rhinitis; Z90.89 Acquired absence of other organs; Z98.890 Other specified postprocedural states; Z77.22 Contact with and (suspected) exposure to environmental tobacco smoke (acute) (chronic)
CPT/HCPCS: 36415; 36573; 71045; 71250; 80048; 80053; 81001; 82784; 83605; 84145; 85025; 86140; 87040; 87070; 87077; 87186; 87205; 93005; 94640; 94760; 96365; 96367; 99285

== ENCOUNTER → 2021-09-03 | Outpatient (CLI) | payer BC | END | disposition home or self-care (01) | LOC: LABWHC1 11:35 | PROVIDERS: ATTEND Internal Medicine Critical Care Medicine | DX: J45.51 Severe persistent asthma with (acute) exacerbation (principal) | CPT/HCPCS: 87070; 87077; 87186; 87205 ==

== ENCOUNTER → 2021-11-19 | Outpatient (CLI) | payer BC ==
--- NOTE | 2021-11-20 08:08 | XR ---
EXAM TYPE: LUMBAR SPINE X RAY SERIES COMPARISON: NONE HISTORY: Pain TECHNIQUE: 3 views submitted views are submitted. FINDINGS: Alignment is anatomic. The pedicles are intact. The transverse processes are intact. Surgical clip s in the right upper quadrant. Multilevel moderate to severe degenerative disc disease most marked at levels L3-4 and L5-S1. Facet arthropathy L4-5 and L5-S1 with grade 1 anterolisthesis L4 on L5. IMPRESSION: 1. Multilevel moderate to severe degenerative disc disease with facet arthropathy and grade 1 anterol isthesis L4 on L5. Suspect multilevel foraminal encroachment recommend MRI.
== END | disposition home or self-care (01) ==
LOC: RADXRMAIN 16:36
PROVIDERS: ATTEND Family Medicine
DX: M54.50 Low back pain, unspecified (principal)
CPT/HCPCS: 72100

== ENCOUNTER → 2022-09-24 | Outpatient (CLI) | payer BC ==
--- NOTE | 2022-09-25 20:58 | MM ---
Reason for Exam: Screening (asymptomatic). Last screening mammogram was performed 12 month(s) ago. Patient History: Menarche at age 18. First Full-Term at age 27. Hysterectomy at age 42. Postmenopausal. Patient has history of breast feeding. Currently using Progesterone, beginning at age 62 for 3 years. Sister had breast cancer, age 62. Risk Values: Latonya 5 year model risk: 2.9%. NCI Lifetime model risk: 11.3%. Prior Study Comparison: 06/03/2019 Bilateral Screening Mammogram, [facility]. 08/16/2020 Bilateral Screening Mammogram, [facility]. 09/23/2021 Bilateral MG 3D screening mammo w/cad, [facility]. Tissue Density: The breast tissue is heterogeneously dense. This may lower the sensitivity of mammography. Findings: Analyzed By CAD. There is no suspicious group of microcalcifications or new suspicious mass in either breast. Overall Assessment: Negative, BI-RAD 1 Management: Screening Mammogram of both breasts in 1 year. . Patient should continue monthly self-breast exams. A clinical breast exam by your physician is recommended on an annual basis. This exam should not preclude additional follow-up of suspicious palpable abnormalities. Note on Latonya scores and lifetime risk: 1. A Latonya score greater than 3% is considered moderate risk. If this is the case, consider specialist referral to assess eligibility for a risk reducing agent. 2. If overall lifetime risk for the development of breast cancer is 20% or higher, the patient may qualify for future screening with alternating mammogram and breast MRI. Electronically signed and approved by: Marzena Duran M.D. Radiologist
== END | disposition home or self-care (01) ==
LOC: RADMAMWWP 14:54
PROVIDERS: ATTEND Obstetrics & Gynecology
DX: Z12.31 Encounter for screening mammogram for malignant neoplasm of breast (principal); Z78.0 Asymptomatic menopausal state; Z80.3 Family history of malignant neoplasm of breast
CPT/HCPCS: 77063; 77067

== ENCOUNTER → 2022-10-21 | Outpatient (CLI) | payer MEDICARE ==
--- NOTE | 2022-10-21 12:01 | XR ---
EXAMINATION TYPE: XR wrist complete RT DATE OF EXAM: 10/21/2022 COMPARISON: NONE HISTORY: Pain TECHNIQUE: Four views submitted. FINDINGS: The osseous structures are intact. Mild first carpometacarpal joint arthropathy. There is no acute fr acture or dislocation. IMPRESSION: 1. No definite acute fracture or dislocation if symptoms persist, follow-up study in 7 to 10 days wo uld be suggested
== END | disposition home or self-care (01) ==
LOC: RADXRMAIN 11:34
PROVIDERS: ATTEND Family Medicine
DX: M67.833 Other specified disorders of tendon, right wrist (principal)

== ENCOUNTER → 2023-08-13 | Outpatient (CLI) | payer MEDICARE ==
--- NOTE | 2023-08-13 11:08 | BD ---
EXAMINATION TYPE: Axial Bone Density DATE OF EXAM: 08/13/2023 CLINICAL HISTORY: 67 years old Female. ICD-10 CODE: M85.80 OTHER DISORDER OF BONE DENSITY Height: 63 Weight: 153.7 FRAX RISK QUESTIONS: Alcohol (3 or more units per day): no Family History (Parent hip fracture): no Glucocorticoids (More than 3mos): no (Ex: prednisone, prednisolone, methylprednisolone, dexamethasone, and hydrocortisone). History of Fracture in Adulthood: yes Secondary Osteoporosis: 1. Type 1 Diabetes: no 2. Hyperthyroidism: no 3. Menopause before 45: yes 4. Malnutrition: no 5. Chronic liver disease: no Rheumatoid Arthritis: no Current Tobacco Use: no RISK FACTORS HISTORY OF: History of Wrist Fracture: left wrist When: after age 52 Surgery to Spine/Hip(right/left)/Wrist (right/left): no EXAM MEASUREMENTS: Bone mineral densitometry was performed using the CPXi System. Bone mineral density as measured about the Lumbar spine is: ----- L1-L4(G/cm2): 0.949 T Score Values are as follows: ----- L1: -2.9 ----- L2: -3.5 ----- L3: -1.6 ----- L4: -0.5 ----- L1-L4: -0.5 Z Score Values are as follows: ----- L1: -1.4 ----- L2: -2.0 ----- L3: -0.2 ----- L4: 0.9 ----- L1-L4: -0.5 Bone mineral density: baseline Bone mineral density about the R hip (g/cm2): 0.897 Bone mineral density about the L hip (g/cm2): 0.906 T Score values are as follows: -----R Neck: -1.0 -----L Neck: -1.2 -----R Total: -0.9 -----L Total: -0.8 Z Score values are as follows: -----R Neck: 0.4 -----L Neck: 0.2 -----R Total: 0.2 -----L Total: 0.3 Bone mineral density baseline: FRAX%s: The graph provided illustrates a 13.8% chance for a major osteoporotic fx and a 1.2% chance f or the hips probability for fx in 10 years time. IMPRESSION: Normal (Values between +1 and -1 indicate normal bone mass). Consider repeating this study in 5 year s or sooner if there is some new clinical indication. NOTE: T-SCORE=SD OF THE YOUNG ADULT MEAN.
== END | disposition home or self-care (01) ==
LOC: RADBDWWP 09:14
PROVIDERS: ATTEND Family Medicine
DX: M85.89 Other specified disorders of bone density and structure, multiple sites (principal); M81.0 Age-related osteoporosis without current pathological fracture; Z78.0 Asymptomatic menopausal state
CPT/HCPCS: 77080

== ENCOUNTER → 2023-10-19 | Outpatient (CLI) | payer MEDICARE ==
--- NOTE | 2023-10-20 16:26 | MM ---
Reason for Exam: Screening (asymptomatic). Last mammogram was performed 1 year(s) and 1 month(s) ago. Patient History: Menarche at age 18. First Full-Term at age 27. Hysterectomy at age 42. Postmenopausal. Currently using Unspecified Hormone, starting at age 62. Currently using Estrogen and Progesterone, beginning at age 62 for 3 years. Paternal cousin had breast cancer under age 50. Sister had breast cancer, age 62. Risk Values: Latonya 5 year model risk: 3.0%. NCI Lifetime model risk: 10.6%. Prior Study Comparison: 11/13/2016 Bilateral Screening Mammogram, [facility]. 11/30/2017 Bilateral Screening Mammogram, [facility]. 06/03/2019 Bilateral Screening Mammogram, [facility]. 08/16/2020 Bilateral Screening Mammogram, [facility]. 09/23/2021 Bilateral MG 3D screening mammo w/cad, [facility]. 09/24/2022 Bilateral MG 3D screening mammo w/cad, [facility]. Tissue Density: The breasts are heterogeneously dense, which may obscure small masses. Findings: Analyzed By CAD. The pattern is symmetrical. Pattern appears stable. Benign vascular calcifications present bilaterally. No suspicious groups of microcalcifications, spiculated or lobular masses, architectural distortion or other secondary signs of malignancy are mammographically apparent. Overall Assessment: Benign, BI-RAD 2 Management: Screening Mammogram of both breasts in 1 year. A negative mammogram report should not preclude additional follow up of suspicious palpable abnormalities. Patient should continue monthly self breast exam. A clinical breast exam by your physician is recommended on an annual basis and results should be correlated with mammographic findings. Note on Latonya scores and lifetime risk: 1. A Latonya score greater than 3% is considered moderate risk. If this is the case, consider specialist referral to assess eligibility for a risk reducing agent. 2. If overall lifetime risk for the development of breast cancer is 20% or higher, the patient may qualify for future screening with alternating mammogram and breast MRI. Electronically signed and approved by: Rajat Leung D.O. Radiologis
== END | disposition home or self-care (01) ==
LOC: RADMAMWWP 11:56
PROVIDERS: ATTEND Obstetrics & Gynecology
DX: Z12.31 Encounter for screening mammogram for malignant neoplasm of breast (principal); Z78.0 Asymptomatic menopausal state; Z80.3 Family history of malignant neoplasm of breast
CPT/HCPCS: 77063; 77067

== ENCOUNTER 2023-12-15 07:30 | Day surgery (SDC) | payer MEDICARE ==
[2023-12-15] MEDS ORDERED: PROPOFOL 10 MG/ML 20 ML VIAL IV ONE (08:58)
[2023-12-15] MEDS ORDERED: GLYCOPYRROLATE 0.2 MG/ML 2 ML VIAL ONE (08:58)
--- NOTE | 2023-12-25 15:53 | PCN ---
PROCEDURE NOTE REQUESTING PHYSICIAN: Dr. Víctor Pacheco. BRIEF HISTORY: The patient is a 68-year-old pleasant white female scheduled for elective colonoscopy as a part of screening for colorectal neoplasia. PROCEDURE PERFORMED: Colonoscopy with snare polypectomy. PREOPERATIVE DIAGNOSIS: Screening for colon cancer. ANESTHESIA: IV sedation per Anesthesia. DESCRIPTION OF PROCEDURE: After informed consent was obtained from the patient, she was brought into the endoscopy unit. IV conscious sedation was administered by Anesthesia under continuous monitoring. Initial digital rectal examination was normal. The Olympus CF-190 video colonoscope was entered into the rectum, gradually advanced into the cecum. Careful examination was performed as the scope was gradually being withdrawn. The ileocecal valve and appendiceal orifice were visualized and appeared normal. The prep was excellent. Mucosa of the cecum, ascending colon appeared normal. In the hepatic flexure, there was a 7 mm polyp that was removed by cold snare polypectomy. The transverse colon, descending colon, sigmoid colon, and rectum appeared normal. There were scattered sigmoid diverticulosis seen. In the rectum, retroflexion was performed. No lesions were noted and the patient tolerated the procedure well. IMPRESSION: 1. 7 mm hepatic flexure polyp, status post cold snare polypectomy. 2. Scattered sigmoid diverticulosis. RECOMMENDATIONS: Findings of this examination were discussed with the patient as well as the family. She was advised to follow up with the biopsy results and if the biopsy reveals adenoma, recommend a repeat colonoscopy in 5 years. MMODL / IJN: [id number] /
== END 2023-12-15 09:52 ==
LOC: ORWHC2ENDO 07:30
PROVIDERS: ATTEND Internal Medicine Gastroenterology
DX: Z12.11 Encounter for screening for malignant neoplasm of colon (principal); D12.3 Benign neoplasm of transverse colon; K57.30 Diverticulosis of large intestine without perforation or abscess without bleeding; I10 Essential (primary) hypertension; J45.909 Unspecified asthma, uncomplicated; H40.9 Unspecified glaucoma; Z79.899 Other long term (current) drug therapy; Z79.02 Long term (current) use of antithrombotics/antiplatelets; Z88.2 Allergy status to sulfonamides
CPT/HCPCS: 45385; 88305

== ENCOUNTER → 2024-05-11 | Outpatient (CLI) | payer MEDICARE ==
--- NOTE | 2024-05-11 09:52 | MM ---
Reason for Exam: Clinical finding. Last screening mammogram was performed 7 month(s) ago. Patient History: Menarche at age 18. First Full-Term at age 27. Hysterectomy at age 42. Postmenopausal. Currently using Unspecified Hormone, starting at age 62. Currently using Estrogen and Progesterone, beginning at age 62 for 3 years. Paternal cousin had breast cancer under age 50. Sister had breast cancer, age 62. Risk Values: Latonya 5 year model risk: 3.0%. NCI Lifetime model risk: 10.6%. Prior Study Comparison: 09/23/2021 Bilateral MG 3D screening mammo w/cad, [facility]. 09/24/2022 Bilateral MG 3D screening mammo w/cad, [facility]. 10/19/2023 Bilateral MG 3D screening mammo w/cad, [facility]. Tissue Density: Left: The breasts are heterogeneously dense, which may obscure small masses. Findings: Analyzed By CAD. No suspicious mass in the area of abnormality in the skin. No new suspicious masses, calcifications or distortions. Overall Assessment: Negative, BI-RAD 1 Management: Screening Mammogram of both breasts in 1 year. Results were given to the patient verbally at the time of exam. Patient should continue monthly self-breast exams. A clinical breast exam by your physician is recommended on an annual basis. This exam should not preclude additional follow-up of suspicious palpable abnormalities. Note on Latonya scores and lifetime risk: 1. A Latonya score greater than 3% is considered moderate risk. If this is the case, consider specialist referral to assess eligibility for a risk reducing agent. 2. If overall lifetime risk for the development of breast cancer is 20% or higher, the patient may qualify for future screening with alternating mammogram and breast MRI. [facility], , 05/11/2024 9:41 AM. Electronically signed and approved by: Rubin Sherman DO
== END | disposition home or self-care (01) ==
LOC: RADMAMWWP 08:58
PROVIDERS: ATTEND Family Medicine
DX: R21 Rash and other nonspecific skin eruption (principal); R92.8 Other abnormal and inconclusive findings on diagnostic imaging of breast; R92.333 Mammographic heterogeneous density, bilateral breasts; Z78.0 Asymptomatic menopausal state; Z80.3 Family history of malignant neoplasm of breast
CPT/HCPCS: 77065; G0279; 77061

== ENCOUNTER → 2024-06-30 | Outpatient (CLI) | payer MEDICARE ==
[2024-06-30 13:17] VITALS: BP 121/78; PULSE 77; RESP 17; TEMP 98.1
--- NOTE | 2024-06-30 13:55 | P.GSCN ---
History of Present Illness Consult date: 06/30/24 Reason for Consult: skin change of breast Requesting physician: Víctor Pacheco History of present illness: Evelyn is a 68 year old female seen in consultation for Dr. Pacheco regarding purple discoloration of the left breast which has resolved. She had a bilateral mammogram on 10-19-23 which was BIRAD 2, and a repeat left breast mammogram on 05-11-24 which was BIRAD 1. This was personally interpreted. She is not complaining of any lumps masses or nodules of concern in either breast. The rash has subsequently resolved. She has not complained of any nipple discharge or skin changes.She is not complaining of any recent trauma or infection in the breast. She has been treated with prednisone for her asthma since the rash started and this may have helped to resolve the rash. caffeine: 1 cup coffee/day nicotine: none chocolate: occasional BCP: used for about 12 years hormone pellet therapy testosterone, estradiol/ progesterone she has been on this for about 3 years; Dr. Rodriguez note Dr. Pacheco 04-07-24 reviewed Family History: sister: breast cancer doing well paternal grandfather: liver cnacer cousin paternal breat cancer Hormonal History: menarche: 18 , breast fed: no age at first : 27 menopause: 52; hysterectomy but left ovaries no cancer fibroids Surgical History: hysterectomy two total knees left wrist septum nasal tonsil and adenoids [facility] Medical History: asthma HTN left [facility] Social HIstory: nicotine: none alcohol: occasional drugs: none Review of Systems - Constitutional Denies fever, Denies weight loss - EENT EENT Comment(s): 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 Eyes: denies blurred vision Ears: deny: decreased hearing, tinnitus Ears, nose, mouth and throat: Denies dysphagia - Breasts bilateral: as per HPI - Cardiovascular Reports shortness of breath, Denies chest pain - Respiratory Respiratory Comment(s): asthma - Gastrointestinal Reports as per HPI, Reports constipation - Genitourinary Genitourinary: Denies dysuria, Denies hematuria Menstruation: Reports post hysterectomy - Musculoskeletal Reports as per HPI - Integumentary Reports as per HPI - Neurological Denies headaches, Denies syncope - Psychiatric Reports depression - Endocrine Endocrine Comment(s): on prednisone Reports weight change - Hematologic/Lymphatic Denies easy bleeding, Denies easy bruising - Allergic/Immunologic Reports as per HPI, Reports seasonal allergies Past Medical History Past Medical History: Asthma, Hypertension, Osteoarthritis (OA), Pneumonia, Skin Disorder, Sleep Apnea/CPAP/BIPAP, Supraventricular Tachycardia (SVT) Additional Past Medical History / Comment(s): Left BBB History of Any Multi-Drug Resistant Organisms: None Reported Past Surgical History: Adenoidectomy, Cholecystectomy, Hysterectomy, Joint Replacement, Orthopedic Surgery, Tonsillectomy Additional Past Surgical History / Comment(s): Bronchoscopy, rhinoplasty/deviated septum, right knee arthroscopy, bilateral knee replacements, vein stripping, left wrist surgery, A&P repair. Past Anesthesia/Blood Transfusion Reactions: Motion Sickness, Postoperative Nausea & Vomiting (PONV) Past Psychological History: Anxiety, Depression Additional Psychological History / Comment(s): Hx of, no treatment now. Smoking Status: Second hand smoke exposure, Never smoker Past Alcohol Use History: Occasional Past Drug Use History: None Reported Additional Drug Use History / Comment(s): Tried CBD oil but not using currently. - Past Family History Father Family Medical History: Deep Vein Thrombosis (DVT) Medications and Allergies Home Medications Medication Instructions Recorded Confirmed Type Albuterol Sulfate [Proventil Hfa] 2 puff INHALATION RT-Q6H PRN 09/08/13 06/30/24 History Montelukast [Singulair] 10 mg PO HS 09/08/13 06/30/24 History Progesterone, Micronized 100 mg PO HS 09/21/17 06/30/24 History [Progesterone] Theophylline 12 Hour [Migue-Dur] 300 mg PO BID 06/14/18 06/30/24 History ALPRAZolam [Xanax] 0.5 mg PO DAILY PRN 07/01/21 06/30/24 History Ipratropium-Albuterol Nebulize 3 ml INHALATION RT-Q6H PRN 07/01/21 06/30/24 History [Duoneb 0.5 mg-3 mg/3 ml Soln] Fluticasone/Umeclidin/Vilanter 1 puff INHALATION RT-DAILY 07/05/21 06/30/24 History [Trelegy Ellipta 100-62.5-25] Acetaminophen Tab [Tylenol] 650 mg PO Q6HR PRN tab 07/09/21 06/30/24 Rx Omeprazole [PriLOSEC] 20 mg PO AC-BID #60 cap 07/09/21 06/30/24 Rx guaiFENesin [Mucinex] 600 mg PO BID 10 Days #20 tab 07/09/21 06/30/24 Rx Albuterol Sulfate [Albuterol 2 puff PO RT-QID PRN 05/27/24 06/30/24 History Sulfate Hfa] Budesonide/Formoterol Fumarate 2 puff PO RT-BID 05/27/24 06/30/24 History [Budesonide-Formoterol 160-4.5] Latanoprost [Latanoprost 0.005%] 1 drop BOTH EYES HS 05/27/24 06/30/24 History Levofloxacin [Levaquin] 750 mg PO DAILY 10 Days #10 tab 05/27/24 06/30/24 Rx Losartan [Cozaar] 50 mg PO HS 05/27/24 06/30/24 History Umeclidinium [place] [Incruse 1 puff INHALATION RT-DAILY 05/27/24 06/30/24 History Ellipta] amLODIPine [Norvasc] 10 mg PO DAILY 05/27/24 06/30/24 History hydroCHLOROthiazide [Hydrodiuril] 25 mg PO DAILY 05/27/24 06/30/24 History Allergies Allergy/AdvReac Type Severity Reaction Status Date / Time Sulfa (Sulfonamide Allergy Rash/Hives Verified 06/30/24 13:13 Antibiotics) sulfamethoxazole Allergy Rash/Hives Verified 06/30/24 13:13 [From Bactrim] trimethoprim [From Bactrim] Allergy Rash/Hives/ Verified 06/30/24 13:13 fever/aches Surgical - Exam Vital Signs Temp Pulse Resp BP Pulse Ox 98.1 F 77 17 121/78 95 06/30/24 13:15 06/30/24 13:15 06/30/24 13:15 06/30/24 13:15 06/30/24 13:15 - General no distress - Eyes normal ocular movement - Neck trachea midline - Respiratory normal respiratory effort, clear to auscultation - Cardiovascular Rhythm: regular Heart Sounds: normal: S1, S2 - Abdomen Abdomen: soft, non tender, no guarding, no rigid, no rebound - Integumentary normal turgor - Neurologic no disoriented, no combative - Musculoskeletal normal gait - Psychiatric oriented to time, oriented to person, oriented to place, speech is normal, memory intact Breast Exam: BRA: 38B Inspection:bilateral grade 2 ptosis Palpation: Right breast: Multi positional exam fibrocystic changes, appears to have a fungal infection under the right breast Right axilla: No adenopathy of concern Left breast: Multi positional exam fibrocystic changes, no dominant masses or nodules of concern, no skin changes of concern Left axilla: Shotty adenopathy nonworrisome Examination of the integument reveals some patchy areas of erythema which may be related to an allergy him would recommend that she follow with her primary care doctor or dermatology regarding these there is nothing of concern within the breast on examination Results Mammogram of bilateral breast and then left breast personally reviewed Assessment and Plan Assessment: Impression: Fibrocystic breast changes Family history of breast cancer Rash left breast resolved Fungal infection under right breast Plan: Nystatin under right breast Consider dermatology appointment versus follow-up with primary care doctor regarding rash Follow-up bilateral mammogram in October 2024 with appointment at that time CC: DR. Pacheco
== END ==
LOC: WWCWWP 12:50
PROVIDERS: ATTEND Surgery
DX: N60.19 Diffuse cystic mastopathy of unspecified breast (principal); B37.89 Other sites of candidiasis; Z80.3 Family history of malignant neoplasm of breast; Z88.2 Allergy status to sulfonamides

== ENCOUNTER → 2024-10-07 | Outpatient (CLI) | payer MEDICARE ==
--- NOTE | 2024-10-07 09:35 | US ---
EXAMINATION TYPE: US abdomen limited DATE OF EXAM: 10/07/2024 COMPARISON: Ultrasound abdomen 2017 renal ultrasound 2019. CLINICAL INDICATION: Female, 68 years old with history of R19.00 INTRAABDOMINAL AND PELVIC SWELLING; palpable area rt flank x 6 weeks, tenderness TECHNIQUE: several images taken at area of concern No mass or hernia noted. Palpable area likely corresponds to 8.2x7.8x8.9cm inferior pole renal cyst w ith a small septation and compression of the IVC posteriorly This area previously measured 6.4x6.7x6.0cm on US 02/16/19 FINDINGS: IMPRESSION: A Bosniak 2F cyst with local mass effect from the lower pole right kidney is redemonstra salvador. It is slow growing in size. [facility], , 10/07/2024 9:33 AM
== END | disposition home or self-care (01) ==
LOC: RADUSWWP 08:51
PROVIDERS: ATTEND Family Medicine
DX: N28.1 Cyst of kidney, acquired (principal)
CPT/HCPCS: 76705

== ENCOUNTER → 2024-10-20 | Outpatient (CLI) | payer MEDICARE ==
--- NOTE | 2024-10-20 14:26 | MM ---
Reason for Exam: Screening (asymptomatic). Last screening mammogram was performed 12 month(s) ago. Patient History: Menarche at age 18. First Full-Term at age 27. Hysterectomy at age 42. Postmenopausal. Currently using Unspecified Hormone, starting at age 62. Currently using Estrogen and Progesterone, beginning at age 62 for 3 years. Paternal cousin had breast cancer under age 50. Sister had breast cancer, age 62. Risk Values: Latonya 5 year model risk: 3.0%. NCI Lifetime model risk: 10.2%. Prior Study Comparison: 09/24/2022 Bilateral MG 3D screening mammo w/cad, [facility]. 10/19/2023 Bilateral MG 3D screening mammo w/cad, [facility]. 05/11/2024 Left MG 3D diag mammo w/cad , [facility]. Tissue Density: The breasts are heterogeneously dense, which may obscure small masses. Findings: Analyzed By CAD. Benign bilateral vascular calcifications. There is no suspicious group of microcalcifications or new suspicious mass in either breast. Overall Assessment: Negative, BI-RAD 1 Management: Screening Mammogram of both breasts in 1 year. See note below in regards to the patient's increased 5 year Latonya score. Patient should continue monthly self-breast exams. A clinical breast exam by your physician is recommended on an annual basis. This exam should not preclude additional follow-up of suspicious palpable abnormalities. Note on Latonya scores and lifetime risk: 1. A Latonya score greater than 3% is considered moderate risk. If this is the case, consider specialist referral to assess eligibility for a risk reducing agent. 2. If overall lifetime risk for the development of breast cancer is 20% or higher, the patient may qualify for future screening with alternating mammogram and breast MRI. [facility], , 10/20/2024 2:23 PM. Electronically signed and approved by: Marzena Duran M.D. Radiologist
== END | disposition home or self-care (01) ==
LOC: RADMAMWWP 09:37
PROVIDERS: ATTEND Surgery
DX: Z12.31 Encounter for screening mammogram for malignant neoplasm of breast (principal); R92.333 Mammographic heterogeneous density, bilateral breasts; Z78.0 Asymptomatic menopausal state; Z80.3 Family history of malignant neoplasm of breast; Z92.0 Personal history of contraception
CPT/HCPCS: 77063; 77067

== ENCOUNTER 2024-10-26 15:30 | Inpatient (IN) | payer MEDICARE ==
--- NOTE | 2024-10-26 16:16 | ED ---
General Adult HPI - General Source: patient, RN notes reviewed Mode of arrival: ambulatory Limitations: no limitations <Alicia Espino - Last Filed: 10/26/24 16:14> - General Source: patient, RN notes reviewed, old records reviewed Mode of arrival: ambulatory Limitations: no limitations - History of Present Illness -: days(s) Location: chest Radiation: non-radiation Quality: aching Consistency: constant Improves with: none Worsens with: none Associated Symptoms: cough, shortness of breath Treatments Prior to Arrival: none <Caleb Jay - Last Filed: 11/01/24 19:56> - General Chief complaint: Shortness of Breath Stated complaint: LIANNA, Afib Time Seen by Provider: 10/26/24 15:46 - History of Present Illness Initial comments: Quick [id number] female history of A-fib on Eliquis presenting to emergency room for complaints of difficulty breathing, lightheadedness, intermittent chest pain. She also has a history of asthma and feels like this may be exacerbating her symptoms. (Alicia Espino) This is 69-year-old female with recent history of A-fib new onset atrial fibrillation she is on Eliquis complaining of shortness of breath severe shortness of breath here in the ER occasional chest pain. Patient is concerned that this is worsening asthma exacerbation she cannot take a deep breath with severe wheezing. No recent fevers, increased cough and congestion (Caleb Jay) - Related Data Home Medications Medication Instructions Recorded Confirmed Albuterol Sulfate [Proventil Hfa] 2 puff INHALATION RT-Q6H PRN 09/08/13 10/27/24 Montelukast [Singulair] 10 mg PO HS 09/08/13 10/27/24 Progesterone, Micronized 100 mg PO HS 09/21/17 10/27/24 [Progesterone] ALPRAZolam [Xanax] 0.5 mg PO DAILY PRN 07/01/21 10/27/24 Latanoprost [Latanoprost 0.005%] 1 drop BOTH EYES HS 05/27/24 10/27/24 Losartan [Cozaar] 50 mg PO HS 05/27/24 10/27/24 amLODIPine [Norvasc] 10 mg PO DAILY 05/27/24 10/27/24 Albuterol Sulfate/Budesonide 2 puff INHALATION RT-Q4H PRN 10/27/24 10/27/24 [Airsupra 90-80 Mcg Inhaler] Apixaban [Eliquis] 5 mg PO BID 10/27/24 10/27/24 Cetirizine HCl [Zyrtec] 10 mg PO DAILY 10/27/24 10/27/24 Fluticasone/Umeclidin/Vilanter 1 puff INHALATION RT-DAILY 10/27/24 10/27/24 [Trelegy Ellipta 200-62.5-25] Tezepelumab-Ekko [Tezspire] 210 mg SQ Q28D 10/27/24 10/27/24 dilTIAZem HCL [dilTIAZem HCL 24Hr 120 mg PO HS 10/27/24 10/27/24 ER (CD)] metFORMIN HCL [Glucophage] 850 mg PO BID 10/27/24 10/27/24 Previous Rx's Medication Instructions Recorded guaiFENesin [Mucinex] 600 mg PO BID 10 Days #20 tab 07/09/21 Allergies Allergy/AdvReac Type Severity Reaction Status Date / Time hydrochlorothiazide Allergy Rash/Hives Verified 10/27/24 12:09 Sulfa (Sulfonamide Allergy Rash/Hives Verified 10/27/24 12:09 Antibiotics) sulfamethoxazole Allergy Rash/Hives Verified 10/27/24 12:09 [From Bactrim] trimethoprim [From Bactrim] Allergy Rash/Hives/ Verified 10/27/24 12:09 fever/aches Review of Systems ROS Other: All systems not noted in ROS Statement are negative. <Alicia Espino - Last Filed: 10/26/24 16:14> ROS Other: All systems not noted in ROS Statement are negative. <Caleb Jay - Last Filed: 11/01/24 19:56> ROS Statement: Those systems with pertinent positive or pertinent negative responses have been documented in the HPI. Past Medical History Past Medical History: Asthma, Hypertension, Osteoarthritis (OA), Pneumonia, Skin Disorder, Sleep Apnea/CPAP/BIPAP, Supraventricular Tachycardia (SVT) Additional Past Medical History / Comment(s): Left BBB History of Any Multi-Drug Resistant Organisms: None Reported Past Surgical History: Adenoidectomy, Cholecystectomy, Hysterectomy, Joint Replacement, Orthopedic Surgery, Tonsillectomy Additional Past Surgical History / Comment(s): Bronchoscopy, rhinoplasty/deviated septum, right knee arthroscopy, bilateral knee replacements, vein stripping, left wrist surgery, A&P repair. Past Anesthesia/Blood Transfusion Reactions: Motion Sickness, Postoperative Nausea & Vomiting (PONV) Past Psychological History: Anxiety, Depression Smoking Status: Second hand smoke exposure, Never smoker Past Alcohol Use History: Occasional Past Drug Use History: None Reported - Past Family History Father Family Medical History: Deep Vein Thrombosis (DVT) <Alicia Espino - Last Filed: 10/26/24 16:14> General Exam Limitations: no limitations <Alicia Espino - Last Filed: 10/26/24 16:14> General appearance: alert, in no apparent distress, anxious Head exam: Present: atraumatic, normocephalic, normal inspection Eye exam: Present: normal appearance, PERRL, EOMI. Absent: scleral icterus, conjunctival injection, periorbital swelling ENT exam: Present: normal exam, mucous membranes moist Neck exam: Present: normal inspection. Absent: tenderness, meningismus, lymphadenopathy Respiratory exam: Present: respiratory distress, wheezes, accessory muscle use, decreased breath sounds, prolonged expiratory. Absent: rales, rhonchi, stridor Cardiovascular Exam: Present: regular rate, normal rhythm, normal heart sounds. Absent: systolic murmur, diastolic murmur, rubs, gallop, clicks GI/Abdominal exam: Present: soft, normal bowel sounds. Absent: distended, tenderness, guarding, rebound, rigid Extremities exam: Present: normal inspection, full ROM, normal capillary refill. Absent: tenderness, pedal edema, joint swelling, calf tenderness Back exam: Present: normal inspection Neurological exam: Present: alert, oriented X3, CN II-XII intact Psychiatric exam: Present: normal affect, normal mood Skin exam: Present: warm, dry, intact, normal color. Absent: rash <Caleb Jay - Last Filed: 11/01/24 19:56> - General Exam Comments Initial Comments: Visual Physical Exam Vital signs reviewed General: Well-appearing, nontoxic, no acute distress. Head: Normocephalic, atraumatic Eyes: PERRLA, EOMI ENT: Airway patent Chest: Nonlabored breathing Skin: No visual rash, normal skin tone Neuro: Alert and oriented 3 Musculoskeletal: No gross abnormalities (Stieler,Alicia) Course <Caleb Jay - Last Filed: 11/01/24 19:56> Vital Signs 10/26/24 10/26/24 10/26/24 15:38 22:17 23:00 Temperature 98.3 F 97.8 F Pulse Rate 65 73 74 Respiratory 20 18 20 Rate Blood Pressure 153/88 132/85 144/79 O2 Sat by Pulse 95 98 98 Oximetry 10/27/24 10/27/24 10/27/24 00:00 02:00 02:27 Temperature 98.1 F Pulse Rate 67 69 72 Respiratory 18 18 Rate Blood Pressure 137/99 121/78 O2 Sat by Pulse 98 95 Oximetry 10/27/24 10/27/24 10/27/24 02:34 04:00 06:00 Temperature 98.5 F Pulse Rate 74 72 Respiratory 16 Rate Blood Pressure 106/59 114/74 O2 Sat by Pulse 95 Oximetry 10/27/24 10/27/24 10/27/24 08:00 08:48 08:51 Temperature 97.9 F Pulse Rate 74 80 Respiratory 16 Rate Blood Pressure 104/62 O2 Sat by Pulse 95 94 L Oximetry 10/27/24 10/27/24 10/27/24 09:02 11:37 11:49 Temperature Pulse Rate 80 78 78 Respiratory Rate Blood Pressure O2 Sat by Pulse Oximetry 10/27/24 10/27/24 10/27/24 14:00 14:25 14:43 Temperature Pulse Rate 70 Respiratory 18 Rate Blood Pressure 103/62 103/62 116/68 O2 Sat by Pulse 96 Oximetry 10/27/24 10/27/24 10/27/24 14:44 16:00 16:01 Temperature Pulse Rate 78 81 Respiratory 18 Rate Blood Pressure 116/68 156/72 O2 Sat by Pulse 96 Oximetry 10/27/24 10/27/24 16:12 17:15 Temperature 98.8 F Pulse Rate 88 80 Respiratory 16 Rate Blood Pressure 102/58 O2 Sat by Pulse 95 Oximetry - Reevaluation(s) Reevaluation #1: 10/27/24 03:10 Medical records reviewed (Caleb Jay) Reevaluation #2: 10/27/24 03:10 Patient's symptoms only mildly improved (Caleb Jay) Reevaluation #3: 10/27/24 03:10 Patient informed of results questions answered (Caleb Jay) Reevaluation #4: Was pt. sent in by a medical professional or institution ([facility], TRAILER TRUCK [employer]IVER, urgent care, hospital, or penitentiary...) When possible be specific @ -no Did you speak to anyone other than the patient for history (EMS, parent, family, police, friend...)? What history was obtained from this source @ -no Did you review nursing and triage notes (agree or disagree)? Why? @ -agree Are old charts reviewed (outside hosp., previous admission, EMS record, old EKG, old radiological studies, urgent care reports/EKG's, penitentiary records)? Re port findings @ -yes Differential Diagnosis (chest pain, altered mental status, abdominal pain women, abdominal pain men, vaginal bleeding, weakness, fever, dyspnea, syncope, headache, dizziness, GI bleed, back pain, seizure, CVA, palpatations, mental health, musculoskeletal)? @ -prior EKG interpreted by me (3pts min.). @ -yes X-rays interpreted by me (1pt min.). @ -yes bilateral pleural effusion CT interpreted by me (1pt min.). @ -no U/S interpreted by me (1pt. min.). @ -no What testing was considered but not performed or refused? (CT, X-rays, U/S, labs)? Why? @ -none What meds were considered but not given or refused? Why? @ -none Did you discuss the management of the patient with other professionals (professionals i.e. [facility], TRAILER TRUCK DRIVER, lab, RT, psych nurse, social services assistant, vaccinator, teacher, supply requirements officer, outpatient case manager)? Give summary @ -no Was smoking cessation discussed for >3mins.? @ -no Was critical care preformed (if so, how long)? @ -yes31 Were there social determinants of health that impacted care today? How? (Homelessness, low income, unemployed, alcoholism, drug addiction, transportation, low edu. Level, literacy, decrease access to med. care, halfway, rehab)? @ -none Was there de-escalation of care discussed even if they declined (Discuss DNR or withdrawal of care, Hospice)? DNR status @ -no What co-morbidities impacted this encounter? (DM, HTN, Smoking, COPD, CAD, Cancer, CVA, ARF, Chemo, Hep., AIDS, mental health diagnosis, sleep apnea, morbid obesity)? @ -none Was patient admitted / discharged? Hospital course, mention meds given and route, prescriptions, significant lab abnormalities, going to OR and other pertinent info. @ - 69 female will be admitted for acute severe COPD exacerbation wheezing and shortness of breath Admitted Undiagnosed new problem with uncertain prognosis? @ -no Drug Therapy requiring intensive monitoring for toxicity (Heparin, Nitro, Insulin, Cardizem)? @ -no Were any procedures done? @ -no Diagnosis/symptom? @ -Severe COPD exacerbation Acute, or Chronic, or Acute on Chronic? @ -Acute Uncomplicated (without systemic symptoms) or Complicated (systemic symptoms)? @ -Complicated Side effects of treatment? @ -no Exacerbation, Progression, or Severe Exacerbation? @ -exacerbation Poses a threat to life or bodily function? How? (Chest pain, USA, IA, pneumonia, PE, COPD, DKA, ARF, appy, cholecystitis, CVA, Diverticulitis, Homicidal, Suicidal, threat to staff... and all critical care pts) @ -yes severe respiratory distress (Caleb Jay) Reevaluation #5: Differential Dyspnea: Coronary syndrome, arrhythmia, tamponade, asthma, COPD, pulmonary embolism, pneumonia, pneumothorax, pulmonary effusion, anaphylaxis, diabetic ketoacidosis, flailed chest, pulmonary contusion, diaphragmatic rupture, anemia, neuromuscular, this is not meant to be an all-inclusive list. (Claeb Jay) - Consultations Consultation #1: Spoke with [facility] who agrees to admit this patient (Caleb Jay) EKG Findings - EKG Comments: EKG Findings:: EKG is sinus 76 FL 131 QRS 121 QTc 443 - EKG Results: EKG: interpreted by ERMD <Caleb Jay - Last Filed: 11/01/24 19:56> Medical Decision Making <Alicia Espino - Last Filed: 10/26/24 16:14> - Lab Data Result diagrams: 10/31/24 05:17 10/31/24 05:17 - EKG Data -: EKG Interpreted by Me - Radiology Data Radiology results: report reviewed (Chest x-ray is bilateral lung changes no acute disease), image reviewed <Caleb Jay - Last Filed: 11/01/24 19:56> - Medical Decision Making I completed the quick note portion of this chart signed Alicia Espino PA-C (Alicia Espino) 69 female will be admitted for acute severe COPD exacerbation wheezing and shor tness of breath (Caleb Jay) - Lab Data Lab Results 10/26/24 10/26/24 10/26/24 Range/Units 17:37 17:37 17:37 WBC 13.35 H (4.50-10.00) 10*3/uL RBC 5.05 (4.10-5.20) 10*6/uL Hgb 14.3 (12.0-15.0) g/dL Hct 43.1 (37.2-46.3) % MCV 85.3 (80.0-97.0) fL MCH 28.3 (27.0-32.0) pg MCHC 33.2 (32.0-37.0) g/dL Plt Count 388 (140-440) 10*3/uL MPV 9.4 L (9.5-12.2) fL Immature Gran % (Auto) 0.7 % Neutrophils % 72.2 % Lymphocytes % 19.0 % Monocytes % 5.2 % Eosinophils % 2.4 % Basophils % 0.5 % Immature Gran # 0.09 H (0.00-0.04) 10*3/uL Neutrophils # 9.64 H (1.80-7.70) 10*3/uL Lymphocytes # 2.53 (0.90-5.00) 10*3/uL Monocytes # 0.70 (0.20-1.00) 10*3/uL Eosinophils # 0.32 (0.04-0.35) 10*3/uL Basophils # 0.07 (0.00-0.10) 10*3/uL PT 10.2 (10.0-12.5) sec INR 0.9 (<1.2) APTT 24.3 (22.0-30.0) sec D-Dimer 0.25 (<0.60) mg/L FEU Sodium 139 (137-145) mmol/L Potassium 3.8 (3.5-5.1) mmol/L Chloride 105 (98-107) mmol/L Carbon Dioxide 23 (22-30) mmol/L Anion Gap 11 mmol/L BUN 16 (7-17) mg/dL Creatinine 0.65 (0.52-1.04) mg/dL Est GFR (CKD-EPI)AfAm >90 (>60 ml/min/1.73 sqM) Est GFR (CKD-EPI)NonAf >90 (>60 ml/min/1.73 sqM) Glucose 97 (74-99) mg/dL Plasma Lactic Acid Thomas (0.7-2.0) mmol/L Calcium 9.0 (8.4-10.2) mg/dL Magnesium 1.9 (1.6-2.3) mg/dL Total Bilirubin 0.4 (0.2-1.3) mg/dL AST 18 (14-36) U/L ALT 14 (4-34) U/L Alkaline Phosphatase 85 (38-126) U/L Troponin I (0.000-0.034) ng/mL NT-Pro-B Natriuret Pep 938 pg/mL Total Protein 6.9 (6.3-8.2) g/dL Albumin 4.1 (3.5-5.0) g/dL 10/26/24 10/26/24 Range/Units 17:37 17:37 WBC (4.50-10.00) 10*3/uL RBC (4.10-5.20) 10*6/uL Hgb (12.0-15.0) g/dL Hct (37.2-46.3) % MCV (80.0-97.0) fL MCH (27.0-32.0) pg MCHC (32.0-37.0) g/dL Plt Count (140-440) 10*3/uL MPV (9.5-12.2) fL Immature Gran % (Auto) % Neutrophils % % Lymphocytes % % Monocytes % % Eosinophils % % Basophils % % Immature Gran # (0.00-0.04) 10*3/uL Neutrophils # (1.80-7.70) 10*3/uL Lymphocytes # (0.90-5.00) 10*3/uL Monocytes # (0.20-1.00) 10*3/uL Eosinophils # (0.04-0.35) 10*3/uL Basophils # (0.00-0.10) 10*3/uL PT (10.0-12.5) sec INR (<1.2) APTT (22.0-30.0) sec D-Dimer (<0.60) mg/L FEU Sodium (137-145) mmol/L Potassium (3.5-5.1) mmol/L Chloride (98-107) mmol/L Carbon Dioxide (22-30) mmol/L Anion Gap mmol/L BUN (7-17) mg/dL Creatinine (0.52-1.04) mg/dL Est GFR (CKD-EPI)AfAm (>60 ml/min/1.73 sqM) Est GFR (CKD-EPI)NonAf (>60 ml/min/1.73 sqM) Glucose (74-99) mg/dL Plasma Lactic Acid Thomas 1.2 (0.7-2.0) mmol/L Calcium (8.4-10.2) mg/dL Magnesium (1.6-2.3) mg/dL Total Bilirubin (0.2-1.3) mg/dL AST (14-36) U/L ALT (4-34) U/L Alkaline Phosphatase (38-126) U/L Troponin I <0.012 (0.000-0.034) ng/mL NT-Pro-B Natriuret Pep pg/mL Total Protein (6.3-8.2) g/dL Albumin (3.5-5.0) g/dL Critical Care Time Critical Care Time: Yes Total Critical Care Time: 31 <Caleb Jay - Last Filed: 11/01/24 19:56> Disposition <Alicia Espino - Last Filed: 10/26/24 16:14> Is patient prescribed a controlled substance at d/c from ED?: No Time of Disposition: 01:00 <Caleb Jay - Last Filed: 11/01/24 19:56> Clinical Impression: Acute exacerbation of chronic obstructive pulmonary disease, Tracheobronchitis, Asthma, Bilateral pleural effusion Disposition: ADMITTED IP TO THIS HOSP Condition: Fair
--- NOTE | 2024-10-26 16:34 | XR ---
EXAMINATION TYPE: XR chest 2V DATE OF EXAM: 10/26/2024 4:26 PM COMPARISON: r CLINICAL INDICATION: Female, 69 years old with history of difficulty breathing, TECHNIQUE: XR chest 2V view(s) obtained. FINDINGS: The heart size is mildly enlarged. The pulmonary vasculature is normal. Small bilateral pleural effusions are present. Hyperinflation flattening the diaphragms is present, c orrelate for COPD. IMPRESSION: 1. COPD. 2. There may be small bilateral pleural effusions present. [facility], , 10/26/2024 4:31 PM
[2024-10-26 17:48] LABS: Basophils # (A) 0.07 10*3/uL (0.00-0.10); Basophils % (A) 0.5 %; Eosinophils # (A) 0.32 10*3/uL (0.04-0.35); Eosinophils % (A) 2.4 %; HCT 43.1 % (37.2-46.3); HGB 14.3 g/dL (12.0-15.0); Lymphocytes # (A) 2.53 10*3/uL (0.90-5.00); Lymphocytes % (A) 19.0 %; MCH 28.3 pg (27.0-32.0); MCHC 33.2 g/dL (32.0-37.0); MCV 85.3 fL (80.0-97.0); Monocytes # (A) 0.70 10*3/uL (0.20-1.00); Monocytes % (A) 5.2 %; Neutrophils # (A) 9.64 10*3/uL (1.80-7.70); Neutrophils % (A) 72.2 %; Platelet Count 388 10*3/uL (140-440); RBC 5.05 10*6/uL (4.10-5.20); RDW 14.1 % (11.5-14.5); WBC 13.35 10*3/uL (4.50-10.00)
[2024-10-26 18:00] LABS: ALT 14 U/L (4-34); AST 18 U/L (14-36); African American GFR (CKD) >90 (>60 ml/min/1.73 sqM); Albumin 4.1 g/dL (3.5-5.0); Alkaline Phosphatase 85 U/L (38-126); Anion Gap 11 mmol/L; Blood Urea Nitrogen 16 mg/dL (7-17); Calcium 9.0 mg/dL (8.4-10.2); Carbon Dioxide 23 mmol/L (22-30); Chloride 105 mmol/L (98-107); Glucose 97 mg/dL (74-99); Magnesium 1.9 mg/dL (1.6-2.3); Non-African American GFR(CKD) >90 (>60 ml/min/1.73 sqM); Potassium 3.8 mmol/L (3.5-5.1); Sodium 139 mmol/L (137-145); Total Protein 6.9 g/dL (6.3-8.2)
[2024-10-26 18:09] LABS: NT-Pro-B-Type Natriuretic Pept 938 pg/mL
[2024-10-26 18:13] LABS: INR 0.9 (<1.2); Partial Thromboplastin Time 24.3 sec (22.0-30.0); Prothrombin Time 10.2 sec (10.0-12.5)
[2024-10-26] MEDS: SODIUM CHLORIDE 0.9% 1,000 ML IV ONE (23:02)
[2024-10-26] MEDS: MORPHINE SULFATE 2 MG/ML SYRINGE IVP STA (23:03)
[2024-10-26] MEDS: methylPREDNISolone SOD SUCCI 125 MG/2 ML VIAL IV STA (23:05)
[2024-10-26] MEDS: methylPREDNISolone SOD SUCCI 125 MG/2 ML VIAL IV SCH (23:15)
[2024-10-26] MEDS: SODIUM CHLORIDE 0.9% 1,000 ML IV SCH (23:39)
[2024-10-27] MEDS ORDERED: NALOXONE 0.4 MG/ML 1 ML VIAL IV PRN (01:52)
[2024-10-27] MEDS ORDERED: ACETAMINOPHEN TAB 325 MG TAB PO PRN (01:52)
[2024-10-27] MEDS ORDERED: MORPHINE SULFATE 4 MG/ML SYRINGE IV PRN (01:52)
[2024-10-27] MEDS: IPRATROPIUM-ALBUTEROL 3 ML NEB INHALATION STA (02:25)
[2024-10-27] MEDS ORDERED: ALBUTEROL NEBULIZED 2.5 MG/3 ML INHALATION SCH (04:00)
[2024-10-27] MEDS: LEVOFLOXACIN 750 MG TAB PO SCH (05:30)
--- NOTE | 2024-10-27 05:44 | P.CNPUL ---
History of Present Illness Consult date: 10/27/24 Requesting physician: Caleb Jay Reason for consult: asthma Chief complaint: Shortness of breath, cough History of present illness: Patient is 69-year-old female with past medical history significant for severe persistent asthma, tracheobronchomalacia, and previous Pseudomonas infections. Also, has history of allergic rhinitis, hypertension, hypothyroidism, and recent diagnosis of atrial fibrillation. She is anticoagulated on Eliquis. Patient presented emergency department yesterday afternoon with complaints of difficulty in breathing, lightheadedness, chest tightness. Reportedly, could not take a deep breath with severe wheezing. Chest x-ray showing hyperinflation. Possible small pleural effusions. NT proBNP only 938. CBC WBC count of 13.4, hemoglobin 14.3, platelets 388. D-dimer not clinically significant at 0.25. CMP unremarkable, electrolytes WDL, creatinine 0.65, glucose 97, lactic 1.2. Troponin less than 0.012. EKG: Normal sinus rhythm, with frequent unifocal PVCs. No acute ST segment elevations or T wave inversions. Patient previously loaded with IV Solu-Medrol and given multiple DuoNeb treatments. She is currently being evaluated in the emergency department. On room air. Wheezing and bronchospastic. Endorses productive cough, with yellow sputum. Denies fevers/chills. Denies nausea, vomiting, diarrhea. No rashes. Recent plane traveling to [place], [facility] in September. States she did get sick when she came back. Was treated with a combination of prednisone and doxycycline outpatient. She sees Dr. Knight in the pulmonary office. She also follows with a asthma specialist at the [facility], Dr. Barone. She is on Tr ezpire injections every 4 weeks. Also, uses a Trelegy inhaler. Was on Airsupra inhaler but stopped this because she felt it caused her atrial fibrillation. Which was reportedly found on event monitor. She is seeing Dr. Crain. Recently, was on metoprolol, however, this was discontinued. Last week was placed on Cardizem. Denies any chest pain. Denies heart palpitations. Denies syncopal events. Denies any lower extremity edema. Reportedly, had esophagogram 3 days ago. Was told she has a hiatal hernia. Currently, rhythm appears normal sinus on bedside monitor. Vitals are stable. Review of Systems Constitutional: Reports fatigue, Denies chills, Denies fever, Denies poor appetite, Denies sweats, Denies weight gain, Denies weight loss Ears, nose, mouth and throat: Reports nasal congestion, Denies epistaxis, Denies nasal discharge, Denies post-nasal drip, Denies sinus pain, Denies sinus pressure, Denies sore throat Cardiovascular: Reports lightheadedness, Denies chest pain, Denies leg edema, Denies orthopnea, Denies palpitations, Denies paroxysmal nocturnal dyspnea, Denies syncope Respiratory: Reports congestion, Reports cough with sputum, Reports dyspnea, Reports wheezing, Denies pain Gastrointestinal: Denies abdominal pain, Denies diarrhea, Denies nausea, Denies vomiting Genitourinary: Denies dysuria Musculoskeletal: Denies limitation of motion Integumentary: Denies rash Neurological: Denies seizures, Denies syncope Psychiatric: Denies anxiety, Denies depression Past Medical History Past Medical History: Asthma, Hypertension, Osteoarthritis (OA), Pneumonia, Skin Disorder, Sleep Apnea/CPAP/BIPAP, Supraventricular Tachycardia (SVT) Additional Past Medical History / Comment(s): Left BBB History of Any Multi-Drug Resistant Organisms: None Reported Past Surgical History: Adenoidectomy, Cholecystectomy, Hysterectomy, Joint Replacement, Orthopedic Surgery, Tonsillectomy Additional Past Surgical History / Comment(s): Bronchoscopy, rhinoplasty/deviated septum, right knee arthroscopy, bilateral knee replacements, vein stripping, left wrist surgery, A&P repair. Past Anesthesia/Blood Transfusion Reactions: Motion Sickness, Postoperative Na usea & Vomiting (PONV) Past Psychological History: Anxiety, Depression Smoking Status: Second hand smoke exposure, Never smoker Past Alcohol Use History: Occasional Past Drug Use History: None Reported - Past Family History Father Family Medical History: Deep Vein Thrombosis (DVT) Medications and Allergies Home Medications Medication Instructions Recorded Confirmed Type Albuterol Sulfate [Proventil Hfa] 2 puff INHALATION RT-Q6H PRN 09/08/13 10/27/24 History Montelukast [Singulair] 10 mg PO HS 09/08/13 10/27/24 History Progesterone, Micronized 100 mg PO HS 09/21/17 10/27/24 History [Progesterone] ALPRAZolam [Xanax] 0.5 mg PO DAILY PRN 07/01/21 10/27/24 History guaiFENesin [Mucinex] 600 mg PO BID 10 Days #20 tab 07/09/21 10/27/24 Rx Latanoprost [Latanoprost 0.005%] 1 drop BOTH EYES HS 05/27/24 10/27/24 History Losartan [Cozaar] 50 mg PO HS 05/27/24 10/27/24 History amLODIPine [Norvasc] 10 mg PO DAILY 05/27/24 10/27/24 History Albuterol Sulfate/Budesonide 2 puff INHALATION RT-Q4H PRN 10/27/24 10/27/24 History [Airsupra 90-80 Mcg Inhaler] Apixaban [Eliquis] 5 mg PO BID 10/27/24 10/27/24 History Cetirizine HCl [Zyrtec] 10 mg PO DAILY 10/27/24 10/27/24 History Fluticasone/Umeclidin/Vilanter 1 puff INHALATION RT-DAILY 10/27/24 10/27/24 History [Trelegy Ellipta 200-62.5-25] Tezepelumab-Ekko [Tezspire] 210 mg SQ Q28D 10/27/24 10/27/24 History dilTIAZem HCL [dilTIAZem HCL 24Hr 120 mg PO HS 10/27/24 10/27/24 History ER (CD)] metFORMIN HCL [Glucophage] 850 mg PO BID 10/27/24 10/27/24 History Allergies Allergy/AdvReac Type Severity Reaction Status Date / Time hydrochlorothiazide Allergy Rash/Hives Verified 10/27/24 12:09 Sulfa (Sulfonamide Allergy Rash/Hives Verified 10/27/24 12:09 Antibiotics) sulfamethoxazole Allergy Rash/Hives Verified 10/27/24 12:09 [From Bactrim] trimethoprim [From Bactrim] Allergy Rash/Hives/ Verified 10/27/24 12:09 fever/aches Physical Exam Vitals: Vital Signs Temp Pulse Resp BP Pulse Ox 10/27/24 04:00 98.5 F 72 16 106/59 95 10/27/24 02:34 74 10/27/24 02:27 72 10/27/24 02:00 98.1 F 69 18 121/78 95 10/27/24 00:00 67 18 137/99 98 10/26/24 23:00 74 20 144/79 98 10/26/24 22:17 97.8 F 73 18 132/85 98 10/26/24 15:38 98.3 F 65 20 153/88 95 Intake and Output 10/26/24 10/26/24 10/27/24 14:59 22:59 06:59 Other: Weight 68.039 kg GENERAL EXAM: Alert, 69-year-old female, comfortable in no apparent distress. HEAD: Normocephalic and atraumatic EYES: Normal reaction of pupils, equal size. NOSE: Clear with pink turbinates. THROAT: No erythema or exudates. NECK: No masses, no JVD. CHEST: No chest wall deformity. LUNGS: Equal air entry with diffuse inspiratory and expiratory wheezing and scattered rhonchi. On room air. Bronchospastic cough.. CVS: S1 and S2 normal with no audible murmur, regular rhythm. No extra heart sounds ABDOMEN: No hepatosplenomegaly, active bowel sounds, no guarding or rigidity. SPINE: No scoliosis or deformity SKIN: No rashes CENTRAL NERVOUS SYSTEM: No focal deficits, tone is normal in all 4 extremities. EXTREMITIES: There is no peripheral edema, clubbing, or cyanosis. Peripheral pulses are intact. Results - Laboratory Findings CBC and BMP: 10/26/24 17:37 10/26/24 17:37 PT/INR, D-dimer PT 10.2 sec (10.0-12.5) 10/26/24 17:37 INR 0.9 (<1.2) 10/26/24 17:37 D-Dimer 0.25 mg/L FEU (<0.60) 10/26/24 17:37 Abnormal lab findings: Abnormal Labs 10/26/24 17:37 WBC 13.35 H MPV 9.4 L Immature Gran # 0.09 H Neutrophils # 9.64 H - Diagnostic Findings Chest x-ray: image reviewed Assessment and Plan Assessment: Exacerbation of severe persistent asthma Acute dyspnea, secondary to above Tracheobronchomalacia Previous pseudomonal infections Acute leukocytosis Eosinophilic asthma, receives Trezspire injections on outpatient basis History of allergic rhinitis Hypertension Paroxysmal atrial fibrillation, is anticoagulated on Eliquis outpatient, currently normal sinus rhythm History of hypothyroidism Anxiety Plan: On room air Continue bronchodilators and Solu-Medrol Add Symbicort inhaler, may substitute for Trelegy inhaler if made available Obtain sputum culture Start patient on empiric antibiotic May benefit from repeat bronchoscopy with BAL if no improvement Case to be reviewed with Dr. Dolan, additional recommendations to follow I have personally seen and examined the patient, performed the documentation and the assessment and plan as written. Number of minutes spent on the visit:20 The joint evaluation with the nurse practitioner. This evaluation was done and 32 minutes. The patient is known to have severe persistent bronchial asthma maintained on an outpatient basis and the patient is also on Trelegy Ellipta. The patient is coming in with acute asthma exacerbation with active bronchospasm wheezing. Previous bronchoscopy is from 2021, the patient was also noted to have tracheobronchomalacia. Back pain, the patient was infected also with Pseudomonas aeruginosa. No fever. No chills. Will continue bronchodilators. Continue steroids. Possible bronchoscopy over the next 24 to 48 hours to rule out recurrence and pseudomonal infection. Meanwhile, a CAT scan of the chest will be also ordered. Keep n.p.o. after midnight. Passive bronchoscopy in AM. Time with Patient: Greater than 30
[2024-10-27 07:20] LABS: RSV Not Detected (Not Detectd)
[2024-10-27] MEDS: SYMBICORT 160-4.5 MCG INHALER INHALATION SCH (08:50)
[2024-10-27] MEDS: ALBUTEROL NEBULIZED 2.5 MG/3 ML INHALATION SCH (08:50)
--- NOTE | 2024-10-27 15:39 | P.HPIM ---
History of Present Illness H&P Date: 10/27/24 History of present illness: 69-year-old female with past medical history significant for severe persistent asthma, history of Pseudomonas infection in the past, tracheobronchomalacia, hypertension osteoarthritis, sleep apnea, history of SVTs, atrial fibrillation on Eliquis history of allergic rhinitis, hypothyroidism who presented to ER with a complaint of difficulty breathing, lightheadedness, chest tightness. Patient reported that she was unable to take deep breaths with severe wheezing. Patient denied any fever or chills, denied any productive cough. Patient denied any headache, vision changes, sore throat, nausea vomiting diarrhea constipation abdominal pain dysuria urgency frequency weakness or numbness of extremities. Patient is afebrile, heart rate 74, respiratory rate 16, blood pressure 104/62, saturating 94% on room air. WBCs 13.3 hemoglobin 14.3, platelet 388. INR 0.9. CMP unremarkable. Troponin remained negative x 3. Influenza RSV and COVID PCR negative. Chest x-ray showed changes of COPD, small bilateral pleural effusions. Assessment and plan: Exacerbation of severe persistent asthma: History of tracheobronchomalacia History of pseudomonal infections Leukocytosis Eosinophilic asthma receives transpire injections Allergic rhinitis Presented with worsening shortness of breath, wheezing, cough. Chest x-ray showed COPD, small bilateral pleural effusions. Continue bronchodilators Continue Solu-Medrol Sputum cultures Empiric antibiotics Levaquin Pulmonary consulted and following Paroxysmal atrial fibrillation: Recently diagnosed with atrial fibrillation Continue Cardizem, Eliquis Cardiology consult Hypothyroidism: Synthroid Hypertension: Losartan, Cardizem. Anxiety: Xanax as needed DVT prophylaxis Anticoagulated Monitor vital signs and labs Labs and medication were reviewed. Continue same treatment. Further recommendations as per clinical course of the patient PHYSICAL EXAMINATION: GENERAL: The patient is A&O x3, NAD HEENT: EOMI, Sclerae anicteric, Moist Mucous membranes Neck: Supple, Non tender, No JVD PULMONARY: Decreased breath sound bilaterally, bilateral expiratory wheezes.. CARDIOVASCULAR: S1, S2 present. No murmurs, rubs, or gallops. ABDOMEN: Soft, nontender, nondistended, normoactive bowel sounds. No guarding or rebound tenderness. MUSCULOSKELETAL: No edema, No cyanosis. No clubbing. Normal ROM. Intact peripheral pulses. NEUROLOGICAL: CN 2-12 grossly intact. No FND REVIEW OF SYSTEMS: CONSTITUTIONAL: No fever, no malaise, no fatigue. HEENT: No recent visual problems or hearing problems. Denied any sore throat. CARDIOVASCULAR: No chest pain, orthopnea, PND, no palpitations, no syncope. PULMONARY: Complains of shortness of breath and wheezing. GASTROINTESTINAL: No diarrhea, no nausea, no vomiting, no abdominal pain. NEUROLOGICAL: No headaches, no weakness, no numbness. HEMATOLOGICAL: Denies any bleeding or petechiae. GENITOURINARY: Denies any burning micturition, frequency, or urgency. MUSCULOSKELETAL/RHEUMATOLOGICAL: Denies any joint pain, swelling, or any muscle pain. ENDOCRINE: Denies any polyuria or polydipsia. The rest of the 14-point review of systems is negative. Dictation was produced using [employer] dictation software. please excuse any grammatical, word or spelling errors. Past Medical History Past Medical History: Asthma, Hypertension, Osteoarthritis (OA), Pneumonia, Skin Disorder, Sleep Apnea/CPAP/BIPAP, Supraventricular Tachycardia (SVT) Additional Past Medical History / Comment(s): Left BBB History of Any Multi-Drug Resistant Organisms: None Reported Past Surgical History: Adenoidectomy, Cholecystectomy, Hysterectomy, Joint Replacement, Orthopedic Surgery, Tonsillectomy Additional Past Surgical History / Comment(s): Bronchoscopy, rhinoplasty/deviated septum, right knee arthroscopy, bilateral knee replacements, vein stripping, left wrist surgery, A&P repair. Past Anesthesia/Blood Transfusion Reactions: Motion Sickness, Postoperative Nausea & Vomiting (PONV) Past Psychological History: Anxiety, Depression Smoking Status: Second hand smoke exposure, Never smoker Past Alcohol Use History: Occasional Past Drug Use History: None Reported - Past Family History Father Family Medical History: Deep Vein Thrombosis (DVT) Medications and Allergies Home Medications Medication Instructions Recorded Confirmed Type Albuterol Sulfate [Proventil Hfa] 2 puff INHALATION RT-Q6H PRN 09/08/13 10/27/24 History Montelukast [Singulair] 10 mg PO HS 09/08/13 10/27/24 History Progesterone, Micronized 100 mg PO HS 09/21/17 10/27/24 History [Progesterone] ALPRAZolam [Xanax] 0.5 mg PO DAILY PRN 07/01/21 10/27/24 History guaiFENesin [Mucinex] 600 mg PO BID 10 Days #20 tab 07/09/21 10/27/24 Rx Latanoprost [Latanoprost 0.005%] 1 drop BOTH EYES HS 05/27/24 10/27/24 History Losartan [Cozaar] 50 mg PO HS 05/27/24 10/27/24 History amLODIPine [Norvasc] 10 mg PO DAILY 05/27/24 10/27/24 History Albuterol Sulfate/Budesonide 2 puff INHALATION RT-Q4H PRN 10/27/24 10/27/24 History [Airsupra 90-80 Mcg Inhaler] Apixaban [Eliquis] 5 mg PO BID 10/27/24 10/27/24 History Cetirizine HCl [Zyrtec] 10 mg PO DAILY 10/27/24 10/27/24 History Fluticasone/Umeclidin/Vilanter 1 puff INHALATION RT-DAILY 10/27/24 10/27/24 History [Trelegy Ellipta 200-62.5-25] Tezepelumab-Ekko [Tezspire] 210 mg SQ Q28D 10/27/24 10/27/24 History dilTIAZem HCL [dilTIAZem HCL 24Hr 120 mg PO HS 10/27/24 10/27/24 History ER (CD)] metFORMIN HCL [Glucophage] 850 mg PO BID 10/27/24 10/27/24 History Allergies Allergy/AdvReac Type Severity Reaction Status Date / Time hydrochlorothiazide Allergy Rash/Hives Verified 10/27/24 12:09 Sulfa (Sulfonamide Allergy Rash/Hives Verified 10/27/24 12:09 Antibiotics) sulfamethoxazole Allergy Rash/Hives Verified 10/27/24 12:09 [From Bactrim] trimethoprim [From Bactrim] Allergy Rash/Hives/ Verified 10/27/24 12:09 fever/aches Physical Exam Vitals: Vital Signs Temp Pulse Resp BP Pulse Ox 10/27/24 14:44 78 18 116/68 96 10/27/24 14:25 70 18 103/62 96 10/27/24 11:49 78 10/27/24 11:37 78 10/27/24 09:02 80 10/27/24 08:51 80 94 L 10/27/24 08:48 97.9 F 74 16 95 10/27/24 08:00 104/62 10/27/24 06:00 114/74 10/27/24 04:00 98.5 F 72 16 106/59 95 10/27/24 02:34 74 10/27/24 02:27 72 10/27/24 02:00 98.1 F 69 18 121/78 95 10/27/24 00:00 67 18 137/99 98 10/26/24 23:00 74 20 144/79 98 10/26/24 22:17 97.8 F 73 18 132/85 98 10/26/24 15:38 98.3 F 65 20 153/88 95 Results CBC & Chem 7: 10/26/24 17:37 10/26/24 17:37 Labs: Abnormal Lab Results - Last 24 Hours (Table) 10/26/24 Range/Units 17:37 WBC 13.35 H (4.50-10.00) 10*3/uL MPV 9.4 L (9.5-12.2) fL Immature Gran # 0.09 H (0.00-0.04) 10*3/uL Neutrophils # 9.64 H (1.80-7.70) 10*3/uL
--- NOTE | 2024-10-27 16:18 | CT ---
EXAMINATION TYPE: CT chest wo con CT DLP: 285.2 mGycm, Automated exposure control for dose reduction was used. DATE OF EXAM: 10/27/2024 3:52 PM COMPARISON: Chest radiograph 10/26/2024, CT chest 07/06/2021 CLINICAL INDICATION:Female, 69 years old with history of pneumonia; PHH, pneumonia TECHNIQUE: Multiple axial images were obtained through the chest without IV contrast. Lack of IV or o ral contrast limits evaluation of solid and hollow organ viscera. . Coronal and sagittal reformats re viewed. FINDINGS: LUNGS/ PLEURA: No pleural effusion or pneumothorax. Bibasilar bronchiectasis. Minimal left lower lob e subpleural opacities. Some trace transient but nodular opacities within the lingula. Development of a 5.6 mm nodule within the left lower lobe (series 205, image 47). Tree-in-bud nodular opacities wit hin the right lower lobe with a focal nodular 1.0 cm opacity (series 205, image 44). Irregular opacit y within the right mid lung measuring up to 8.9 mm (series 205, image 31). Similar scarring/consolida tive opacities within the right middle lobe. AIRWAY: Patent and unremarkable.. HEART: Mildly enlarged. . No pericardial effusion. Mild coronary artery calcifications present. MEDIASTINUM: Mildly prominent paratracheal lymph nodes measuring up to 1 cm short axis which is decre ased in size on prior examination when it measured up to 1.6 cm short axis. Considered benign. VASCULATURE: No aortic aneurysm. MUSCULOSKELETAL: Mild disc degeneration changes are present throughout the thoracolumbar spine. Mild S-shaped scoliotic curvature of the thoracic spine. No acute osseous abnormality. SOFT TISSUES/LYMPH NODES: Unremarkable. LOWER NECK: No significant findings. UPPER ABDOMEN: Gallbladder is surgically absent. Hyperdense material is identified within the bowel i n the left upper quadrant. This creates streak artifact which limits evaluation. Large left renal sup erior pole cyst redemonstrated. No follow-up recommended. Small hiatal hernia. IMPRESSION: 1. Right lower lobe and lingular tree-in-bud nodular opacities with additional right lower lobe 1 cm nodule opacity. Additional few scattered nodular opacities which are new from prior exam. Finding sug gests infectious/inflammatory bronchiolitis with infectious/inflammatory nodules. Recommend follow-up CT chest in 3 months. 2. Similar scarring/consolidative opacity within the right middle lobe dating back to 2021. [facility], , 10/27/2024 4:15 PM
[2024-10-27] MEDS: APIXABAN 5 MG TAB PO SCH (16:20)
[2024-10-27] MEDS ORDERED: DEXTROSE 50% SYRINGE 50 ML IVP PRN ×2 (16:58)
[2024-10-27 17:40] LABS: Glucose,Whole Blood 161 mg/dL (70-110)
[2024-10-27] MEDS: INSULIN LISPRO (HumaLOG) 100 UNIT/ML 10 mL VL SQ SCH (17:49)
[2024-10-27] MEDS: MONTELUKAST 10 MG TAB PO SCH (19:52)
[2024-10-27] MEDS: LOSARTAN 50 MG TAB PO SCH (19:52)
[2024-10-27 19:53] LABS: Glucose,Whole Blood 174 mg/dL (70-110)
[2024-10-27] MEDS: LATANOPROST 0.005% OPHTH DROPS 2.5 ML BTL BOTH EYES SCH (20:03)
[2024-10-27] MEDS: DILTIAZEM CD 120 MG CAP.ER.24H PO SCH (20:32)
[2024-10-28] MEDS: DEXTROSE 5% IN WATER 100 ML with AMIODARONE 150 MG IV ONE (02:32)
[2024-10-28] MEDS: AMIODARONE 360 MG in DEXTROSE 5% IN WATER 200 ML IV ONE (02:43)
[2024-10-28 04:57] LABS: Basophils # (A) 0.01 10*3/uL (0.00-0.10); Basophils % (A) 0.1 %; Eosinophils # (A) 0.00 10*3/uL (0.04-0.35); Eosinophils % (A) 0.0 %; HCT 36.2 % (37.2-46.3); HGB 12.1 g/dL (12.0-15.0); Lymphocytes # (A) 1.12 10*3/uL (0.90-5.00); Lymphocytes % (A) 8.8 %; MCH 28.5 pg (27.0-32.0); MCHC 33.4 g/dL (32.0-37.0); MCV 85.2 fL (80.0-97.0); Monocytes # (A) 0.38 10*3/uL (0.20-1.00); Monocytes % (A) 3.0 %; Neutrophils # (A) 11.20 10*3/uL (1.80-7.70); Neutrophils % (A) 87.6 %; Platelet Count 382 10*3/uL (140-440); RBC 4.25 10*6/uL (4.10-5.20); RDW 14.0 % (11.5-14.5); WBC 12.77 10*3/uL (4.50-10.00)
[2024-10-28 05:10] LABS: ALT 12 U/L (4-34); AST 14 U/L (14-36); African American GFR (CKD) >90 (>60 ml/min/1.73 sqM); Albumin 3.2 g/dL (3.5-5.0); Alkaline Phosphatase 61 U/L (38-126); Anion Gap 9 mmol/L; Blood Urea Nitrogen 14 mg/dL (7-17); Calcium 8.9 mg/dL (8.4-10.2); Carbon Dioxide 21 mmol/L (22-30); Chloride 107 mmol/L (98-107); Glucose 166 mg/dL (74-99); Magnesium 2.0 mg/dL (1.6-2.3); Non-African American GFR(CKD) >90 (>60 ml/min/1.73 sqM); Potassium 3.8 mmol/L (3.5-5.1); Sodium 137 mmol/L (137-145); Total Protein 5.6 g/dL (6.3-8.2)
[2024-10-28 06:14] LABS: Glucose,Whole Blood 160 mg/dL (70-110)
[2024-10-28] MEDS: LORATADINE 10 MG TAB PO SCH (08:00)
[2024-10-28] MEDS: amLODIPine 10 MG TAB PO SCH (09:00)
[2024-10-28] MEDS ORDERED: amLODIPine 10 MG TAB PO SCH (09:00)
[2024-10-28] MEDS: ALPRAZolam 0.5 MG TAB PO PRN (11:07)
--- NOTE | 2024-10-28 11:11 | P.CRDCN ---
History of Present Illness History of present illness: HISTORY OF PRESENT ILLNESS: This is a 69-year-old female with a past medical history significant for atrial fibrillation, diabetes, hypertension, hyperlipidemia, nonischemic cardiomyopath y, SVT, PVCs, left bundle branch block, and asthma. Patient follows in the office with Dr. Crain. We have been asked to see the patient in consultation for atrial fibrillation. Patient examined at the bedside. Patient is admitted to the hospital secondary to asthma exacerbation. She is scheduled for bronchoscopy today. Patient went into A-fib with RVR overnight. She was started on IV amiodarone. She converted to sinus mechanism and is maintaining sinus mechanism this morning. She reports having about 6 episodes of atrial fibrillation since May. She states recently her breathing has been acting up due to her asthma and she has noticed more episodes of atrial fibrillation at home. DIAGNOSTICS: - EKG reveals sinus mechanism x 2. Repeat EKG revealed atrial fibrillation. - Chest xray COPD and small bilateral pleural effusions. - Laboratory data: WBC 12.77. Hemoglobin 12.1. Platelet count 382. Sodium 137. Potassium 3.8. BUN 14. Creatinine 0.64 - Current home cardiac medications include Cardizem CD1 120 mg at night, Eliquis 5 mg twice a day, losartan 50 mg at night, amlodipine 10 mg daily. - Most recent echocardiogram obtained in December 2023 revealing ejection fraction 55 to 60%, moderate MR, mild TR - Cardiac catheterization history: Patient denies Patient underwent stress testing in May 2018 which was negative for ischemia REVIEW OF SYSTEMS: At the time of my exam: CONSTITUTIONAL: Denies fever or chills. HEENT: Denies blurred vision, vision changes, or eye pain. Denies hemoptysis CARDIOVASCULAR: Denies chest pain. Denies orthopnea. Denies PND. Denies p alpitations RESPIRATORY: Denies shortness of breath. GASTROINTESTINAL: Denies abdominal pain. Denies nausea or vomiting. HEMATOLOGIC: Denies bleeding disorders. GENITOURINARY: Denies any blood in urine. SKIN: Denies pruitis. Denies rash. PHYSICAL EXAM: VITAL SIGNS: Reviewed. GENERAL: Well-developed in no acute distress. HEENT: Head is normocephalic. Pupils are equal, round. Sclerae anicteric. Mucous membranes of the mouth are moist. Neck supple. No JVD or thyromegaly LUNGS: Respirations even and unlabored. Lungs essentially clear to auscultation bilaterally. HEART: Regular rate and rhythm. S1 and S2 heard. ABDOMEN: Soft. Nondistended. Nontender. EXTREMITIES: Normal range of motion. No clubbing or cyanosis. Peripheral pulses intact. No lower extremity edema NEUROLOGIC: Awake and alert. Oriented x 3. ASSESSMENT: Acute asthma exacerbation Paroxysmal atrial fibrillation with RVR History of PVCs History of atrial tachycardia Hypertension Hyperlipidemia History of nonischemic cardiomyopathy with recovered EF History of SVT Known left bundle branch block Diabetes PLAN: Discontinue amiodarone. Recommend no further amiodarone due to patient's history of asthma Discontinue oral Cardizem Resume home dose of amlodipine 10 mg daily Begin atenolol 50 mg daily as needed when patient is having palpitations and episodes of atrial fibrillation Patient will be scheduled for outpatient A-fib ablation with Dr. Lopez Patient may be discharged home today and follow-up in the office with Dr. Crain Nurse practitioner note has been reviewed by physician. Signing provider agrees with the documented findings, assessment, and plan of care documented by SENIOR ADMINISTRATOR SUPPORT as a scribe. Past Medical History Past Medical History: Asthma, Hypertension, Osteoarthritis (OA), Pneumonia, Skin Disorder, Sleep Apnea/CPAP/BIPAP, Supraventricular Tachycardia (SVT) Additional Past Medical History / Comment(s): Left BBB History of Any Multi-Drug Resistant Organisms: None Reported Past Surgical History: Adenoidectomy, Cholecystectomy, Hysterectomy, Joint Replacement, Orthopedic Surgery, Tonsillectomy Additional Past Surgical History / Comment(s): Bronchoscopy, rh inoplasty/deviated septum, right knee arthroscopy, bilateral knee replacements, vein stripping, left wrist surgery, A&P repair. Past Anesthesia/Blood Transfusion Reactions: Motion Sickness, Postoperative Nausea & Vomiting (PONV) Past Psychological History: Anxiety, Depression Smoking Status: Second hand smoke exposure, Never smoker Past Alcohol Use History: Occasional Past Drug Use History: None Reported - Past Family History Father Family Medical History: Deep Vein Thrombosis (DVT) Medications and Allergies Home Medications Medication Instructions Recorded Confirmed Type Albuterol Sulfate [Proventil Hfa] 2 puff INHALATION RT-Q6H PRN 09/08/13 10/27/24 History Montelukast [Singulair] 10 mg PO HS 09/08/13 10/27/24 History Progesterone, Micronized 100 mg PO HS 09/21/17 10/27/24 History [Progesterone] ALPRAZolam [Xanax] 0.5 mg PO DAILY PRN 07/01/21 10/27/24 History guaiFENesin [Mucinex] 600 mg PO BID 10 Days #20 tab 07/09/21 10/27/24 Rx Latanoprost [Latanoprost 0.005%] 1 drop BOTH EYES HS 05/27/24 10/27/24 History Losartan [Cozaar] 50 mg PO HS 05/27/24 10/27/24 History amLODIPine [Norvasc] 10 mg PO DAILY 05/27/24 10/27/24 History Albuterol Sulfate/Budesonide 2 puff INHALATION RT-Q4H PRN 10/27/24 10/27/24 History [Airsupra 90-80 Mcg Inhaler] Apixaban [Eliquis] 5 mg PO BID 10/27/24 10/27/24 History Cetirizine HCl [Zyrtec] 10 mg PO DAILY 10/27/24 10/27/24 History Fluticasone/Umeclidin/Vilanter 1 puff INHALATION RT-DAILY 10/27/24 10/27/24 History [Trelegy Ellipta 200-62.5-25] Tezepelumab-Ekko [Tezspire] 210 mg SQ Q28D 10/27/24 10/27/24 History dilTIAZem HCL [dilTIAZem HCL 24Hr 120 mg PO HS 10/27/24 10/27/24 History ER (CD)] metFORMIN HCL [Glucophage] 850 mg PO BID 10/27/24 10/27/24 History Allergies Allergy/AdvReac Type Severity Reaction Status Date / Time hydrochlorothiazide Allergy Rash/Hives Verified 10/27/24 12:09 Sulfa (Sulfonamide Allergy Rash/Hives Verified 10/27/24 12:09 Antibiotics) sulfamethoxazole Allergy Rash/Hives Verified 10/27/24 12:09 [From Bactrim] trimethoprim [From Bactrim] Allergy Rash/Hives/ Verified 10/27/24 12:09 fever/aches Physical Exam Vitals: Vital Signs Temp Pulse Pulse Pulse Resp BP BP 10/28/24 09:40 83 18 10/28/24 09:32 82 18 10/28/24 08:00 98 F 76 18 121/73 10/28/24 05:24 97.8 F 114 H 16 119/81 10/28/24 02:36 131 H 129/83 10/27/24 21:58 90 10/27/24 21:43 87 10/27/24 19:51 98.4 F 68 17 132/72 10/27/24 18:23 10/27/24 18:09 98.4 F 88 18 10/27/24 17:15 98.8 F 80 16 102/58 10/27/24 16:12 88 10/27/24 16:01 81 10/27/24 16:00 156/72 10/27/24 14:44 78 18 116/68 10/27/24 14:43 116/68 10/27/24 14:25 70 18 103/62 10/27/24 14:00 103/62 10/27/24 11:49 78 10/27/24 11:37 78 BP Pulse Ox 10/28/24 09:40 10/28/24 09:32 96 10/28/24 08:00 96 10/28/24 05:24 95 10/28/24 02:36 10/27/24 21:58 10/27/24 21:43 10/27/24 19:51 95 10/27/24 18:23 140/73 10/27/24 18:09 94 L 10/27/24 17:15 95 10/27/24 16:12 10/27/24 16:01 10/27/24 16:00 10/27/24 14:44 96 10/27/24 14:43 10/27/24 14:25 96 10/27/24 14:00 10/27/24 11:49 10/27/24 11:37 Intake and Output 10/27/24 10/28/24 10/28/24 22:59 06:59 14:59 Intake Total 100 160.554 Balance 100 160.554 Intake: Intake, IV Titration 160.554 Amount Amiodarone 360 mg In 160.554 Dextrose 5% in Water 200 ml @ 1 MG/MIN 33.333 mls/ hr IV .Q6H ONE Rx#: [id number] Oral 100 0 Other: Voiding Method Toilet # Voids 1 1 Weight 68.039 kg Results 10/28/24 04:12 10/28/24 04:12 Cardiac Enzymes 10/28/24 Range/Units 04:12 AST 14 (14-36) U/L CBC 10/28/24 Range/Units 04:12 WBC 12.77 H (4.50-10.00) 10*3/uL RBC 4.25 (4.10-5.20) 10*6/uL Hgb 12.1 (12.0-15.0) g/dL Hct 36.2 L (37.2-46.3) % Plt Count 382 (140-440) 10*3/uL Comprehensive Metabolic Panel 10/28/24 Range/Units 04:12 Sodium 137 (137-145) mmol/L Potassium 3.8 (3.5-5.1) mmol/L Chloride 107 (98-107) mmol/L Carbon Dioxide 21 L (22-30) mmol/L BUN 14 (7-17) mg/dL Creatinine 0.46 L (0.52-1.04) mg/dL Glucose 166 H (74-99) mg/dL Calcium 8.9 (8.4-10.2) mg/dL AST 14 (14-36) U/L ALT 12 (4-34) U/L Alkaline Phosphatase 61 (38-126) U/L Total Protein 5.6 L (6.3-8.2) g/dL Albumin 3.2 L (3.5-5.0) g/dL Current Medications Generic Name Dose Route Start Last Admin Trade Name Freq PRN Reason Stop Dose Admin Acetaminophen 650 mg 10/27/24 01:52 Acetaminophen Tab 325 Mg Tab PO Q6HR PRN Mild Pain or Fever > 100.5 Albuterol Sulfate 2.5 mg 10/27/24 08:00 10/28/24 09:32 Albuterol Nebulized 2.5 Mg/3 Ml INHALATION 2.5 mg RT-QID LARA Administration Alprazolam 0.5 mg 10/27/24 15:36 Alprazolam 0.5 Mg Tab PO DAILY PRN Anxiety Amlodipine Besylate 10 mg 10/28/24 09:00 10/28/24 09:00 Amlodipine 10 Mg Tab PO 10 mg DAILY LARA Administration Apixaban 5 mg 10/27/24 15:37 10/28/24 08:00 Apixaban 5 Mg Tab PO 5 mg BID LARA Administration Protocol Atenolol 50 mg 10/28/24 08:39 Atenolol 50 Mg Tab PO DAILY PRN Tachyarrhythmias Budesonide/Formoterol Fumarate 2 puff 10/27/24 08:00 10/28/24 09:32 Symbicort 160-4.5 Mcg Inhaler INHALATION 2 puff RT-BID LARA Administration Dextrose/Water 50 ml 10/27/24 16:58 Dextrose 50% Syringe 50 Ml IVP PER PROTOCOL PRN Hypoglycemia Protocol Guaifenesin 600 mg 10/27/24 21:00 10/28/24 08:00 Guaifenesin 600 Mg Tablet.Er PO 600 mg BID LARA Administration Sodium Chloride 1,000 mls @ 130 mls/hr 10/26/24 23:00 10/28/24 05:33 Saline 0.9% IV Not Given .Q7H42M LARA Insulin Human Lispro 0 unit 10/27/24 17:30 10/28/24 06:35 Insulin Lispro (Humalog) 100 Unit/Ml 10 Ml Vl SQ 1 unit ACHS LARA Administration Protocol Latanoprost 1 drops 10/27/24 21:00 10/27/24 20:03 Latanoprost 0.005% Ophth Drops 2.5 Ml Btl BOTH EYES 1 drops HS LARA Administration Levofloxacin 750 mg 10/27/24 06:00 10/28/24 05:32 Levofloxacin 750 Mg Tab PO 750 mg Q24H LARA Administration Protocol Loratadine 10 mg 10/28/24 09:00 10/28/24 08:00 Loratadine 10 Mg Tab PO 10 mg DAILY LARA Administration Losartan Potassium 50 mg 10/27/24 21:00 10/27/24 19:52 Losartan 50 Mg Tab PO 50 mg HS LARA Administration Methylprednisolone Sodium Succinate 60 mg 10/27/24 00:00 10/28/24 05:32 Methylprednisolone Sod Succi 125 Mg/2 Ml Vial IV 60 mg Q6HR LARA Administration Montelukast Sodium 10 mg 10/27/24 21:00 10/27/24 19:52 Montelukast 10 Mg Tab PO 10 mg HS LARA Administration Morphine Sulfate 4 mg 10/27/24 01:52 Morphine Sulfate 4 Mg/Ml Syringe IV Q4HR PRN Severe Pain (Scale 7 to 10) Naloxone HCl 0.2 mg 10/27/24 01:52 Naloxone 0.4 Mg/Ml 1 Ml Vial IV Q2M PRN Opioid Reversal Intake and Output 10/27/24 10/28/24 10/28/24 22:59 06:59 14:59 Intake Total 100 160.554 Balance 100 160.554 Intake: Intake, IV Titration 160.554 Amount Amiodarone 360 mg In 160.554 Dextrose 5% in Water 200 ml @ 1 MG/MIN 33.333 mls/ hr IV .Q6H ONE Rx#: [id number] Oral 100 0 Other: Voiding Method Toilet # Voids 1 1 Weight 68.039 kg 10/28/24 04:12 10/28/24 04:12
[2024-10-28 11:48] LABS: Glucose,Whole Blood 128 mg/dL (70-110)
--- NOTE | 2024-10-28 14:26 | P.PN ---
Subjective Progress Note Date: 10/28/24 69-year-old female with past medical history significant for severe persistent asthma, history of Pseudomonas infection in the past, tracheobronchomalacia, hypertension osteoarthritis, sleep apnea, history of SVTs, atrial fibrillation on Eliquis history of allergic rhinitis, hypothyroidism who presented to ER with a complaint of difficulty breathing, lightheadedness, chest tightness. Patient reported that she was unable to take deep breaths with severe wheezing. Patient denied any fever or chills, denied any productive cough. Patient denied any headache, vision changes, sore throat, nausea vomiting diarrhea constipation abdominal pain dysuria urgency frequency weakness or numbness of extremities. Patient is afebrile, heart rate 74, respiratory rate 16, blood pressure 104/62, saturating 94% on room air. WBCs 13.3 hemoglobin 14.3, platelet 388. INR 0.9. CMP unremarkable. Troponin remained negative x 3. Influenza RSV and COVID PCR negative. Chest x-ray showed changes of COPD, small bilateral pleural effusions 10/28. Patient seen and examined. Lab work done and reviewed showed WBC 12.77, hemoglobin 12.1, sodium 170 potassium 3.8, BUN 14, creatinine 0.46. Breathing is improved, currently not requiring any oxygen. REVIEW OF SYSTEMS: CONSTITUTIONAL: No fever, no malaise,. CARDIOVASCULAR: No chest pain, no palpitations, no syncope. PULMONARY: No shortness of breath, no cough, GASTROINTESTINAL: No diarrhea, no nausea, no vomiting, no abdominal pain. NEUROLOGICAL: No headaches, no weakness, PHYSICAL EXAMINATION: GENERAL: The patient is alert and oriented x3, not in any acute distress. Well developed, well nourished. HEENT: Pupils are round and equally reacting to light. EOMI. No scleral icterus. No conjunctival pallor. Normocephalic, atraumatic. No pharyngeal erythema. No thyromegaly. CARDIOVASCULAR: S1 and S2 present. No murmurs, rubs, or gallops. PULMONARY: Coarse breath sounds bilaterally, no wheezing or crackles. ABDOMEN: Soft, nontender, nondistended, normoactive bowel sounds. No palpable organomegaly. MUSCULOSKELETAL: No joint swelling or deformity. EXTREMITIES: No cyanosis, clubbing, or pedal edema. NEUROLOGICAL: Gross neurological examination did not reveal any focal deficits. SKIN: No rashes. Assessment and plan Exacerbation of severe persistent asthma: History of tracheobronchomalacia History of pseudomonal infections Leukocytosis Eosinophilic asthma receives transpire injections Allergic rhinitis Presented with worsening shortness of breath, wheezing, cough. Chest x-ray showed COPD, small bilateral pleural effusions. Continue bronchodilators Continue Solu-Medrol Sputum cultures Empiric antibiotics Levaquin Pulmonary consulted and following Paroxysmal atrial fibrillation: Recently diagnosed with atrial fibrillation Continue Cardizem, Eliquis Cardiology evaluated, their notes reviewed and recommendations noted from 10/28, recommended discontinuing Cardizem and amiodarone, added as needed atenolol Hypothyroidism: Synthroid Hypertension: Losartan, Cardizem. Anxiety: Xanax as needed DVT prophylaxis Anticoagulated Labs and medication were reviewed.. Continue same treatment. Continue with symptomatic treatment. Resume home medication. Monitor labs and vitals. DVT and GI prophylaxis. Further recommendations as per clinical course of the patient Dictation was produced using [employer] dictation software. please excuse any grammatical, word or spelling errors. Objective - Vital Signs Vital signs: Vital Signs Temp 98 F 10/28/24 08:00 Pulse 80 10/28/24 12:00 Resp 16 10/28/24 12:00 BP 108/67 10/28/24 12:00 Pulse Ox 97 10/28/24 12:00 FiO2 Intake & Output 10/27/24 10/28/24 10/28/24 18:59 06:59 18:59 Intake Total 100 160.554 Balance 100 160.554 Weight 68.039 kg Intake: Intake, IV Titration 160.554 Amount Amiodarone 360 mg In 160.554 Dextrose 5% in Water 200 ml @ 1 MG/MIN 33.333 mls/ hr IV .Q6H ONE Rx#: [id number] Oral 100 0 Other: Voiding Method Toilet # Voids 1 - Labs CBC & Chem 7: 10/28/24 04:12 10/28/24 04:12 Labs: Abnormal Lab Results - Last 24 Hours (Table) 10/27/24 10/27/24 10/28/24 Range/Units 17:38 19:51 04:12 WBC 12.77 H (4.50-10.00) 10*3/uL Hct 36.2 L (37.2-46.3) % Immature Gran # 0.06 H (0.00-0.04) 10*3/uL Neutrophils # 11.20 H (1.80-7.70) 10*3/uL Eosinophils # 0.00 L (0.04-0.35) 10*3/uL Carbon Dioxide (22-30) mmol/L Creatinine (0.52-1.04) mg/dL Glucose (74-99) mg/dL POC Glucose (mg/dL) 161 H 174 H (70-110) mg/dL Total Protein (6.3-8.2) g/dL Albumin (3.5-5.0) g/dL 10/28/24 10/28/24 10/28/24 Range/Units 04:12 06:13 11:46 WBC (4.50-10.00) 10*3/uL Hct (37.2-46.3) % Immature Gran # (0.00-0.04) 10*3/uL Neutrophils # (1.80-7.70) 10*3/uL Eosinophils # (0.04-0.35) 10*3/uL Carbon Dioxide 21 L (22-30) mmol/L Creatinine 0.46 L (0.52-1.04) mg/dL Glucose 166 H (74-99) mg/dL POC Glucose (mg/dL) 160 H 128 H (70-110) mg/dL Total Protein 5.6 L (6.3-8.2) g/dL Albumin 3.2 L (3.5-5.0) g/dL
[2024-10-28 16:18] LABS: Glucose,Whole Blood 157 mg/dL (70-110)
--- NOTE | 2024-10-28 17:58 | P.PN ---
Subjective Progress Note Date: 10/28/24 Patient is 69-year-old female with past medical history significant for severe persistent asthma, tracheobronchomalacia, and previous Pseudomonas infections. Also, has history of allergic rhinitis, hypertension, hypothyroidism, and recent diagnosis of atrial fibrillation. She is anticoagulated on Eliquis. Patient presented emergency department yesterday afternoon with complaints of difficulty in breathing, lightheadedness, chest tightness. Reportedly, could not take a deep breath with severe wheezing. Chest x-ray showing hyperinflation. Possible small pleural effusions. NT proBNP only 938. CBC WBC count of 13.4, hemoglobin 14.3, platelets 388. D-dimer not clinically significant at 0.25. CMP unremarkable, electrolytes WDL, creatinine 0.65, glucose 97, lactic 1.2. Troponin less than 0.012. EKG: Normal sinus rhythm, with frequent unifocal PVCs. No acute ST segment elevations or T wave inversions. Patient previously loaded with IV Solu-Medrol and given multiple DuoNeb treatments. She is currently being evaluated in the emergency department. On room air. Wheezing and bronchospastic. Endorses productive cough, with yellow sputum. Denies fevers/chills. Denies nausea, vomiting, diarrhea. No rashes. Recent plane traveling to [place], [facility] in September. States she did get sick when she came back. Was treated with a combination of prednisone and doxycycline outpatient. She sees Dr. Knight in the pulmonary office. She also follows with a asthma specialist at the [facility], Dr. Barone. She is on Trezpire injections every 4 weeks. Also, uses a Trelegy inhaler. Was on Airsupra inhaler but stopped this because she felt it caused her atrial fibrilla tion. Which was reportedly found on event monitor. She is seeing Dr. Crain. Recently, was on metoprolol, however, this was discontinued. Last week was placed on Cardizem. Denies any chest pain. Denies heart palpitations. Denies syncopal events. Denies any lower extremity edema. Reportedly, had esophagogram 3 days ago. Was told she has a hiatal hernia. Currently, rhythm appears normal sinus on bedside monitor. Vitals are stable. The patient is feeling improved compared to yesterday. She feels less bronchospastic and wheezy. She was supposed to have a bronchoscopy today and this was postponed till tomorrow. Meanwhile a CAT scan of the chest was done and the patient will 10/28/2024, the patient is being seen for a follow-up. Continues to have some right lower lobe and lingular tree-in-bud nodular opacities in addition to areas of bronchiectasis involving the lower lobes bilaterally. There is similar scarring opacity within the right midlung that dates back to 2021. No fever. No chills. White cell count of 12.7 with a hematoma 0.1 and a platelet count of 382. Electrolytes are normal. Renal function is normal. LFTs are normal. Remains on Symbicort, albuterol nebulizer treatments 4 times a day, IV Solu-Medrol and Singulair. She is also on oral Levaquin 750 mg p.o. daily. Sputum sample was sent and results are still pending for now. Objective - Vital Signs Vital signs: Vital Signs Temp 98 F 10/28/24 08:00 Pulse 83 10/28/24 09:40 Resp 18 10/28/24 09:40 BP 121/73 10/28/24 08:00 Pulse Ox 96 10/28/24 09:32 FiO2 Intake & Output 10/27/24 10/28/24 10/28/24 18:59 06:59 18:59 Intake Total 100 160.554 Balance 100 160.554 Weight 68.039 kg Intake: Intake, IV Titration 160.554 Amount Amiodarone 360 mg In 160.554 Dextrose 5% in Water 200 ml @ 1 MG/MIN 33.333 mls/ hr IV .Q6H ONE Rx#: [id number] Oral 100 0 Other: Voiding Method Toilet # Voids 1 - Exam GENERAL EXAM: Alert, 69-year-old female, comfortable in no apparent distress. HEAD: Normocephalic and atraumatic EYES: Normal reaction of pupils, equal size. NOSE: Clear with pink turbinates. THROAT: No erythema or exudates. NECK: No masses, no JVD. CHEST: No chest wall deformity. LUNGS: Equal air entry with diffuse inspiratory and expiratory wheezing and scattered rhonchi. On room air. Bronchospastic cough.. CVS: S1 and S2 normal with no audible murmur, regular rhythm. No extra heart sounds ABDOMEN: No hepatosplenomegaly, active bowel sounds, no guarding or rigidity. SPINE: No scoliosis or deformity SKIN: No rashes CENTRAL NERVOUS SYSTEM: No focal deficits, tone is normal in all 4 extremities. EXTREMITIES: There is no peripheral edema, clubbing, or cyanosis. Peripheral pulses are intact. - Labs CBC & Chem 7: 10/28/24 04:12 10/28/24 04:12 Labs: Abnormal Lab Results - Last 24 Hours (Table) 10/27/24 10/27/24 10/28/24 Range/Units 17:38 19:51 04:12 WBC 12.77 H (4.50-10.00) 10*3/uL Hct 36.2 L (37.2-46.3) % Immature Gran # 0.06 H (0.00-0.04) 10*3/uL Neutrophils # 11.20 H (1.80-7.70) 10*3/uL Eosinophils # 0.00 L (0.04-0.35) 10*3/uL Carbon Dioxide (22-30) mmol/L Creatinine (0.52-1.04) mg/dL Glucose (74-99) mg/dL POC Glucose (mg/dL) 161 H 174 H (70-110) mg/dL Total Protein (6.3-8.2) g/dL Albumin (3.5-5.0) g/dL 10/28/24 10/28/24 Range/Units 04:12 06:13 WBC (4.50-10.00) 10*3/uL Hct (37.2-46.3) % Immature Gran # (0.00-0.04) 10*3/uL Neutrophils # (1.80-7.70) 10*3/uL Eosinophils # (0.04-0.35) 10*3/uL Carbon Dioxide 21 L (22-30) mmol/L Creatinine 0.46 L (0.52-1.04) mg/dL Glucose 166 H (74-99) mg/dL POC Glucose (mg/dL) 160 H (70-110) mg/dL Total Protein 5.6 L (6.3-8.2) g/dL Albumin 3.2 L (3.5-5.0) g/dL Assessment and Plan Assessment: Exacerbation of severe persistent asthma Chronic bronchiectatic changes in the lung bases, bilateral and chronic pulmonary infiltrated/scaring Acute dyspnea, secondary to above Tracheobronchomalacia Previous pseudomonal infections Acute leukocytosis Eosinophilic asthma, receives Trezspire injections on outpatient basis History of allergic rhinitis Hypertension Paroxysmal atrial fibrillation, is anticoagulated on Eliquis outpatient, currently normal sinus rhythm History of hypothyroidism Anxiety Plan: We will continue same treatment for now. Continue bronchodilators IV Solu-Medrol Symbicort inhaler, may substitute for Trelegy inhaler if made available Sputum culture pending Levaquin 750 mg daily, emperic antibiotic coverage bronchoscopy with BAL in am CT of the chest noted Keep n.p.o. after midnight. Passive bronchoscopy in AM. Time with Patient: Greater than 30
[2024-10-28 20:22] LABS: Glucose,Whole Blood 164 mg/dL (70-110)
[2024-10-29 06:07] LABS: Glucose,Whole Blood 177 mg/dL (70-110)
[2024-10-29] MEDS: LACTATED RINGERS 1,000 ML IV ONE (06:55)
[2024-10-29] MEDS ORDERED: MIDAZOLAM 2 MG/2 ML VIAL ONE (07:00)
[2024-10-29] MEDS ORDERED: PROPOFOL 10 MG/ML 20 ML VIAL IV ONE (07:00)
[2024-10-29] MEDS ORDERED: LIDOCAINE 1% INJ 10MG/ML (20 ML MDV) ONE (07:00)
[2024-10-29] MEDS: LIDOCAINE 2% INJ 20 MG/ML INTRATRACH ONE (07:22)
--- NOTE | 2024-10-29 07:28 | P.PN ---
Subjective Progress Note Date: 10/29/24 Patient is 69-year-old female with past medical history significant for severe persistent asthma, tracheobronchomalacia, and previous Pseudomonas infections. Also, has history of allergic rhinitis, hypertension, hypothyroidism, and recent diagnosis of atrial fibrillation. She is anticoagulated on Eliquis. Patient presented emergency department yesterday afternoon with complaints of difficulty in breathing, lightheadedness, chest tightness. Reportedly, could not take a deep breath with severe wheezing. Chest x-ray showing hyperinflation. Possible small pleural effusions. NT proBNP only 938. CBC WBC count of 13.4, hemoglobin 14.3, platelets 388. D-dimer not clinically significant at 0.25. CMP unremarkable, electrolytes WDL, creatinine 0.65, glucose 97, lactic 1.2. Troponin less than 0.012. EKG: Normal sinus rhythm, with frequent unifocal PVCs. No acute ST segment elevations or T wave inversions. Patient previously loaded with IV Solu-Medrol and given multiple DuoNeb treatments. She is currently being evaluated in the emergency department. On room air. Wheezing and bronchospastic. Endorses productive cough, with yellow sputum. Denies fevers/chills. Denies nausea, vomiting, diarrhea. No rashes. Recent plane traveling to [place], [facility] in September. States she did get sick when she came back. Was treated with a combination of prednisone and doxycycline outpatient. She sees Dr. Knight in the pulmonary office. She also follows with a asthma specialist at [facility], Dr. Barone. She is on Trezpire injections every 4 weeks. Also, uses a Trelegy inhaler. Was on Airsupra inhaler but stopped this because she felt it caused her atrial fibrilla tion. Which was reportedly found on event monitor. She is seeing Dr. Crain. Recently, was on metoprolol, however, this was discontinued. Last week was placed on Cardizem. Denies any chest pain. Denies heart palpitations. Denies syncopal events. Denies any lower extremity edema. Reportedly, had esophagogram 3 days ago. Was told she has a hiatal hernia. Currently, rhythm appears normal sinus on bedside monitor. Vitals are stable. The patient is feeling improved compared to yesterday. She feels less bronchospastic and wheezy. She was supposed to have a bronchoscopy today and this was postponed till tomorrow. Meanwhile a CAT scan of the chest was done and the patient will 10/28/2024, the patient is being seen for a follow-up. Continues to have some right lower lobe and lingular tree-in-bud nodular opacities in addition to areas of bronchiectasis involving the lower lobes bilaterally. There is similar scarring opacity within the right midlung that dates back to 2021. No fever. No chills. White cell count of 12.7 with a hematoma 0.1 and a platelet count of 382. Electrolytes are normal. Renal function is normal. LFTs are normal. Remains on Symbicort, albuterol nebulizer treatments 4 times a day, IV Solu-Medrol and Singulair. She is also on oral Levaquin 750 mg p.o. daily. Sputum sample was sent and results are still pending for now. 10/29/2024, the patient is being seen for a follow-up. The patient is currently n.p.o. and getting prepared for a bronchoscopy. Seems to be more stable compared to yesterday. Less mucus spastic and wheezy. Continues to have a congested cough. Unable to produce much of sputum. CAT scan of the chest was noted. Remains on bronchodilators. Remains on steroids. Remains on IV Solu- Medrol 60 mg every 6 hours. No other changes in her medication. The white cell count from yesterday was 4.7 with a hemoglobin 12.1. Electrolytes are all within normal limits. Normal renal function. CAT scan of the chest was noted. The patient remains on oral Levaquin. Objective - Vital Signs Vital signs: Vital Signs Temp 97.6 F 10/29/24 04:40 Pulse 76 10/29/24 06:23 Resp 17 10/29/24 04:40 BP 114/69 10/29/24 04:40 Pulse Ox 97 10/29/24 04:40 FiO2 Intake & Output 10/28/24 10/29/24 10/29/24 18:59 06:59 18:59 Intake Total 818.554 100 Balance 818.554 100 Weight 73.7 kg Intake: IV 100 Intake, IV Titration 160.554 Amount Amiodarone 360 mg In 160.554 Dextrose 5% in Water 200 ml @ 1 MG/MIN 33.333 mls/ hr IV .Q6H ONE Rx#: [id number] Oral 658 Other: Voiding Method Toilet Toilet # Voids 1 1 - Exam GENERAL EXAM: Alert, 69-year-old female, comfortable in no apparent distress. HEAD: Normocephalic and atraumatic EYES: Normal reaction of pupils, equal size. NOSE: Clear with pink turbinates. THROAT: No erythema or exudates. NECK: No masses, no JVD. CHEST: No chest wall deformity. LUNGS: Equal air entry with diffuse inspiratory and expiratory wheezing and scattered rhonchi. On room air. Bronchospastic cough.. CVS: S1 and S2 normal with no audible murmur, regular rhythm. No extra heart sounds ABDOMEN: No hepatosplenomegaly, active bowel sounds, no guarding or rigidity. SPINE: No scoliosis or deformity SKIN: No rashes CENTRAL NERVOUS SYSTEM: No focal deficits, tone is normal in all 4 extremities. EXTREMITIES: There is no peripheral edema, clubbing, or cyanosis. Peripheral pulses are intact. - Labs CBC & Chem 7: 10/28/24 04:12 10/28/24 04:12 Labs: Abnormal Lab Results - Last 24 Hours (Table) 10/28/24 10/28/24 10/28/24 Range/Units 11:46 16:17 20:21 POC Glucose (mg/dL) 128 H 157 H 164 H (70-110) mg/dL 10/29/24 Range/Units 06:06 POC Glucose (mg/dL) 177 H (70-110) mg/dL Microbiology - Last 24 Hours (Table) 10/27/24 19:20 Gram Stain - Preliminary Sputum Assessment and Plan Assessment: Exacerbation of severe persistent asthma Chronic bronchiectatic changes in the lung bases, bilateral and chronic pulmon jase infiltrated/scaring Acute dyspnea, secondary to above Tracheobronchomalacia Previous pseudomonal infections Acute leukocytosis Eosinophilic asthma, receives Trezspire injections on outpatient basis History of allergic rhinitis Hypertension Paroxysmal atrial fibrillation, is anticoagulated on Eliquis outpatient, currently normal sinus rhythm History of hypothyroidism Anxiety Plan: Clinically improving We will continue same treatment for now. Continue bronchodilators IV Solu-Medrol Symbicort inhaler, may substitute for Trelegy inhaler if made available Sputum culture pending Levaquin 750 mg daily, emperic antibiotic coverage bronchoscopy with BAL in am CT of the chest noted Will proceed with bronchoscopy and bronchoalveolar lavage
--- NOTE | 2024-10-29 07:35 | P.PCN ---
Date of Procedure: 10/29/24 Operative Findings: Preoperative Diagnosis: Asthma exacerbation Lower lobe bronchiectasis, bilateral Postoperative Diagnosis: Asthma exacerbation Lower lobe bronchiectasis, bilateral Tracheobronchomalacia Mucous plugs involving the lower lobes Procedure(s) Performed: Flexible bronchoscopy / bronchoalveolar lavage Anesthesia: MAC Surgeon: Marvin Dolan Estimated Blood Loss (ml): 0 Pathology: other Condition: stable Disposition: floor Operative Findings: The procedure was done in endoscopy suite. A consent was signed. A timeout was performed. Anesthetic agents by [facility] The flexible bronchoscope was introduced through the left nostril and was advanced into the upper airway. Examination of the posterior pharynx, larynx, epiglottis and the vocal cords was done. There was evidence of candidiasis involving the laryngeal wall. This was covering the epiglottis and the vallecula. The vocal cords function and mobility was within normal limits. No lesions. No nodules. A total of 2 cc of 1% lidocaine was applied to the vocal cord and following that the bronchoscope was advanced into the upper trachea. Immediately, moderate amount of purulent respiratory secretions were encountered throughout the patient's airway most abundant in the right lower lobe. Therapeutic airway suctioning was done and a total of 10 cc of purulent respiratory secretions were aspirated and suctioned out without any major difficulties. Airway inspection was completed. Underlying bronchial mucosa was inflamed and erythematous. Nevertheless, the airways were patent post therapeutic airway suctioning. Distal trachea, bilateral mainstem bronchi, right upper lobe bronchus, bronchus intermedius, right middle lobe and right lower bronchus and the various 10 segments on the right in addition to the left mainstem bronchus, left upper lobe bronchus and left lower lobe bronchus and the various 8 segments on the left were all inspected. No endobronchial tumors or lesions.. At the completion of the procedure, there was adequate airway patency and the patient's hospital secretions were suctioned out. A BAL of the right lower lobe was done. A total of 40 cc of saline was infused and 20 cc was aspirated. Procedure was terminated and the bronchoscope was removed. The BAL will be sent for cultures. On a separate note, there was evidence of tracheobronchomalacia throughout the airways. No oxygen desaturation and patient was hemodynamically stable throughout the procedure.
[2024-10-29] MEDS: FLUCONAZOLE 100 MG TAB PO SCH (08:09)
[2024-10-29 11:23] LABS: Glucose,Whole Blood 127 mg/dL (70-110)
[2024-10-29] MEDS: DOCUSATE 100 MG CAP PO SCH (11:28)
--- NOTE | 2024-10-29 11:41 | P.EPCON ---
Electrophysiology Consult - EP Consult Electrophysiology Consult: 69-year-old female with paroxysmal atrial fibrillation that has failed treatment Difficult rate control On anticoagulationHas asthma along with lower lobe bronchiectasis, and mucous plugging of the lower lobes No endobronchial masses or tumors Secretions were suctioned out culture sent Hypertension, on amlodipine and losartan Intolerant of metoprolol Plan Once her pulmonary status stabilizes I would proceed with A-fib ablation with cryoablation of the pulmonary veins As needed use of atenolol Intolerant of metoprolol Avoid amiodarone Continue anticoagulation with Eliquis Check TSH, sent
--- NOTE | 2024-10-29 14:09 | P.PN ---
Subjective Progress Note Date: 10/29/24 69-year-old female with past medical history significant for severe persistent asthma, history of Pseudomonas infection in the past, tracheobronchomalacia, hypertension osteoarthritis, sleep apnea, history of SVTs, atrial fibrillation on Eliquis history of allergic rhinitis, hypothyroidism who presented to ER with a complaint of difficulty breathing, lightheadedness, chest tightness. Patient reported that she was unable to take deep breaths with severe wheezing. Patient denied any fever or chills, denied any productive cough. Patient denied any headache, vision changes, sore throat, nausea vomiting diarrhea constipation abdominal pain dysuria urgency frequency weakness or numbness of extremities. Patient is afebrile, heart rate 74, respiratory rate 16, blood pressure 104/62, saturating 94% on room air. WBCs 13.3 hemoglobin 14.3, platelet 388. INR 0.9. CMP unremarkable. Troponin remained negative x 3. Influenza RSV and COVID PCR negative. Chest x-ray showed changes of COPD, small bilateral pleural effusions 10/28. Patient seen and examined. Lab work done and reviewed showed WBC 12.77, hemoglobin 12.1, sodium 170 potassium 3.8, BUN 14, creatinine 0.46. Breathing is improved, currently not requiring any oxygen. . Patient seen and examined. Patient underwent Flexible bronchoscopy / bronchoalveolar lavage by pulmonary this morning. States she feels better. Still complaining of cough and shortness of breath REVIEW OF SYSTEMS: CONSTITUTIONAL: No fever, no malaise,. CARDIOVASCULAR: No chest pain, no palpitations, no syncope. PULMONARY: No shortness of breath, no cough, GASTROINTESTINAL: No diarrhea, no nausea, no vomiting, no abdominal pain. NEUROLOGICAL: No headaches, no weakness, PHYSICAL EXAMINATION: GENERAL: The patient is alert and oriented x3, not in any acute distress. Well developed, well nourished. HEENT: Pupils are round and equally reacting to light. EOMI. No scleral icterus. No conjunctival pallor. Normocephalic, atraumatic. No pharyngeal erythema. No thyromegaly. CARDIOVASCULAR: S1 and S2 present. No murmurs, rubs, or gallops. PULMONARY: Coarse breath sounds bilaterally, expiratory wheeze audible ABDOMEN: Soft, nontender, nondistended, normoactive bowel sounds. No palpable organomegaly. MUSCULOSKELETAL: No joint swelling or deformity. EXTREMITIES: No cyanosis, clubbing, or pedal edema. NEUROLOGICAL: Gross neurological examination did not reveal any focal deficits. SKIN: No rashes. Assessment and plan Exacerbation of severe persistent asthma: History of tracheobronchomalacia History of pseudomonal infections Leukocytosis Eosinophilic asthma receives transpire injections Allergic rhinitis Presented with worsening shortness of breath, wheezing, cough. Chest x-ray showed COPD, small bilateral pleural effusions. Status post flexible bronchoscopy/bronchial lavage on 10/29 Continue bronchodilators Continue Solu-Medrol Sputum cultures Empiric antibiotics Levaquin Pulmonary consulted and following Paroxysmal atrial fibrillation: Recently diagnosed with atrial fibrillation Continue Cardizem, Eliquis Cardiology evaluated, their notes reviewed and recommendations noted from 10/28, recommended discontinuing Cardizem and amiodarone, added as needed atenolol Hypothyroidism: Synthroid Hypertension: Losartan, Cardizem. Anxiety: Xanax as needed DVT prophylaxis Anticoagulated Labs and medication were reviewed.. Continue same treatment. Continue with symptomatic treatment. Resume home medication. Monitor labs and vitals. DVT and GI prophylaxis. Further recommendations as per clinical course of the patient Dictation was produced using [employer] dictation software. please excuse any grammatical, word or spelling errors. Objective - Vital Signs Vital signs: Vital Signs Temp 97.6 F 10/29/24 08:00 Pulse 89 10/29/24 11:50 Resp 18 10/29/24 11:50 BP 159/75 10/29/24 11:50 Pulse Ox 97 10/29/24 11:50 FiO2 21 10/29/24 11:30 Intake & Output 10/28/24 10/29/24 10/29/24 18:59 06:59 18:59 Intake Total 818.554 100 Balance 818.554 100 Weight 73.7 kg Intake: IV 100 Intake, IV Titration 160.554 Amount Amiodarone 360 mg In 160.554 Dextrose 5% in Water 200 ml @ 1 MG/MIN 33.333 mls/ hr IV .Q6H ONE Rx#: [id number] Oral 658 Other: Voiding Method Toilet Toilet Toilet # Voids 1 1 - Labs CBC & Chem 7: 10/28/24 04:12 10/28/24 04:12 Labs: Abnormal Lab Results - Last 24 Hours (Table) 10/28/24 10/28/24 10/29/24 Range/Units 16:17 20:21 06:06 POC Glucose (mg/dL) 157 H 164 H 177 H (70-110) mg/dL 10/29/24 Range/Units 11:21 POC Glucose (mg/dL) 127 H (70-110) mg/dL Microbiology - Last 24 Hours (Table) 10/27/24 19:20 Gram Stain - Preliminary Sputum
[2024-10-29] MEDS: MEROPENEM 2 GM in SODIUM CHLORIDE 0.9% 100 ML IVPB SCH (16:17)
[2024-10-29 16:22] LABS: Glucose,Whole Blood 128 mg/dL (70-110)
[2024-10-29 20:08] LABS: Glucose,Whole Blood 137 mg/dL (70-110)
[2024-10-29] MEDS: ZOLPIDEM 5 MG TAB PO PRN (23:20)
[2024-10-30 06:16] LABS: Glucose,Whole Blood 128 mg/dL (70-110)
--- NOTE | 2024-10-30 07:07 | P.PN ---
Subjective Progress Note Date: 10/29/24 The patient is a 69-year-old female who is currently admitted to the hospital with acute asthma exacerbation as well as A-fib with RVR. Patient underwent bronchoscopy with Dr. Vargas, where purulent drainage was found and she was found to have tracheomalacia. Patient interviewed and examined resting comfortably in bed. She does have rhonchi and bilateral inspiratory wheezes. She states she is feeling much better after her bronchoscopy in terms of her breathing. No chest pain or pressure. GENERAL: Well-appearing, well-nourished and in no acute distress. NECK: Supple without JVD or thyromegaly. LUNGS: Breath sounds clear to auscultation bilaterally. Respiration equal and unlabored. No wheezes, rales or rhonchi. HEART: Regular rate and rhythm without murmurs, rubs or gallops. S1 and S2 hear d. EXTREMITIES: Normal range of motion, no edema. No clubbing or cyanosis. Peripheral pulses intact and strong. TELEMETRY: Sinus rhythm overnight IMPRESSION: Acute asthma exacerbation Paroxysmal atrial fibrillation with RVR History of PVCs History of atrial tachycardia Hypertension Hyperlipidemia History of nonischemic cardiomyopathy with recovered EF History of SVT Known left bundle branch block Diabetes PLAN: Patient may be discharged from the cardiac standpoint Outpatient follow-up with Dr. Crain Once pulmonary issues have improved, recommend follow-up with Dr. Lopez to discuss ablation I am dictating on behalf of Dr Giacomo Lopez's history/physical and assessment/plan. Objective - Vital Signs Vital signs: Vital Signs Temp 97.6 F 10/29/24 04:40 Pulse 76 10/29/24 06:23 Resp 17 10/29/24 04:40 BP 114/69 10/29/24 04:40 Pulse Ox 97 10/29/24 04:40 FiO2 Intake & Output 10/28/24 10/29/24 10/29/24 18:59 06:59 18:59 Intake Total 818.554 100 Balance 818.554 100 Weight 73.7 kg Intake: IV 100 Intake, IV Titration 160.554 Amount Amiodarone 360 mg In 160.554 Dextrose 5% in Water 200 ml @ 1 MG/MIN 33.333 mls/ hr IV .Q6H ONE Rx#: [id number] Oral 658 Other: Voiding Method Toilet Toilet # Voids 1 1 - Labs CBC & Chem 7: 10/28/24 04:12 10/28/24 04:12 Labs: Abnormal Lab Results - Last 24 Hours (Table) 10/28/24 10/28/24 10/28/24 Range/Units 11:46 16:17 20:21 POC Glucose (mg/dL) 128 H 157 H 164 H (70-110) mg/dL 10/29/24 Range/Units 06:06 POC Glucose (mg/dL) 177 H (70-110) mg/dL Microbiology - Last 24 Hours (Table) 10/27/24 19:20 Gram Stain - Preliminary Sputum
[2024-10-30 11:18] LABS: Glucose,Whole Blood 115 mg/dL (70-110)
[2024-10-30 12:33] LABS: T4, Free (Free Thyroxine) 1.3 ng/dL (0.78-2.19)
[2024-10-30 16:32] LABS: Glucose,Whole Blood 170 mg/dL (70-110)
--- NOTE | 2024-10-30 16:45 | P.PN ---
Subjective Progress Note Date: 10/30/24 69-year-old female with past medical history significant for severe persistent asthma, history of Pseudomonas infection in the past, tracheobronchomalacia, hypertension osteoarthritis, sleep apnea, history of SVTs, atrial fibrillation on Eliquis history of allergic rhinitis, hypothyroidism who presented to ER with a complaint of difficulty breathing, lightheadedness, chest tightness. Patient reported that she was unable to take deep breaths with severe wheezing. Patient denied any fever or chills, denied any productive cough. Patient denied any headache, vision changes, sore throat, nausea vomiting diarrhea constipation abdominal pain dysuria urgency frequency weakness or numbness of extremities. Patient is afebrile, heart rate 74, respiratory rate 16, blood pressure 104/62, saturating 94% on room air. WBCs 13.3 hemoglobin 14.3, platelet 388. INR 0.9. CMP unremarkable. Troponin remained negative x 3. Influenza RSV and COVID PCR negative. Chest x-ray showed changes of COPD, small bilateral pleural effusions 10/28. Patient seen and examined. Lab work done and reviewed showed WBC 12.77, hemoglobin 12.1, sodium 170 potassium 3.8, BUN 14, creatinine 0.46. Breathing is improved, currently not requiring any oxygen. . Patient seen and examined. Patient underwent Flexible bronchoscopy / bronchoalveolar lavage by pulmonary this morning. States she feels better. Still complaining of cough and shortness of breath 10/30. Patient seen and examined. Still complaining of shortness of breath on exertion. Denies any fever or chills. REVIEW OF SYSTEMS: CONSTITUTIONAL: No fever, no malaise,. CARDIOVASCULAR: No chest pain, no palpitations, no syncope. PULMONARY: No shortness of breath, no cough, as mentioned above GASTROINTESTINAL: No diarrhea, no nausea, no vomiting, no abdominal pain. NEUROLOGICAL: No headaches, no weakness, PHYSICAL EXAMINATION: GENERAL: The patient is alert and oriented x3, not in any acute distress. Well developed, well nourished. HEENT: Pupils are round and equally reacting to light. EOMI. No scleral icterus. No conjunctival pallor. Normocephalic, atraumatic. No pharyngeal erythema. No thyromegaly. CARDIOVASCULAR: S1 and S2 present. No murmurs, rubs, or gallops. PULMONARY: Coarse breath sounds bilaterally, expiratory wheeze audible ABDOMEN: Soft, nontender, nondistended, normoactive bowel sounds. No palpable organomegaly. MUSCULOSKELETAL: No joint swelling or deformity. EXTREMITIES: No cyanosis, clubbing, or pedal edema. NEUROLOGICAL: Gross neurological examination did not reveal any focal deficits. SKIN: No rashes. Assessment and plan Exacerbation of severe persistent asthma: History of tracheobronchomalacia History of pseudomonal infections Leukocytosis Eosinophilic asthma receives transpire injections Allergic rhinitis Presented with worsening shortness of breath, wheezing, cough. Chest x-ray showed COPD, small bilateral pleural effusions. Status post flexible bronchoscopy/bronchial lavage on 10/29 Sputum cultures growing nocardia Continue bronchodilators Continue Solu-Medrol Antibiotics were transitioned to meropenem Pulmonary consulted and following ID consulted Paroxysmal atrial fibrillation: Recently diagnosed with atrial fibrillation Continue Cardizem, Eliquis Cardiology evaluated, their notes reviewed and recommendations noted from 10/28, recommended discontinuing Cardizem and amiodarone, added as needed atenolol Hypothyroidism: Synthroid Hypertension: Losartan, Cardizem. Anxiety: Xanax as needed DVT prophylaxis Anticoagulated Labs and medication were reviewed.. Continue same treatment. Continue with symptomatic treatment. Resume home medication. Monitor labs and vitals. DVT and GI prophylaxis. Further recommendations as per clinical course of the patient Dictation was produced using [employer] dictation software. please excuse any grammatical, word or spelling errors. Objective - Vital Signs Vital signs: Vital Signs Temp 98.2 F 10/30/24 16:00 Pulse 72 10/30/24 16:11 Resp 18 10/30/24 16:00 BP 133/77 10/30/24 16:00 Pulse Ox 95 10/30/24 16:00 FiO2 21 10/30/24 08:11 Intake & Output 10/29/24 10/30/24 10/30/24 18:59 06:59 18:59 Intake Total 1110 20 1560 Balance 1110 20 1560 Weight 75.1 kg Intake: IV 20 Invasive Line 3 20 Oral 1110 1560 Other: Voiding Method Toilet Toilet Toilet # Voids 2 1 2 # Bowel Movements 1 - Labs CBC & Chem 7: 10/28/24 04:12 10/28/24 04:12 Labs: Abnormal Lab Results - Last 24 Hours (Table) 10/29/24 10/30/2410/30/25 Range/Units 20:06 06:13 11:17 POC Glucose (mg/dL) 137 H 128 H 115 H (70-110) mg/dL 10/30/24 Range/Units 16:31 POC Glucose (mg/dL) 170 H (70-110) mg/dL Microbiology - Last 24 Hours (Table) 10/29/24 07:20 Gram Stain - Preliminary Bronchoalviolar Lavage - Right Bronchial Washings Culture - Preliminary 10/27/24 19:20 Gram Stain - Final Sputum Sputum Culture - Final Nocardia cyriacigeorgica
--- NOTE | 2024-10-30 18:07 | CT ---
EXAMINATION TYPE: CT brain wo con CT DLP: 1123.4 mGycm, Automated exposure control for dose reduction was used. DATE OF EXAM: 10/30/2024 6:01 PM COMPARISON: None. CLINICAL INDICATION:Female, 69 years old with history of headache, nocordiasis, ABSCESS TECHNIQUE: Brain: Multiple axial CT images of the brain were obtained without IV contrast. . Coronal and sagitta l reformats reviewed. FINDINGS: Brain: Extra-axial spaces: No abnormal extra-axial fluid collections. Ventricular system: Within normal limits Cerebral parenchyma: Mild cerebral atrophy. No acute intraparenchymal hemorrhage or mass effect. The leyva-white junction is well differentiated. Scattered hypoattenuating areas are seen within the tiffani ventricular white matter. Remote lacunar infarct versus prominent perivascular space within the righ t basal ganglia. Cerebellum: Unremarkable. Mass effect: No evidence of midline shift. Intracranial vasculature: Atherosclerotic calcifications of the intracranial vessels. Soft tissues: Normal. Calvarium/osseous structures: No depressed skull fracture. Paranasal sinuses and mastoid air cells: Mastoid air cells are clear. Mild mucosal thickening of the visualized inferior right maxillary sinus. The remaining visualized paranasal sinuses are clear. Hypo plastic appearance of the left frontal sinus. Visualized orbits: Orbital contents are intact. IMPRESSION: 1. No acute intracranial process. 2. Nonspecific mild white matter changes, likely secondary to chronic small vessel ischemic disease. 3. Remote lacunar infarct versus prominent perivascular space within the right basal ganglia. [facility], , 10/30/2024 6:05 PM
--- NOTE | 2024-10-30 18:32 | P.PN ---
Subjective Progress Note Date: 10/30/24 Patient is 69-year-old female with past medical history significant for severe persistent asthma, tracheobronchomalacia, and previous Pseudomonas infections. Also, has history of allergic rhinitis, hypertension, hypothyroidism, and recent diagnosis of atrial fibrillation. She is anticoagulated on Eliquis. Patient presented emergency department yesterday afternoon with complaints of difficulty in breathing, lightheadedness, chest tightness. Reportedly, could not take a deep breath with severe wheezing. Chest x-ray showing hyperinflation. Possible small pleural effusions. NT proBNP only 938. CBC WBC count of 13.4, hemoglobin 14.3, platelets 388. D-dimer not clinically significant at 0.25. CMP unremarkable, electrolytes WDL, creatinine 0.65, glucose 97, lactic 1.2. Troponin less than 0.012. EKG: Normal sinus rhythm, with frequent unifocal PVCs. No acute ST segment elevations or T wave inversions. Patient previously loaded with IV Solu-Medrol and given multiple DuoNeb treatments. She is currently being evaluated in the emergency department. On room air. Wheezing and bronchospastic. Endorses productive cough, with yellow sputum. Denies fevers/chills. Denies nausea, vomiting, diarrhea. No rashes. Recent plane traveling to [place], [facility] in September. States she did get sick when she came back. Was treated with a combination of prednisone and doxycycline outpatient. She sees Dr. Knight in the pulmonary office. She also follows with a asthma specialist at the [facility], Dr. Barone. She is on Trezpire injections every 4 weeks. Also, uses a Trelegy inhaler. Was on Airsupra inhaler but stopped this because she felt it caused her atrial fibrilla tion. Which was reportedly found on event monitor. She is seeing Dr. Crain. Recently, was on metoprolol, however, this was discontinued. Last week was placed on Cardizem. Denies any chest pain. Denies heart palpitations. Denies syncopal events. Denies any lower extremity edema. Reportedly, had esophagogram 3 days ago. Was told she has a hiatal hernia. Currently, rhythm appears normal sinus on bedside monitor. Vitals are stable. The patient is feeling improved compared to yesterday. She feels less bronchospastic and wheezy. She was supposed to have a bronchoscopy today and this was postponed till tomorrow. Meanwhile a CAT scan of the chest was done and the patient will 10/28/2024, the patient is being seen for a follow-up. Continues to have some right lower lobe and lingular tree-in-bud nodular opacities in addition to areas of bronchiectasis involving the lower lobes bilaterally. There is similar scarring opacity within the right midlung that dates back to 2021. No fever. No chills. White cell count of 12.7 with a hematoma 0.1 and a platelet count of 382. Electrolytes are normal. Renal function is normal. LFTs are normal. Remains on Symbicort, albuterol nebulizer treatments 4 times a day, IV Solu-Medrol and Singulair. She is also on oral Levaquin 750 mg p.o. daily. Sputum sample was sent and results are still pending for now. 10/29/2024, the patient is being seen for a follow-up. The patient is currently n.p.o. and getting prepared for a bronchoscopy. Seems to be more stable compared to yesterday. Less mucus spastic and wheezy. Continues to have a congested cough. Unable to produce much of sputum. CAT scan of the chest was noted. Remains on bronchodilators. Remains on steroids. Remains on IV Solu- Medrol 60 mg every 6 hours. No other changes in her medication. The white cell count from yesterday was 4.7 with a hemoglobin 12.1. Electrolytes are all within normal limits. Normal renal function. CAT scan of the chest was noted. The patient remains on oral Levaquin. 10/30/2024, the patient is doing well. She continues to improve. Less bronchospastic and wheezy. Bronchoscopy was done. There is also still pending. Meanwhile, the patient's sputum sample was positive for nocardia and the patient was started on IV meropenem. Ideally, would like to put the patient on Bactrim. However, she thinks that she may have a sulfa allergy. She remains on bronchodilators. She remains on Symbicort. She remains on IV Solu-Medrol. She is also on transplant on outpatient basis. No new labs are available from today. He is doing well. She is currently on room air oxygen with a pulse ox of 95%. Objective - Vital Signs Vital signs: Vital Signs Temp 97.8 F 10/30/24 08:00 Pulse 72 10/30/24 08:22 Resp 18 10/30/24 08:00 BP 133/79 10/30/24 08:00 Pulse Ox 96 10/30/24 08:11 FiO2 21 10/30/24 08:11 Intake & Output 10/29/24 10/30/24 10/30/24 18:59 06:59 18:59 Intake Total 1110 20 780 Balance 1110 20 780 Weight 75.1 kg Intake: IV 20 Invasive Line 3 20 Oral 1110 780 Other: Voiding Method Toilet Toilet Toilet # Voids 2 1 # Bowel Movements 1 - Exam GENERAL EXAM: Alert, 69-year-old female, comfortable in no apparent distress. HEAD: Normocephalic and atraumatic EYES: Normal reaction of pupils, equal size. NOSE: Clear with pink turbinates. THROAT: No erythema or exudates. NECK: No masses, no JVD. CHEST: No chest wall deformity. LUNGS: Equal air entry with diffuse inspiratory and expiratory wheezing and scattered rhonchi. On room air. Bronchospastic cough.. CVS: S1 and S2 normal with no audible murmur, regular rhythm. No extra heart s ounds ABDOMEN: No hepatosplenomegaly, active bowel sounds, no guarding or rigidity. SPINE: No scoliosis or deformity SKIN: No rashes CENTRAL NERVOUS SYSTEM: No focal deficits, tone is normal in all 4 extremities. EXTREMITIES: There is no peripheral edema, clubbing, or cyanosis. Peripheral pulses are intact. - Labs CBC & Chem 7: 10/28/24 04:12 10/28/24 04:12 Labs: Abnormal Lab Results - Last 24 Hours (Table) 10/29/24 10/29/24 10/29/24 Range/Units 11:21 11:59 16:20 POC Glucose (mg/dL) 127 H 128 H (70-110) mg/dL TSH 0.118 L (0.465-4.680) mIU/L 10/29/24 10/30/24 10/30/24 Range/Units 20:06 06:13 11:17 POC Glucose (mg/dL) 137 H 128 H 115 H (70-110) mg/dL TSH (0.465-4.680) mIU/L Microbiology - Last 24 Hours (Table) 10/27/24 19:20 Gram Stain - Final Sputum Sputum Culture - Final Nocardia cyriacigeorgica Assessment and Plan Assessment: Exacerbation of severe persistent asthma, the patient is post bronchoscopy and a bronchial lavage. Results are still pending for now. 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 Chronic bronchiectatic changes in the lung bases, bilateral and chronic pulmonar y infiltrated/scaring Acute dyspnea, secondary to above Tracheobronchomalacia Previous pseudomonal infections Acute leukocytosis Eosinophilic asthma, receives Trezspire injections on outpatient basis History of allergic rhinitis Hypertension Paroxysmal atrial fibrillation, is anticoagulated on Eliquis outpatient, currently normal sinus rhythm History of hypothyroidism Anxiety Plan: Clinically improving Ideally, would like to put the patient on Bactrim. However, the patient thinks that she may have sulfa allergy. Based on that, I started the patient on IV meropenem, a second line agent for nocardia infection and this may also help her with any gram-negative infection that may arise. She has had previous history of pseudomonal infection many years back. Awaiting the results of the BAL. Continue bronchodilators IV Solu-Medrol, start tapering as of tomorrow Symbicort inhaler, may substitute for Trelegy inhaler if made available CT of the chest noted Will continue to follow.
[2024-10-30 19:45] LABS: Glucose,Whole Blood 199 mg/dL (70-110)
--- NOTE | 2024-10-30 22:32 | P.CONS ---
History of Present Illness - Reason for Consult Consult date: 10/30/24 Nocardiasis Requesting physician: Jose Polk - Chief Complaint Shortness of breath and cough x days - History of Present Illness Patient is a 69-year-old female with a past medical history significant for hypertension pneumonia osteoarthritis asthma SVT history of recurrent pneumonia patient mention has been antibiotic course to the last few months recently have traveled to [facility] and the train trip from [place] to [place] presented to the hospital 4 days ago on 10/26/2024 for evaluation of increasing shortness of breath intermittent chest pain and lightheadedness in this patient symptom has been getting worse for the last few days patient did have a cough moderate intensity bring up some yellow sputum no hemoptysis did have bilateral lower rib cage chest pain dull aching moderate without radiation patient did have some chills denies high-grade fever on presentation to the hospital patient was afebrile no fever have been recorded subsequently patient was nontachycardic hypotensive or hypoxic currently on room air patient did have a white count of 13.3 5 repeat is 12.27 creatinine 0.46 electrolyte has been normal liver enzymes are normal influenza RSV COVID testing has been negative patient did have a chest x-ray COPD small bilateral pleural effusion present patient did have a CT of the chest which did shows right lower lobe and lingular tree-in-bud opacities with additional right lower lobe 1 cm nodule opacity few scattered nodular opacities concerning for infectious proctocolitis patient has been evaluated by and the patient did have a bronchial lavage yesterday both cultures are pending initial cultures came back positive for Nocardia further infectious disease was consulted for further management of antibiotic therapy Review of Systems Positive point and negatives has been mentioned in the HPI, complete review of systems was performed and all other systems are negative Past Medical History Past Medical History: Asthma, Hypertension, Osteoarthritis (OA), Pneumonia, Skin Disorder, Sleep Apnea/CPAP/BIPAP, Supraventricular Tachycardia (SVT) Additional Past Medical History / Comment(s): Left BBB History of Any Multi-Drug Resistant Organisms: None Reported Past Surgical History: Adenoidectomy, Cholecystectomy, Hysterectomy, Joint Replacement, Orthopedic Surgery, Tonsillectomy Additional Past Surgical History / Comment(s): Bronchoscopy, rhinoplasty/devia salvador septum, right knee arthroscopy, bilateral knee replacements, vein stripping, left wrist surgery, A&P repair. Past Anesthesia/Blood Transfusion Reactions: Motion Sickness, Postoperative Nausea & Vomiting (PONV) Past Psychological History: Anxiety, Depression Smoking Status: Second hand smoke exposure, Never smoker Past Alcohol Use History: Occasional Past Drug Use History: None Reported - Past Family History Father Family Medical History: Deep Vein Thrombosis (DVT) Medications and Allergies Home Medications Medication Instructions Recorded Confirmed Type Albuterol Sulfate [Proventil Hfa] 2 puff INHALATION RT-Q6H PRN 09/08/13 10/27/24 History Montelukast [Singulair] 10 mg PO HS 09/08/13 10/27/24 History Progesterone, Micronized 100 mg PO HS 09/21/17 10/27/24 History [Progesterone] ALPRAZolam [Xanax] 0.5 mg PO DAILY PRN 07/01/21 10/27/24 History guaiFENesin [Mucinex] 600 mg PO BID 10 Days #20 tab 07/09/21 10/27/24 Rx Latanoprost [Latanoprost 0.005%] 1 drop BOTH EYES HS 05/27/24 10/27/24 History Losartan [Cozaar] 50 mg PO HS 05/27/24 10/27/24 History amLODIPine [Norvasc] 10 mg PO DAILY 05/27/24 10/27/24 History Albuterol Sulfate/Budesonide 2 puff INHALATION RT-Q4H PRN 10/27/24 10/27/24 History [Airsupra 90-80 Mcg Inhaler] Apixaban [Eliquis] 5 mg PO BID 10/27/24 10/27/24 History Cetirizine HCl [Zyrtec] 10 mg PO DAILY 10/27/24 10/27/24 History Fluticasone/Umeclidin/Vilanter 1 puff INHALATION RT-DAILY 10/27/24 10/27/24 History [Trelegy Ellipta 200-62.5-25] Tezepelumab-Ekko [Tezspire] 210 mg SQ Q28D 10/27/24 10/27/24 History dilTIAZem HCL [dilTIAZem HCL 24Hr 120 mg PO HS 10/27/24 10/27/24 History ER (CD)] metFORMIN HCL [Glucophage] 850 mg PO BID 10/27/24 10/27/24 History Allergies Allergy/AdvReac Type Severity Reaction Status Date / Time hydrochlorothiazide Allergy Rash/Hives Verified 10/27/24 12:09 Sulfa (Sulfonamide Allergy Rash/Hives Verified 10/27/24 12:09 Antibiotics) sulfamethoxazole Allergy Rash/Hives Verified 10/27/24 12:09 [From Bactrim] trimethoprim [From Bactrim] Allergy Rash/Hives/ Verified 10/27/24 12:09 fever/aches Physical Exam Vitals: Vital Signs Temp Pulse Pulse Resp BP Pulse Ox FiO2 10/30/24 11:55 72 10/30/24 11:40 68 10/30/24 11:24 69 16 136/78 94 L 10/30/24 08:22 72 10/30/24 08:11 69 96 21 10/30/24 08:00 97.8 F 68 18 133/79 96 10/30/24 04:50 97.5 F L 63 18 143/80 95 10/29/24 23:15 97.9 F 72 17 125/74 96 10/29/24 19:45 98 F 74 18 122/69 95 10/29/24 19:10 74 10/29/24 19:01 75 10/29/24 16:00 98.3 F 97 17 153/77 95 10/29/24 15:26 90 10/29/24 15:16 93 Intake and Output 10/29/24 10/30/24 10/30/24 22:59 06:59 14:59 Intake Total 437 90 1785 Balance 290 41 5502 Intake: IV 10 10 Invasive Line 3 10 10 Oral 250 1560 Other: Voiding Method Toilet Toilet Toilet # Voids 1 1 2 # Bowel Movements 1 Weight 75.1 kg GENERAL DESCRIPTION: Elderly female lying in bed, no distress. No tachypnea or accessory muscle of respiration use. HEENT: Shows Pallor , no scleral icterus. Oral mucous membrane is dry. No pharyngeal erythema or thrush NECK: Trachea central, no thyromegaly. LUNGS: Unlabored breathing. Coarse breath sounds bilateral occasional wheeze HEART: S1, S2, regular rate and rhythm. No loud murmur ABDOMEN: Soft, no tenderness , guarding or rigidity, no organomegaly EXTREMITIES: No edema of feet. SKIN: No rash, no masses palpable. NEUROLOGICAL: The patient is awake, alert, oriented x3, mood and affect normal. Results CBC & Chem 7: 10/28/24 04:12 10/28/24 04:12 Labs: Abnormal Lab Results - Last 24 Hours (Table) 10/29/24 10/29/24 10/30/24 Range/Units 16:20 20:06 06:13 POC Glucose (mg/dL) 128 H 137 H 128 H (70-110) mg/dL 10/30/24 Range/Units 11:17 POC Glucose (mg/dL) 115 H (70-110) mg/dL Microbiology - Last 24 Hours (Table) 10/29/24 07:20 Gram Stain - Preliminary Bronchoalviolar Lavage - Right Bronchial Washings Culture - Preliminary 10/27/24 19:20 Gram Stain - Final Sputum Sputum Culture - Final Nocardia cyriacigeorgica Assessment and Plan (1) Nocardiosis Current Visit: Yes Status: Acute Code(s): A43.9 - NOCARDIOSIS, UNSPECIFIED SNOMED Code(s): 59712782 (2) Allergy to sulfa drugs Current Visit: Yes Status: Acute Code(s): Z88.2 - ALLERGY STATUS TO SULFONAMIDES SNOMED Code(s): 18396630 (3) Pneumonia Current Visit: Yes Status: Acute Code(s): J18.9 - PNEUMONIA, UNSPECIFIED ORGANISM SNOMED Code(s): 305614241 Plan: 1patient presented to hospital with increased shortness of breath cough sputum production in this patient who did have abnormality seen on the CT of the chest with right lower lobe as well as lingular opacities and sputum is growing n ocardia concerning for nocardia pneumonia patient also have some headache but no other feature but will need to make sure no evidence of any [employer] infection at this point. 2unfortunately patient allergic to sulfa which is the drug of choice for treatment of nocardiosis. 3patient started on meropenem 2 sugars yesterday 1 g every 8 hour. 4did call the micro lab to obtain sensitivities of this pathogen as the patient need to be on a long-term course of antibiotic for this likely. 5with the patient concern for recurrent pneumonia we will check immunoglobulin levels to make sure evidence of any immunoglobulin deficiency. Multiple questions asked and answered. We will follow on clinical condition and cultures to further adjust medication if needed Thank you for this consultation we will follow the patient along with you Dictation was produced using [employer] dictation software. please excuse any grammatical, word or spelling errors. Time with Patient: Greater than 30
[2024-10-30] MEDS: MEROPENEM 1 GM in SODIUM CHLORIDE 0.9% 100 ML IVPB SCH (23:44)
[2024-10-31] MEDS ORDERED: MEROPENEM 1 GM in SODIUM CHLORIDE 0.9% 100 ML IVPB SCH
[2024-10-31 05:44] LABS: Glucose,Whole Blood 140 mg/dL (70-110)
[2024-10-31 06:34] LABS: Basophils # (A) 0.03 10*3/uL (0.00-0.10); Basophils % (A) 0.3 %; Eosinophils # (A) 0.00 10*3/uL (0.04-0.35); Eosinophils % (A) 0.0 %; HCT 39.4 % (37.2-46.3); HGB 13.1 g/dL (12.0-15.0); Lymphocytes # (A) 0.85 10*3/uL (0.90-5.00); Lymphocytes % (A) 7.9 %; MCH 28.4 pg (27.0-32.0); MCHC 33.2 g/dL (32.0-37.0); MCV 85.5 fL (80.0-97.0); Monocytes # (A) 0.38 10*3/uL (0.20-1.00); Monocytes % (A) 3.5 %; Neutrophils # (A) 9.20 10*3/uL (1.80-7.70); Neutrophils % (A) 86.0 %; Platelet Count 376 10*3/uL (140-440); RBC 4.61 10*6/uL (4.10-5.20); RDW 14.3 % (11.5-14.5); WBC 10.71 10*3/uL (4.50-10.00)
[2024-10-31 06:54] LABS: ALT 15 U/L (4-34); AST 17 U/L (14-36); African American GFR (CKD) >90 (>60 ml/min/1.73 sqM); Albumin 3.5 g/dL (3.5-5.0); Alkaline Phosphatase 58 U/L (38-126); Anion Gap 9 mmol/L; Blood Urea Nitrogen 18 mg/dL (7-17); Calcium 8.8 mg/dL (8.4-10.2); Carbon Dioxide 25 mmol/L (22-30); Chloride 103 mmol/L (98-107); Glucose 143 mg/dL (74-99); Non-African American GFR(CKD) >90 (>60 ml/min/1.73 sqM); Potassium 4.1 mmol/L (3.5-5.1); Sodium 137 mmol/L (137-145); Total Protein 5.9 g/dL (6.3-8.2)
--- NOTE | 2024-10-31 07:49 | P.PN ---
Subjective Progress Note Date: 10/31/24 The patient was seen and evaluated this morning. She is in sinus mechanism at this point. She is on oral anticoagulation. The physical examination is remarkable for regular rhythm with a soft systolic murmur and bilateral expiratory wheezing and no edema was noted in the lower extremities Assessment Asthma exacerbation/possible pneumonia/tracheomalacia Paroxysmal atrial fibrillation Multiple comorbid conditions Plan Continue the current medical regimen Continue oral anticoagulation Possible atrial fibrillation ablation as an outpatient Objective - Vital Signs Vital signs: Vital Signs Temp 98 F 10/30/24 23:40 Pulse 67 10/31/24 03:20 Resp 17 10/31/24 03:20 BP 131/73 10/31/24 03:20 Pulse Ox 97 10/31/24 03:20 FiO2 21 10/30/24 08:11 Intake & Output 10/30/24 10/31/24 10/31/24 18:59 06:59 18:59 Intake Total 1560 260 Balance 1560 260 Weight 75.5 kg Intake: IV 20 Invasive Line 3 20 Oral 1560 240 Other: Voiding Method Toilet Toilet # Voids 2 1 - Labs CBC & Chem 7: 10/31/24 05:17 10/31/24 05:17 Labs: Abnormal Lab Results - Last 24 Hours (Table) 10/29/24 10/30/24 10/30/24 Range/Units 11:59 11:17 16:31 WBC (4.50-10.00) 10*3/uL Immature Gran # (0.00-0.04) 10*3/uL Neutrophils # (1.80-7.70) 10*3/uL Lymphocytes # (0.90-5.00) 10*3/uL Eosinophils # (0.04-0.35) 10*3/uL BUN (7-17) mg/dL Glucose (74-99) mg/dL POC Glucose (mg/dL) 115 H 170 H (70-110) mg/dL Total Protein (6.3-8.2) g/dL Free T3 pg/mL 1.60 L (2.30-4.20) pg/mL 10/30/24 10/31/24 10/31/24 Range/Units 19:43 05:17 05:17 WBC 10.71 H (4.50-10.00) 10*3/uL Immature Gran # 0.25 H (0.00-0.04) 10*3/uL Neutrophils # 9.20 H (1.80-7.70) 10*3/uL Lymphocytes # 0.85 L (0.90-5.00) 10*3/uL Eosinophils # 0.00 L (0.04-0.35) 10*3/uL BUN 18 H (7-17) mg/dL Glucose 143 H (74-99) mg/dL POC Glucose (mg/dL) 199 H (70-110) mg/dL Total Protein 5.9 L (6.3-8.2) g/dL Free T3 pg/mL (2.30-4.20) pg/mL 10/31/24 Range/Units 05:43 WBC (4.50-10.00) 10*3/uL Immature Gran # (0.00-0.04) 10*3/uL Neutrophils # (1.80-7.70) 10*3/uL Lymphocytes # (0.90-5.00) 10*3/uL Eosinophils # (0.04-0.35) 10*3/uL BUN (7-17) mg/dL Glucose (74-99) mg/dL POC Glucose (mg/dL) 140 H (70-110) mg/dL Total Protein (6.3-8.2) g/dL Free T3 pg/mL (2.30-4.20) pg/mL Microbiology - Last 24 Hours (Table) 10/29/24 07:20 Acid Fast Bacilli Smear - Preliminary Bronchoalviolar Lavage - Right 10/29/24 07:20 Gram Stain - Preliminary Bronchoalviolar Lavage - Right Bronchial Washings Culture - Preliminary 10/27/24 19:20 Gram Stain - Final Sputum Sputum Culture - Final Nocardia cyriacigeorgica
[2024-10-31 11:05] LABS: Immunoglobulin G 707.0 mg/dL (700.0-1600.0); Immunoglobulin M 65.0 mg/dL (40.0-280.0)
[2024-10-31 11:14] LABS: Glucose,Whole Blood 172 mg/dL (70-110)
[2024-10-31 13:44] LABS: HIV 2 AB Non-Reactive (Non-Reactive); HIV AB P24 Non-Reactive (Non-Reactive); HIV P24 AG Non-Reactive (Non-Reactive)
--- NOTE | 2024-10-31 14:03 | P.PN ---
Subjective Progress Note Date: 10/31/24 69-year-old female with past medical history significant for severe persistent asthma, history of Pseudomonas infection in the past, tracheobronchomalacia, hypertension osteoarthritis, sleep apnea, history of SVTs, atrial fibrillation on Eliquis history of allergic rhinitis, hypothyroidism who presented to ER with a complaint of difficulty breathing, lightheadedness, chest tightness. Patient reported that she was unable to take deep breaths with severe wheezing. Patient denied any fever or chills, denied any productive cough. Patient denied any headache, vision changes, sore throat, nausea vomiting diarrhea constipation abdominal pain dysuria urgency frequency weakness or numbness of extremities. Patient is afebrile, heart rate 74, respiratory rate 16, blood pressure 104/62, saturating 94% on room air. WBCs 13.3 hemoglobin 14.3, platelet 388. INR 0.9. CMP unremarkable. Troponin remained negative x 3. Influenza RSV and COVID PCR negative. Chest x-ray showed changes of COPD, small bilateral pleural effusions 10/28. Patient seen and examined. Lab work done and reviewed showed WBC 12.77, hemoglobin 12.1, sodium 170 potassium 3.8, BUN 14, creatinine 0.46. Breathing is improved, currently not requiring any oxygen. . Patient seen and examined. Patient underwent Flexible bronchoscopy / bronchoalveolar lavage by pulmonary this morning. States she feels better. Still complaining of cough and shortness of breath 10/30. Patient seen and examined. Still complaining of shortness of breath on exertion. Denies any fever or chills. 10/31. Patient seen and examined. Currently on room air, not requiring any oxygen. Labs reviewed showing WBC 10.7, hemoglobin 13.1, sodium 137, potassium 4.1, BUN 18, creatinine 0.69 REVIEW OF SYSTEMS: CONSTITUTIONAL: No fever, no malaise,. CARDIOVASCULAR: No chest pain, no palpitations, no syncope. PULMONARY: No shortness of breath, no cough, as mentioned above GASTROINTESTINAL: No diarrhea, no nausea, no vomiting, no abdominal pain. NEUROLOGICAL: No headaches, no weakness, PHYSICAL EXAMINATION: GENERAL: The patient is alert and oriented x3, not in any acute distress. Well developed, well nourished. HEENT: Pupils are round and equally reacting to light. EOMI. No scleral icterus. No conjunctival pallor. Normocephalic, atraumatic. No pharyngeal erythema. No thyromegaly. CARDIOVASCULAR: S1 and S2 present. No murmurs, rubs, or gallops. PULMONARY: Coarse breath sounds bilaterally, expiratory wheeze audible ABDOMEN: Soft, nontender, nondistended, normoactive bowel sounds. No palpable organomegaly. MUSCULOSKELETAL: No joint swelling or deformity. EXTREMITIES: No cyanosis, clubbing, or pedal edema. NEUROLOGICAL: Gross neurological examination did not reveal any focal deficits. SKIN: No rashes. Assessment and plan Exacerbation of severe persistent asthma: History of tracheobronchomalacia History of pseudomonal infections Leukocytosis Eosinophilic asthma receives transpire injections Allergic rhinitis Presented with worsening shortness of breath, wheezing, cough. Chest x-ray showed COPD, small bilateral pleural effusions. Status post flexible bronchoscopy/bronchial lavage on 10/29 Sputum cultures growing nocardia Continue bronchodilators Continue Solu-Medrol continue meropenem Continue Diflucan Pulmonary following, recommendations noted from 10/31 ID following, recommendations noted from 10/31 Paroxysmal atrial fibrillation: Recently diagnosed with atrial fibrillation Continue [facility] evaluated, their notes reviewed and recommendations noted from 10/31, recommended discontinuing Cardizem and amiodarone, added as needed atenolol Hypothyroidism: Synthroid Hypertension: Losartan Anxiety: Xanax as needed DVT prophylaxis Anticoagulated Labs and medication were reviewed.. Continue same treatment. Continue with s ymptomatic treatment. Resume home medication. Monitor labs and vitals. DVT and GI prophylaxis. Further recommendations as per clinical course of the patient Dictation was produced using [employer] dictation software. please excuse any grammatical, word or spelling errors. Objective - Vital Signs Vital signs: Vital Signs Temp 98.1 F 10/31/24 08:00 Pulse 72 10/31/24 08:19 Resp 18 10/31/24 08:00 BP 144/78 10/31/24 08:00 Pulse Ox 97 10/31/24 08:00 FiO2 21 10/30/24 08:11 Intake & Output 10/30/24 10/31/24 10/31/24 18:59 06:59 18:59 Intake Total 1560 260 250 Balance 1560 260 250 Weight 75.5 kg Intake: IV 20 10 Invasive Line 3 20 10 Oral 1560 240 240 Other: Voiding Method Toilet Toilet # Voids 2 1 - Labs CBC & Chem 7: 10/31/24 05:17 10/31/24 05:17 Labs: Abnormal Lab Results - Last 24 Hours (Table) 10/29/24 10/30/24 10/30/24 Range/Units 11:59 11:17 16:31 WBC (4.50-10.00) 10*3/uL Immature Gran # (0.00-0.04) 10*3/uL Neutrophils # (1.80-7.70) 10*3/uL Lymphocytes # (0.90-5.00) 10*3/uL Eosinophils # (0.04-0.35) 10*3/uL BUN (7-17) mg/dL Glucose (74-99) mg/dL POC Glucose (mg/dL) 115 H 170 H (70-110) mg/dL Total Protein (6.3-8.2) g/dL Free T3 pg/mL 1.60 L (2.30-4.20) pg/mL 10/30/24 10/31/24 10/31/24 Range/Units 19:43 05:17 05:17 WBC 10.71 H (4.50-10.00) 10*3/uL Immature Gran # 0.25 H (0.00-0.04) 10*3/uL Neutrophils # 9.20 H (1.80-7.70) 10*3/uL Lymphocytes # 0.85 L (0.90-5.00) 10*3/uL Eosinophils # 0.00 L (0.04-0.35) 10*3/uL BUN 18 H (7-17) mg/dL Glucose 143 H (74-99) mg/dL POC Glucose (mg/dL) 199 H (70-110) mg/dL Total Protein 5.9 L (6.3-8.2) g/dL Free T3 pg/mL (2.30-4.20) pg/mL 10/31/24 Range/Units 05:43 WBC (4.50-10.00) 10*3/uL Immature Gran # (0.00-0.04) 10*3/uL Neutrophils # (1.80-7.70) 10*3/uL Lymphocytes # (0.90-5.00) 10*3/uL Eosinophils # (0.04-0.35) 10*3/uL BUN (7-17) mg/dL Glucose (74-99) mg/dL POC Glucose (mg/dL) 140 H (70-110) mg/dL Total Protein (6.3-8.2) g/dL Free T3 pg/mL (2.30-4.20) pg/mL Microbiology - Last 24 Hours (Table) 10/29/24 07:20 Acid Fast Bacilli Smear - Preliminary Bronchoalviolar Lavage - Right 10/29/24 07:20 Gram Stain - Preliminary Bronchoalviolar Lavage - Right Bronchial Washings Culture - Preliminary 10/27/24 19:20 Gram Stain - Final Sputum Sputum Culture - Final Nocardia cyriacigeorgica
[2024-10-31 16:30] LABS: Glucose,Whole Blood 140 mg/dL (70-110)
--- NOTE | 2024-10-31 17:40 | P.PN ---
Subjective Progress Note Date: 10/31/24 Principal diagnosis: Acute exacerbation of severe persistent asthma and chronic bronchiectasis Patient is 69-year-old female with past medical history significant for severe persistent asthma, tracheobronchomalacia, and previous Pseudomonas infections. Also, has history of allergic rhinitis, hypertension, hypothyroidism, and recent diagnosis of atrial fibrillation. She is anticoagulated on Eliquis. Patient presented emergency department yesterday afternoon with complaints of difficulty in breathing, lightheadedness, chest tightness. Reportedly, could not take a deep breath with severe wheezing. Chest x-ray showing hyperinflation. Possible small pleural effusions. NT proBNP only 938. CBC WBC count of 13.4, hemoglobin 14.3, platelets 388. D-dimer not clinically significant at 0.25. CMP unremarkable, electrolytes WDL, creatinine 0.65, glucose 97, lactic 1.2. Troponin less than 0.012. EKG: Normal sinus rhythm, with frequent unifocal PVCs. No acute ST segment elevations or T wave inversions. Patient previously loaded with IV Solu-Medrol and given multiple DuoNeb treatments. She is currently being evaluated in the emergency department. On room air. Wheezing and bronchospastic. Endorses productive cough, with yellow sputum. Denies fevers/chills. Denies nausea, vomiting, diarrhea. No rashes. Recent plane traveling to [place], [place] in September. States she did get sick when she came back. Was treated with a combination of prednisone and doxycycline outpatient. She sees Dr. Knight in the pulmonary office. She also follows with a asthma specialist at the [facility], Dr. Barone. She is on Trezpire injections every 4 weeks. Also, uses a Trelegy inhaler. Was on Airsupra inhaler but stopped this because she felt it caused her atrial fibrillation. Which was reportedly found on event monitor. She is seeing Dr. Crain. Recently, was on metoprolol, however, this was discontinued. Last week was placed on Cardizem. Denies any chest pain. Denies heart palpitations. Denies syncopal events. Denies any lower extremity edema. Reportedly, had esophagogram 3 days ago. Was told she has a hiatal hernia. Currently, rhythm appears normal sinus on bedside monitor. Vitals are stable. The patient is feeling improved compared to yesterday. She feels less bronchospastic and wheezy. She was supposed to have a bronchoscopy today and this was postponed till tomorrow. Meanwhile a CAT scan of the chest was done and the patient will 10/28/2024, the patient is being seen for a follow-up. Continues to have some right lower lobe and lingular tree-in-bud nodular opacities in addition to areas of bronchiectasis involving the lower lobes bilaterally. There is similar scarring opacity within the right midlung that dates back to 2021. No fever. No chills. White cell count of 12.7 with a hematoma 0.1 and a platelet count of 382. Electrolytes are normal. Renal function is normal. LFTs are normal. Remains on Symbicort, albuterol nebulizer treatments 4 times a day, IV Solu-Medrol and Singulair. She is also on oral Levaquin 750 mg p.o. daily. Sputum sample was sent and results are still pending for now. 10/29/2024, the patient is being seen for a follow-up. The patient is currently n.p.o. and getting prepared for a bronchoscopy. Seems to be more stable compared to yesterday. Less mucus spastic and wheezy. Continues to have a congested cough. Unable to produce much of sputum. CAT scan of the chest was noted. Remains on bronchodilators. Remains on steroids. Remains on IV Solu- Medrol 60 mg every 6 hours. No other changes in her medication. The white cell count from yesterday was 4.7 with a hemoglobin 12.1. Electrolytes are all within normal limits. Normal renal function. CAT scan of the chest was noted. The patient remains on oral Levaquin. 10/30/2024, the patient is doing well. She continues to improve. Less bronchospastic and wheezy. Bronchoscopy was done. There is also still pending. Meanwhile, the patient's sputum sample was positive for nocardia and the patient was started on IV meropenem. Ideally, would like to put the patient on Bactrim. However, she thinks that she may have a sulfa allergy. She remains on bronchodilators. She remains on Symbicort. She remains on IV Solu-Medrol. She is also on transplant on outpatient basis. No new labs are available from today. He is doing well. She is currently on room air oxygen with a pulse ox of 95%. 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 Patient is being followed by infectious disease, remains on Merrem for now mostly because of her severe allergy to Bactrim. Patient is also on bronchodilators, she is on Solu-Medrol, improving but still not anywhere ready for discharge. Infectious diseases is recommending immunoglobulin profile, previously the patient had multiple recurrent infections but most of it was Pseudomonas. And this has been treated at 1 point with multiple different antibiotics for pseudomonal infections. WBC count is 10.7 hemoglobin is 13.1 electrolytes are normal renal profile is normal Objective - Vital Signs Vital signs: Vital Signs Temp 98.1 F 10/31/24 12:00 Pulse 80 10/31/24 16:05 Resp 18 10/31/24 12:13 BP 134/62 10/31/24 12:00 Pulse Ox 97 10/31/24 12:00 FiO2 21 10/30/24 08:11 Intake & Output 10/30/24 10/31/24 10/31/24 18:59 06:59 18:59 Intake Total 1560 260 260 Balance 1560 260 260 Weight 75.5 kg Intake: IV 20 20 Invasive Line 3 20 20 Oral 1560 240 240 Other: Voiding Method Toilet Toilet # Voids 2 1 - Exam GENERAL EXAM: 69-year-old in no distress HEAD: Normocephalic and atraumatic EYES: Normal reaction of pupils, equal size. NOSE: Clear with pink turbinates. THROAT: No erythema or exudates. NECK: No masses, no JVD. CHEST: No chest wall deformity. LUNGS: Scattered rhonchi and wheezes noted bilaterally CVS: S1 and S2 normal with no audible murmur, regular rhythm. No extra heart sounds ABDOMEN: No hepatosplenomegaly, active bowel sounds, no guarding or rigidity. SKIN: No rashes CENTRAL NERVOUS SYSTEM: Alert oriented x 3 no focal deficit EXTREMITIES: No clubbing edema or cyanosis - Labs CBC & Chem 7: 10/31/24 05:17 10/31/24 05:17 Labs: Abnormal Lab Results - Last 24 Hours (Table) 10/29/24 10/30/24 10/31/24 Range/Units 11:59 19:43 05:17 WBC 10.71 H (4.50-10.00) 10*3/uL Immature Gran # 0.25 H (0.00-0.04) 10*3/uL Neutrophils # 9.20 H (1.80-7.70) 10*3/uL Lymphocytes # 0.85 L (0.90-5.00) 10*3/uL Eosinophils # 0.00 L (0.04-0.35) 10*3/uL BUN (7-17) mg/dL Glucose (74-99) mg/dL POC Glucose (mg/dL) 199 H (70-110) mg/dL Total Protein (6.3-8.2) g/dL Free T3 pg/mL 1.60 L (2.30-4.20) pg/mL 10/31/24 10/31/24 10/31/24 Range/Units 05:17 05:43 11:13 WBC (4.50-10.00) 10*3/uL Immature Gran # (0.00-0.04) 10*3/uL Neutrophils # (1.80-7.70) 10*3/uL Lymphocytes # (0.90-5.00) 10*3/uL Eosinophils # (0.04-0.35) 10*3/uL BUN 18 H (7-17) mg/dL Glucose 143 H (74-99) mg/dL POC Glucose (mg/dL) 140 H 172 H (70-110) mg/dL Total Protein 5.9 L (6.3-8.2) g/dL Free T3 pg/mL (2.30-4.20) pg/mL 10/31/24 Range/Units 16:28 WBC (4.50-10.00) 10*3/uL Immature Gran # (0.00-0.04) 10*3/uL Neutrophils # (1.80-7.70) 10*3/uL Lymphocytes # (0.90-5.00) 10*3/uL Eosinophils # (0.04-0.35) 10*3/uL BUN (7-17) mg/dL Glucose (74-99) mg/dL POC Glucose (mg/dL) 140 H (70-110) mg/dL Total Protein (6.3-8.2) g/dL Free T3 pg/mL (2.30-4.20) pg/mL Microbiology - Last 24 Hours (Table) 10/29/24 07:20 Gram Stain - Final Bronchoalviolar Lavage - Right Bronchial Washings Culture - Final 10/29/24 07:20 Acid Fast Bacilli Smear - Preliminary Bronchoalviolar Lavage - Right Assessment and Plan Assessment: Impression: Acute exacerbation of severe persistent asthma Bronchiectasis with recurrent pulmonary infections 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 No previous history of immunodeficiency syndrome History of tracheobronchomalacia Eosinophilic asthma on tezspire injections on outpatient basis Benign essential hypertension Paroxysmal atrial fibrillation Hypothyroidism Generalized anxiety disorder Recommendation: Continue meropenem because of allergy to Bactrim Continue bronchodilators Continue IV Solu-Medrol Continue Symbicort as a substitute for Trelegy for now Reviewed her x-rays and CT of the chest Reviewed microbiologic cultures Will continue to follow Time with Patient: Less than 30
[2024-10-31 20:03] LABS: Glucose,Whole Blood 205 mg/dL (70-110)
[2024-11-01 05:47] LABS: Glucose,Whole Blood 153 mg/dL (70-110)
--- NOTE | 2024-11-01 06:53 | XR ---
EXAMINATION TYPE: XR chest 1V portable DATE OF EXAM: 11/01/2024 6:38 AM COMPARISON: Chest radiographs from 10/26/2024 CLINICAL INDICATION: Female, 69 years old with history of Bronchiectasis; [facility] TECHNIQUE: XR chest 1V portable Frontal view of the chest. FINDINGS: Lungs/Pleura: Blunting of the left costophrenic angle. Flattening of the diaphragm with increased roxy ency of the lung apices. There is no evidence of right pleural effusion, focal consolidation, or pneu mothorax Pulmonary vascularity: Unremarkable. Heart/mediastinum: Cardiomediastinal silhouette is unremarkable. Musculoskeletal: No acute osseous pathology. IMPRESSION: 1. No acute cardiopulmonary disease process. 2. Small left pleural effusion. 3. COPD changes. [facility], , 11/01/2024 6:51 AM
[2024-11-01 11:45] LABS: Glucose,Whole Blood 108 mg/dL (70-110)
--- NOTE | 2024-11-01 11:55 | P.PN ---
Subjective Progress Note Date: 10/31/24 Principal diagnosis: Reason for follow-up is Nocardia Patient is a 69-year-old female with a past medical history significant for hypertension pneumonia osteoarthritis asthma SVT history of recurrent pneumonia presented to the hospital with increasing shortness of emery th intermittent chest pain patient did have abnormal CT which shows right lower lobe and lingular tree-in-bud opacities sputum positive for nocardia prompting this consultation. On today's evaluation that is 10/31/2024, patient has been afebrile, patient is breathing slightly comfortably and is currently on room air, patient denies having any chest pain and cough slightly decreased in intensity, patient denies nausea vomiting or diarrhea and no abdominal pain. Patient white count is down to 10.71, creatinine 0.69 HIV testing has been negative immunoglobin levels normal BAL cultures so far negative Objective - Vital Signs Vital signs: Vital Signs Temp 97.9 F 10/31/24 11:37 Pulse 78 10/31/24 11:37 Resp 18 10/31/24 11:37 BP 161/85 10/31/24 11:37 Pulse Ox 95 10/31/24 11:37 FiO2 21 10/30/24 08:11 - Exam GENERAL DESCRIPTION: An elderly female up in bed in no distress RESPIRATORY SYSTEM: Unlabored breathing , coarse breath sounds at bases HEART: S1 S2 regular rate and rhythm , ABDOMEN: Soft , no tenderness EXTREMITIES: No edema feet - Labs CBC & Chem 7: 10/31/24 05:17 10/31/24 05:17 Labs: Abnormal Lab Results - Last 24 Hours (Table) 10/31/24 10/31/24 11/01/24 Range/Units 16:28 20:01 05:44 POC Glucose (mg/dL) 140 H 205 H 153 H (70-110) mg/dL Microbiology - Last 24 Hours (Table) 10/29/24 07:20 Gram Stain - Final Bronchoalviolar Lavage - Right Bronchial Washings Culture - Final Assessment and Plan (1) Nocardiosis Status: Acute Code(s): A43.9 - NOCARDIOSIS, UNSPECIFIED SNOMED Code(s): 89347628 (2) Allergy to sulfa drugs Status: Acute Code(s): Z88.2 - ALLERGY STATUS TO SULFONAMIDES SNOMED Code(s): 64180142 (3) Pneumonia Status: Acute Code(s): J18.9 - PNEUMONIA, UNSPECIFIED ORGANISM SNOMED Code(s): 177722418 Plan: 1patient presented to hospital with increased shortness of breath cough sputum production in this patient who did have abnormality seen on the CT of the chest with right lower lobe as well as lingular opacities and sputum is growing nocardia concerning for nocardia pneumonia patient also have some headache but no other feature but will need to make sure no evidence of any DIRECTOR OF SLEEP infection at this point. 2unfortunately patient allergic to sulfa which is the drug of choice for treatment of nocardiosis, did call the micro lab to obtain sensitivities of this pathogen as the patient need to be on a long-term course of antibiotic for this likely. 3with the patient concern for recurrent pneumonia patient did have a immunoglobin level which has been normal HIV testing has been negative 4will continue patient on meropenem while waiting for the BAL culture to be finalized Multiple questions asked and answered. Dictation was produced using [employer] dictation software. please excuse any grammatical, word or spelling errors. Time with Patient: Less than 30
--- NOTE | 2024-11-01 11:56 | P.PN ---
Subjective Progress Note Date: 11/01/24 Principal diagnosis: Reason for follow-up is Nocardia Patient is a 69-year-old female with a past medical history significant for hypertension pneumonia osteoarthritis asthma SVT history of recurrent pneumonia presented to the hospital with increasing shortness of emery th intermittent chest pain patient did have abnormal CT which shows right lower lobe and lingular tree-in-bud opacities sputum positive for nocardia prompting this consultation. On today's evaluation that is 11/01/2024, Patient is afebrile this morning patient denies having any chest pain shortness of breath or any worsening cough, the patient is currently on room air, patient denies any abdominal pain no diarrhea no nausea no vomiting. No new lab has been obtained today Objective - Vital Signs Vital signs: Vital Signs Temp 97.9 F 11/01/24 08:57 Pulse 78 11/01/24 11:37 Resp 18 11/01/24 11:37 BP 161/85 11/01/24 11:37 Pulse Ox 95 11/01/24 11:37 FiO2 21 10/30/24 08:11 Intake & Output 10/31/24 11/01/24 11/01/24 18:59 06:59 18:59 Intake Total 260 560 250 Output Total 2 Balance 260 558 250 Weight 75.5 kg Intake: IV 20 20 10 Invasive Line 3 20 20 10 Oral 240 540 240 Output: Urine 2 Other: Voiding Method Toilet Toilet # Voids 1 - Exam GENERAL DESCRIPTION: An elderly female up in bed in no distress RESPIRATORY SYSTEM: Unlabored breathing , coarse breath sounds at bases HEART: S1 S2 regular rate and rhythm , ABDOMEN: Soft , no tenderness EXTREMITIES: No edema feet - Labs CBC & Chem 7: 10/31/24 05:17 10/31/24 05:17 Labs: Abnormal Lab Results - Last 24 Hours (Table) 10/31/24 10/31/24 11/01/24 Range/Units 16:28 20:01 05:44 POC Glucose (mg/dL) 140 H 205 H 153 H (70-110) mg/dL Microbiology - Last 24 Hours (Table) 10/29/24 07:20 Gram Stain - Final Bronchoalviolar Lavage - Right Bronchial Washings Culture - Final Assessment and Plan (1) Nocardiosis Current Visit: Yes Status: Acute Code(s): A43.9 - NOCARDIOSIS, UNSPECIFIED SNOMED Code(s): 99616834 (2) Allergy to sulfa drugs Current Visit: Yes Status: Acute Code(s): Z88.2 - ALLERGY STATUS TO SULFONAMIDES SNOMED Code(s): 85271677 (3) Pneumonia Current Visit: Yes Status: Acute Code(s): J18.9 - PNEUMONIA, UNSPECIFIED ORGANISM SNOMED Code(s): 954132767 Plan: 1patient presented to hospital with increased shortness of breath cough sputum production in this patient who did have abnormality seen on the CT of the chest with right lower lobe as well as lingular opacities and sputum is growing nocardia concerning for nocardia pneumonia patient also have some headache but no other feature but will need to make sure no evidence of any EPIDEMIOLOGY INVESTIGATOR infection at this point. 2unfortunately patient allergic to sulfa which is the drug of choice for treatment of nocardiosis, did call the micro lab to obtain sensitivities of this pathogen as the patient need to be on a long-term course of antibiotic for this likely. 3with the patient concern for recurrent pneumonia patient did have a immunoglobin level which has been normal HIV testing has been negative 4patient willing to try Bactrim DS to see if she will tolerate it discussed with the pharmacist who will place the order for now continue with the meropenem Multiple questions asked and answered. Dictation was produced using [employer] dictation software. please excuse any grammatical, word or spelling errors. Time with Patient: Less than 30
[2024-11-01] MEDS: SULFAMETHOX-TMP 800-160MG 1 EACH TAB PO SCH (12:22)
--- NOTE | 2024-11-01 13:51 | P.PN ---
Subjective Progress Note Date: 11/01/24 The patient was seen and evaluated this morning. She is in sinus mechanism at this point. She is on oral anticoagulation. The physical examination is remarkable for regular rhythm with a soft systolic murmur and bilateral expiratory wheezing and no edema was noted in the lower extremities 11/01/2024 Patient seen and examined. She has been started on Eliquis. She is currently in sinus rhythm. Blood pressure 135/83, heart rate 74, pulse ox 95% on room air. The physical examination is remarkable for regular rhythm with a soft systolic murmur and bilateral expiratory wheezing and no edema was noted in the lower extremities Assessment Asthma exacerbation/possible pneumonia/tracheomalacia Paroxysmal atrial fibrillation Multiple comorbid conditions Plan Continue the current medical regimen Continue oral anticoagulation Possible atrial fibrillation ablation as an outpatient Nurse practitioner note has been reviewed, I agree with documented findings and plan of care. Patient was seen and examined. Objective - Vital Signs Vital signs: Vital Signs Temp 97.7 F 11/01/24 03:15 Pulse 74 11/01/24 03:15 Resp 18 11/01/24 03:15 BP 135/83 11/01/24 03:15 Pulse Ox 95 11/01/24 03:15 FiO2 21 10/30/24 08:11 Intake & Output 10/31/24 11/01/24 11/01/24 18:59 06:59 18:59 Intake Total 260 560 Output Total 2 Balance 260 558 Weight 75.5 kg Intake: IV 20 20 Invasive Line 3 20 20 Oral 240 540 Output: Urine 2 Other: Voiding Method Toilet # Voids 1 - Labs CBC & Chem 7: 10/31/24 05:17 10/31/24 05:17 Labs: Abnormal Lab Results - Last 24 Hours (Table) 10/31/24 10/31/24 10/31/24 Range/Units 11:13 16:28 20:01 POC Glucose (mg/dL) 172 H 140 H 205 H (70-110) mg/dL 11/01/24 Range/Units 05:44 POC Glucose (mg/dL) 153 H (70-110) mg/dL Microbiology - Last 24 Hours (Table) 10/29/24 07:20 Gram Stain - Final Bronchoalviolar Lavage - Right Bronchial Washings Culture - Final
--- NOTE | 2024-11-01 14:10 | P.PN ---
Subjective Progress Note Date: 11/01/24 69-year-old female with past medical history significant for severe persistent asthma, history of Pseudomonas infection in the past, tracheobronchomalacia, hypertension osteoarthritis, sleep apnea, history of SVTs, atrial fibrillation on Eliquis history of allergic rhinitis, hypothyroidism who presented to ER with a complaint of difficulty breathing, lightheadedness, chest tightness. Patient reported that she was unable to take deep breaths with severe wheezing. Patient denied any fever or chills, denied any productive cough. Patient denied any headache, vision changes, sore throat, nausea vomiting diarrhea constipation abdominal pain dysuria urgency frequency weakness or numbness of extremities. Patient is afebrile, heart rate 74, respiratory rate 16, blood pressure 104/62, saturating 94% on room air. WBCs 13.3 hemoglobin 14.3, platelet 388. INR 0.9. CMP unremarkable. Troponin remained negative x 3. Influenza RSV and COVID PCR negative. Chest x-ray showed changes of COPD, small bilateral pleural effusions 10/28. Patient seen and examined. Lab work done and reviewed showed WBC 12.77, hemoglobin 12.1, sodium 170 potassium 3.8, BUN 14, creatinine 0.46. Breathing is improved, currently not requiring any oxygen. . Patient seen and examined. Patient underwent Flexible bronchoscopy / bronchoalveolar lavage by pulmonary this morning. States she feels better. Still complaining of cough and shortness of breath 10/30. Patient seen and examined. Still complaining of shortness of breath on exertion. Denies any fever or chills. 10/31. Patient seen and examined. Currently on room air, not requiring any oxygen. Labs reviewed showing WBC 10.7, hemoglobin 13.1, sodium 137, potassium 4.1, BUN 18, creatinine 0.69 11/01. Patient seen examined. Breathing is improving. Not wearing any oxygen. REVIEW OF SYSTEMS: CONSTITUTIONAL: No fever, no malaise,. CARDIOVASCULAR: No chest pain, no palpitations, no syncope. PULMONARY: No shortness of breath, no cough, as mentioned above GASTROINTESTINAL: No diarrhea, no nausea, no vomiting, no abdominal pain. NEUROLOGICAL: No headaches, no weakness, PHYSICAL EXAMINATION: GENERAL: The patient is alert and oriented x3, not in any acute distress. Well developed, well nourished. HEENT: Pupils are round and equally reacting to light. EOMI. No scleral icterus. No conjunctival pallor. Normocephalic, atraumatic. No pharyngeal erythema. No thyromegaly. CARDIOVASCULAR: S1 and S2 present. No murmurs, rubs, or gallops. PULMONARY: Coarse breath sounds bilaterally, expiratory wheeze audible ABDOMEN: Soft, nontender, nondistended, normoactive bowel sounds. No palpable organomegaly. MUSCULOSKELETAL: No joint swelling or deformity. EXTREMITIES: No cyanosis, clubbing, or pedal edema. NEUROLOGICAL: Gross neurological examination did not reveal any focal deficits. SKIN: No rashes. Assessment and plan Exacerbation of severe persistent asthma: History of tracheobronchomalacia History of pseudomonal infections Leukocytosis Eosinophilic asthma receives transpire injections Allergic rhinitis Presented with worsening shortness of breath, wheezing, cough. Chest x-ray showed COPD, small bilateral pleural effusions. Status post flexible bronchoscopy/bronchial lavage on 10/29 Sputum cultures growing nocardia Continue bronchodilators Continue Solu-Medrol continue meropenem Continue Diflucan Pulmonary following, recommendations noted from 10/31 ID following, recommendations noted from 10/31 Paroxysmal atrial fibrillation: Recently diagnosed with atrial fibrillation Continue Eliquis Cardiology evaluated, their notes reviewed and recommendations noted from 10/31, recommended discontinuing Cardizem and amiodarone, added as needed atenolol Hypothyroidism: Synthroid Hypertension: Losartan Anxiety: Xanax as needed DVT prophylaxis Anticoagulated Labs and medication were reviewed.. Continue same treatment. Continue with symptomatic treatment. Resume home medication. Monitor labs and vitals. DVT and GI prophylaxis. Further recommendations as per clinical course of the patient Dictation was produced using [id number] dictation software. please excuse any grammatical, word or spelling errors. Objective - Vital Signs Vital signs: Vital Signs Temp 97.9 F 11/01/24 08:57 Pulse 74 11/01/24 13:03 Resp 18 11/01/24 13:03 BP 161/85 11/01/24 11:37 Pulse Ox 95 11/01/24 11:37 FiO2 21 10/30/24 08:11 Intake & Output 10/31/24 11/01/24 11/01/24 18:59 06:59 18:59 Intake Total 260 560 500 Output Total 2 Balance 260 558 500 Weight 75.5 kg Intake: IV 20 20 20 Invasive Line 3 20 20 20 Oral 240 540 480 Output: Urine 2 Other: Voiding Method Toilet Toilet # Voids 1 - Labs CBC & Chem 7: 10/31/24 05:17 10/31/24 05:17 Labs: Abnormal Lab Results - Last 24 Hours (Table) 10/31/24 10/31/24 11/01/24 Range/Units 16:28 20:01 05:44 POC Glucose (mg/dL) 140 H 205 H 153 H (70-110) mg/dL Microbiology - Last 24 Hours (Table) 10/29/24 07:20 Gram Stain - Final Bronchoalviolar Lavage - Right Bronchial Washings Culture - Final
--- NOTE | 2024-11-01 14:57 | P.PN ---
Subjective Progress Note Date: 11/01/24 Principal diagnosis: Acute exacerbation of severe persistent asthma and chronic bronchiectasis Patient is 69-year-old female with past medical history significant for severe persistent asthma, tracheobronchomalacia, and previous Pseudomonas infections. Also, has history of allergic rhinitis, hypertension, hypothyroidism, and recent diagnosis of atrial fibrillation. She is anticoagulated on Eliquis. Patient presented emergency department yesterday afternoon with complaints of difficulty in breathing, lightheadedness, chest tightness. Reportedly, could not take a deep breath with severe wheezing. Chest x-ray showing hyperinflation. Possible small pleural effusions. NT proBNP only 938. CBC WBC count of 13.4, hemoglobin 14.3, platelets 388. D-dimer not clinically significant at 0.25. CMP unremarkable, electrolytes WDL, creatinine 0.65, glucose 97, lactic 1.2. Troponin less than 0.012. EKG: Normal sinus rhythm, with frequent unifocal PVCs. No acute ST segment elevations or T wave inversions. Patient previously loaded with IV Solu-Medrol and given multiple DuoNeb treatments. She is currently being evaluated in the emergency department. On room air. Wheezing and bronchospastic. Endorses productive cough, with yellow sputum. Denies fevers/chills. Denies nausea, vomiting, diarrhea. No rashes. Recent plane traveling to [place], [place] in September. States she did get sick when she came back. Was treated with a combination of prednisone and doxycycline outpatient. She sees Dr. Knight in the pulmonary office. She also follows with a asthma specialist at [facility], Dr. Barone. She is on Trezpire injections every 4 weeks. Also, uses a Trelegy inhaler. Was on Airsupra inhaler but stopped this because she felt it caused her atrial fibrillation. Which was reportedly found on event monitor. She is seeing Dr. Crain. Recently, was on metoprolol, however, this was discontinued. Last week was placed on Cardizem. Denies any chest pain. Denies heart palpitations. Denies syncopal events. Denies any lower extremity edema. Reportedly, had esophagogram 3 days ago. Was told she has a hiatal hernia. Currently, rhythm appears normal sinus on bedside monitor. Vitals are stable. The patient is feeling improved compared to yesterday. She feels less bronchospastic and wheezy. She was supposed to have a bronchoscopy today and this was postponed till tomorrow. Meanwhile a CAT scan of the chest was done and the patient will 10/28/2024, the patient is being seen for a follow-up. Continues to have some right lower lobe and lingular tree-in-bud nodular opacities in addition to areas of bronchiectasis involving the lower lobes bilaterally. There is similar scarring opacity within the right midlung that dates back to 2021. No fever. No chills. White cell count of 12.7 with a hematoma 0.1 and a platelet count of 382. Electrolytes are normal. Renal function is normal. LFTs are normal. Remains on Symbicort, albuterol nebulizer treatments 4 times a day, IV Solu-Medrol and Singulair. She is also on oral Levaquin 750 mg p.o. daily. Sputum sample was sent and results are still pending for now. 10/29/2024, the patient is being seen for a follow-up. The patient is currently n.p.o. and getting prepared for a bronchoscopy. Seems to be more stable compared to yesterday. Less mucus spastic and wheezy. Continues to have a congested cough. Unable to produce much of sputum. CAT scan of the chest was noted. Remains on bronchodilators. Remains on steroids. Remains on IV Solu- Medrol 60 mg every 6 hours. No other changes in her medication. The white cell count from yesterday was 4.7 with a hemoglobin 12.1. Electrolytes are all within normal limits. Normal renal function. CAT scan of the chest was noted. The patient remains on oral Levaquin. 10/30/2024, the patient is doing well. She continues to improve. Less bronchospastic and wheezy. Bronchoscopy was done. There is also still pending. Meanwhile, the patient's sputum sample was positive for nocardia and the patient was started on IV meropenem. Ideally, would like to put the patient on Bactrim. However, she thinks that she may have a sulfa allergy. She remains on bronchodilators. She remains on Symbicort. She remains on IV Solu-Medrol. She is also on transplant on outpatient basis. No new labs are available from today. He is doing well. She is currently on room air oxygen with a pulse ox of 95%. 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 Patient is being followed by infectious disease, remains on Merrem for now mostly because of her severe allergy to Bactrim. Patient is also on bronchodilators, she is on Solu-Medrol, improving but still not anywhere ready for discharge. Infectious diseases is recommending immunoglobulin profile, previously the patient had multiple recurrent infections but most of it was Pseudomonas. And this has been treated at 1 point with multiple different antibiotics for pseudomonal infections. WBC count is 10.7 hemoglobin is 13.1 electrolytes are normal renal profile is normal Seen today on 11/01/2024, patient is feeling definitely better compared to how she felt on her initial presentation but not back fully to baseline. The main concern about this patient is the fact that she is allergic to Bactrim and would have liked to treat the patient's nocardia pulmonary infection/bronchiectasis with Bactrim. She is now on meropenem, infectious disease is considering a trial of Bactrim on this patient according to the patient herself. Patient has no symptoms to suggest any nocardia CHEMISTRY ASSOCIATE infection and again remember the drug of choice for nocardiosis is Bactrim apparently the infectious disease specialist discussed with the patient possibly using Bactrim instead of Bactrim but for the time being the patient is on Merrem. WBC count is 10.7 hemoglobin 13.1 electrolytes are normal renal profile is normal Objective - Vital Signs Vital signs: Vital Signs Temp 97.9 F 11/01/24 08:57 Pulse 74 11/01/24 13:03 Resp 18 11/01/24 13:03 BP 161/85 11/01/24 11:37 Pulse Ox 95 11/01/24 11:37 FiO2 21 10/30/24 08:11 Intake & Output 10/31/24 11/01/24 11/01/24 18:59 06:59 18:59 Intake Total 260 560 500 Output Total 2 Balance 260 558 500 Weight 75.5 kg Intake: IV 20 20 20 Invasive Line 3 20 20 20 Oral 240 540 480 Output: Urine 2 Other: Voiding Method Toilet Toilet # Voids 1 - Exam GENERAL EXAM: 69-year-old in no distress HEAD: Normocephalic and atraumatic EYES: Normal reaction of pupils, equal size. NOSE: Clear with pink turbinates. THROAT: No erythema or exudates. NECK: No masses, no JVD. CHEST: No chest wall deformity. LUNGS: Scattered rhonchi and wheezes noted bilaterally CVS: S1 and S2 normal with no audible murmur, regular rhythm. No extra heart sounds ABDOMEN: No hepatosplenomegaly, active bowel sounds, no guarding or rigidity. SKIN: No rashes CENTRAL NERVOUS SYSTEM: Alert oriented x 3 no focal deficit EXTREMITIES: No clubbing edema or cyanosis - Labs CBC & Chem 7: 10/31/24 05:17 10/31/24 05:17 Labs: Abnormal Lab Results - Last 24 Hours (Table) 10/31/24 10/31/24 11/01/24 Range/Units 16:28 20:01 05:44 POC Glucose (mg/dL) 140 H 205 H 153 H (70-110) mg/dL Assessment and Plan Assessment: Impression: Acute exacerbation of severe persistent asthma Bronchiectasis with recurrent pulmonary infections 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 No previous history of immunodeficiency syndrome History of tracheobronchomalacia Eosinophilic asthma on tezspire injections on outpatient basis Benign essential hypertension Paroxysmal atrial fibrillation Hypothyroidism Generalized anxiety disorder Recommendation: Continue meropenem because of allergy to Bactrim Continue bronchodilators Continue IV Solu-Medrol Continue Symbicort as a substitute for Trelegy for now Reviewed her x-rays and CT of the chest Reviewed microbiologic cultures Wondering if infectious disease will proceed with Bactrim or arrange for Merrem on outpatient basis. That is to be addressed by infectious disease on the case. Will continue to follow Time with Patient: Less than 30
[2024-11-01 16:42] LABS: Glucose,Whole Blood 137 mg/dL (70-110)
[2024-11-01 20:14] LABS: Glucose,Whole Blood 157 mg/dL (70-110)
[2024-11-02 06:13] LABS: Glucose,Whole Blood 133 mg/dL (70-110)
[2024-11-02 08:27] VITALS: RESP 16
[2024-11-02 11:28] LABS: Glucose,Whole Blood 171 mg/dL (70-110)
--- NOTE | 2024-11-02 12:36 | P.PN ---
Subjective Progress Note Date: 11/02/24 Principal diagnosis: Reason for follow-up is Nocardia Patient is a 69-year-old female with a past medical history significant for hypertension pneumonia osteoarthritis asthma SVT history of recurrent pneumonia presented to the hospital with increasing shortness of emery th intermittent chest pain patient did have abnormal CT which shows right lower lobe and lingular tree-in-bud opacities sputum positive for nocardia prompting this consultation. On today's evaluation that is 11/02/2024,the patient denies any fever or any chills, patient is still complaining of shortness of breath on minimal exertion he did have a cough mostly dry hacking unable to cough up any sputum no nausea no vomiting no abdominal pain no diarrhea patient is tolerating Bactrim DS without any problem. No new lab has been obtained today Objective - Vital Signs Vital signs: Vital Signs Temp 97.9 F 11/02/24 08:00 Pulse 90 11/02/24 12:00 Resp 16 11/02/24 12:00 BP 143/74 11/02/24 12:00 Pulse Ox 96 11/02/24 12:00 FiO2 21 10/30/24 08:11 Intake & Output 11/01/24 11/02/24 11/02/24 18:59 06:59 18:59 Intake Total 1742 20 250 Balance 1742 20 250 Weight 77 kg Intake: IV 20 20 10 Invasive Line 3 20 20 10 Oral 1722 240 Other: Voiding Method Toilet Toilet Toilet # Voids 1 - Exam GENERAL DESCRIPTION: An elderly female up in bed in no distress RESPIRATORY SYSTEM: Unlabored breathing , coarse breath sounds at bases HEART: S1 S2 regular rate and rhythm , ABDOMEN: Soft , no tenderness EXTREMITIES: No edema feet - Labs CBC & Chem 7: 10/31/24 05:17 10/31/24 05:17 Labs: Abnormal Lab Results - Last 24 Hours (Table) 11/01/24 11/01/24 11/02/24 Range/Units 16:40 20:12 06:11 POC Glucose (mg/dL) 137 H 157 H 133 H (70-110) mg/dL 11/02/24 Range/Units 11:27 POC Glucose (mg/dL) 171 H (70-110) mg/dL Assessment and Plan (1) Nocardiosis Current Visit: Yes Status: Acute Code(s): A43.9 - NOCARDIOSIS, UNSPECIFIED SNOMED Code(s): 62116811 (2) Allergy to sulfa drugs Current Visit: Yes Status: Acute Code(s): Z88.2 - ALLERGY STATUS TO SULFONAMIDES SNOMED Code(s): 87093424 (3) Pneumonia Current Visit: Yes Status: Acute Code(s): J18.9 - PNEUMONIA, UNSPECIFIED ORGANISM SNOMED Code(s): 484154123 Plan: 1patient presented to hospital with increased shortness of breath cough sputum production in this patient who did have abnormality seen on the CT of the chest with right lower lobe as well as lingular opacities and sputum is growing nocardia concerning for nocardia pneumonia patient also have some headache but no other feature but will need to make sure no evidence of any PMO LEAD infection at this point. 2unfortunately patient allergic to sulfa which is the drug of choice for treatment of nocardiosis, did call the micro lab to obtain sensitivities of this pathogen as the patient need to be on a long-term course of antibiotic for this likely. 3with the patient concern for recurrent pneumonia patient did have a immunoglobin level which has been normal HIV testing has been negative 4patient seem to have tolerated Bactrim DS which will be continued for now along with meropenem and if no issues during hospital stay with the Bactrim DS will recommend long-term course of Bactrim DS on discharge and there will be no need for IV meropenem multiple question concern answered Dictation was produced using [employer] dictation software. please excuse any grammatical, word or spelling errors. Time with Patient: Less than 30
--- NOTE | 2024-11-02 12:52 | P.PN ---
Subjective Progress Note Date: 11/02/24 The patient was seen and evaluated this morning. She is in sinus mechanism at this point. She is on oral anticoagulation. The physical examination is remarkable for regular rhythm with a soft systolic murmur and bilateral expiratory wheezing and no edema was noted in the lower extremities 11/01/2024 Patient seen and examined. She has been started on Eliquis. She is currently in sinus rhythm. Blood pressure 135/83, heart rate 74, pulse ox 95% on room air. The physical examination is remarkable for regular rhythm with a soft systolic murmur and bilateral expiratory wheezing and no edema was noted in the lower extremities 11/02/2024 Patient seen and examined. She remains in a sinus rhythm. She states her breathing is better since she came into the hospital. She feels like she is able to talk now. She is followed closely by pulmonary medicine. Blood pressure 153/84, heart rate in the 80s, pulse ox 95% on room air. Chest x-ray from yesterday reveals no acute cardiopulmonary process. Small left pleural effusion. COPD changes. The physical examination is remarkable for regular rhythm with a soft systolic murmur and bilateral expiratory wheezing and no edema was noted in the lower ext remities Assessment Asthma exacerbation/possible pneumonia/tracheomalacia Paroxysmal atrial fibrillation, currently in sinus rhythm Multiple comorbid conditions Plan Continue the current medical regimen Continue oral anticoagulation Possible atrial fibrillation ablation as an outpatient Nurse practitioner note has been reviewed, I agree with documented findings and plan of care. Patient was seen and examined. Objective - Vital Signs Vital signs: Vital Signs Temp 97.6 F 11/02/24 04:00 Pulse 69 11/02/24 04:00 Resp 18 11/02/24 04:00 BP 136/75 11/02/24 04:00 Pulse Ox 93 L 11/02/24 04:00 FiO2 21 10/30/24 08:11 Intake & Output 11/01/24 11/02/24 11/02/24 18:59 06:59 18:59 Intake Total 1742 20 Balance 1742 20 Weight 77 kg Intake: IV 20 20 Invasive Line 3 20 20 Oral 1722 Other: Voiding Method Toilet Toilet # Voids 1 - Labs CBC & Chem 7: 10/31/24 05:17 10/31/24 05:17 Labs: Abnormal Lab Results - Last 24 Hours (Table) 11/01/24 11/01/2425 Range/Units 16:40 20:12 06:11 POC Glucose (mg/dL) 137 H 157 H 133 H (70-110) mg/dL
--- NOTE | 2024-11-02 13:14 | P.PN ---
Subjective Progress Note Date: 11/02/24 69-year-old female with past medical history significant for severe persistent asthma, history of Pseudomonas infection in the past, tracheobronchomalacia, hypertension osteoarthritis, sleep apnea, history of SVTs, atrial fibrillation on Eliquis history of allergic rhinitis, hypothyroidism who presented to ER with a complaint of difficulty breathing, lightheadedness, chest tightness. Patient reported that she was unable to take deep breaths with severe wheezing. Patient denied any fever or chills, denied any productive cough. Patient denied any headache, vision changes, sore throat, nausea vomiting diarrhea constipation abdominal pain dysuria urgency frequency weakness or numbness of extremities. Patient is afebrile, heart rate 74, respiratory rate 16, blood pressure 104/62, saturating 94% on room air. WBCs 13.3 hemoglobin 14.3, platelet 388. INR 0.9. CMP unremarkable. Troponin remained negative x 3. Influenza RSV and COVID PCR negative. Chest x-ray showed changes of COPD, small bilateral pleural effusions 10/28. Patient seen and examined. Lab work done and reviewed showed WBC 12.77, hemoglobin 12.1, sodium 170 potassium 3.8, BUN 14, creatinine 0.46. Breathing is improved, currently not requiring any oxygen. . Patient seen and examined. Patient underwent Flexible bronchoscopy / bronchoalveolar lavage by pulmonary this morning. States she feels better. Still complaining of cough and shortness of breath 10/30. Patient seen and examined. Still complaining of shortness of breath on exertion. Denies any fever or chills. 10/31. Patient seen and examined. Currently on room air, not requiring any oxygen. Labs reviewed showing WBC 10.7, hemoglobin 13.1, sodium 137, potassium 4.1, BUN 18, creatinine 0.69 11/01. Patient seen examined. Breathing is improving. Not wearing any oxygen. 11/02. Patient seen and examined. Patient continues to improve. No acute issue overnight. Using I-S. Currently on meropenem and Bactrim. REVIEW OF SYSTEMS: CONSTITUTIONAL: No fever, no malaise,. CARDIOVASCULAR: No chest pain, no palpitations, no syncope. PULMONARY: No shortness of breath, no cough, as mentioned above GASTROINTESTINAL: No diarrhea, no nausea, no vomiting, no abdominal pain. NEUROLOGICAL: No headaches, no weakness, PHYSICAL EXAMINATION: GENERAL: The patient is alert and oriented x3, not in any acute distress. Well developed, well nourished. HEENT: Pupils are round and equally reacting to light. EOMI. No scleral icterus. No conjunctival pallor. Normocephalic, atraumatic. No pharyngeal erythema. No thyromegaly. CARDIOVASCULAR: S1 and S2 present. No murmurs, rubs, or gallops. PULMONARY: Coarse breath sounds bilaterally, expiratory wheeze audible ABDOMEN: Soft, nontender, nondistended, normoactive bowel sounds. No palpable organomegaly. MUSCULOSKELETAL: No joint swelling or deformity. EXTREMITIES: No cyanosis, clubbing, or pedal edema. NEUROLOGICAL: Gross neurological examination did not reveal any focal deficits. SKIN: No rashes. Assessment and plan Exacerbation of severe persistent asthma: History of tracheobronchomalacia History of pseudomonal infections Leukocytosis Eosinophilic asthma receives transpire injections Allergic rhinitis Presented with worsening shortness of breath, wheezing, cough. Chest x-ray showed COPD, small bilateral pleural effusions. Status post flexible bronchoscopy/bronchial lavage on 10/29 Sputum cultures growing nocardia Continue bronchodilators Continue Solu-Medrol continue meropenem Bactrim Continue Diflucan Pulmonary following, recommendations noted from 11/01 ID following, recommendations noted from 11/01 Paroxysmal atrial fibrillation: Recently diagnosed with atrial fibrillation Continue Eliquis Cardiology evaluated, their notes reviewed and recommendations noted from 10/31, recommended discontinuing Cardizem and amiodarone, added as needed atenolol Hypothyroidism: Synthroid Hypertension: Losartan Anxiety: Xanax as needed DVT prophylaxis Anticoagulated Labs and medication were reviewed.. Continue same treatment. Continue with symptomatic treatment. Resume home medication. Monitor labs and vitals. DVT and GI prophylaxis. Further recommendations as per clinical course of the patient Dictation was produced using [employer] dictation software. please excuse any grammatical, word or spelling errors. Objective - Vital Signs Vital signs: Vital Signs Temp 97.9 F 11/02/24 08:00 Pulse 81 11/02/24 08:00 Resp 16 11/02/24 08:00 BP 153/84 11/02/24 08:00 Pulse Ox 95 11/02/24 08:00 FiO2 21 10/30/24 08:11 Intake & Output 11/01/24 11/02/24 11/02/24 18:59 06:59 18:59 Intake Total 1742 20 240 Balance 1742 20 240 Weight 77 kg Intake: IV 20 20 Invasive Line 3 20 20 Oral 1722 240 Other: Voiding Method Toilet Toilet # Voids 1 - Labs CBC & Chem 7: 10/31/24 05:17 10/31/24 05:17 Labs: Abnormal Lab Results - Last 24 Hours (Table) 11/01/24 11/01/24 11/02/24 Range/Units 16:40 20:12 06:11 POC Glucose (mg/dL) 137 H 157 H 133 H (70-110) mg/dL
[2024-11-02 16:24] LABS: Glucose,Whole Blood 151 mg/dL (70-110)
--- NOTE | 2024-11-02 17:15 | P.PN ---
Subjective Progress Note Date: 11/02/24 Patient is 69-year-old female with past medical history significant for severe persistent asthma, tracheobronchomalacia, and previous Pseudomonas infections. Also, has history of allergic rhinitis, hypertension, hypothyroidism, and recent diagnosis of atrial fibrillation. She is anticoagulated on Eliquis. Patient presented emergency department yesterday afternoon with complaints of difficulty in breathing, lightheadedness, chest tightness. Reportedly, could not take a deep breath with severe wheezing. Chest x-ray showing hyperinflation. Possible small pleural effusions. NT proBNP only 938. CBC WBC count of 13.4, hemoglobin 14.3, platelets 388. D-dimer not clinically significant at 0.25. CMP unremarkable, electrolytes WDL, creatinine 0.65, glucose 97, lactic 1.2. Troponin less than 0.012. EKG: Normal sinus rhythm, with frequent unifocal PVCs. No acute ST segment elevations or T wave inversions. Patient previously loaded with IV Solu-Medrol and given multiple DuoNeb treatments. She is currently being evaluated in the emergency department. On room air. Wheezing and bronchospastic. Endorses productive cough, with yellow sputum. Denies fevers/chills. Denies nausea, vomiting, diarrhea. No rashes. Recent plane traveling to [place], [facility] in September. States she did get sick when she came back. Was treated with a combination of prednisone and doxycycline outpatient. She sees Dr. Knight in the pulmonary office. She also follows with a asthma specialist at the [facility], Dr. Barone. She is on Trezpire injections every 4 weeks. Also, uses a Trelegy inhaler. Was on Airsupra inhaler but stopped this because she felt it caused her atrial fibrillation. Which was reportedly found on event monitor. She is seeing Dr. Crain. Recently, was on metoprolol, however, this was discontinued. Last week was placed on Cardizem. Denies any chest pain. Denies heart palpitations. Denies syncopal events. Denies any lower extremity edema. Reportedly, had esophagogram 3 days ago. Was told she has a hiatal hernia. Currently, rhythm appears normal sinus on bedside monitor. Vitals are stable. The patient is feeling improved compared to yesterday. She feels less bronchospastic and wheezy. She was supposed to have a bronchoscopy today and this was postponed till tomorrow. Meanwhile a CAT scan of the chest was done and the patient will 10/28/2024, the patient is being seen for a follow-up. Continues to have some right lower lobe and lingular tree-in-bud nodular opacities in addition to areas of bronchiectasis involving the lower lobes bilaterally. There is similar scarring opacity within the right midlung that dates back to 2021. No fever. No chills. White cell count of 12.7 with a hematoma 0.1 and a platelet count of 382. Electrolytes are normal. Renal function is normal. LFTs are normal. Remains on Symbicort, albuterol nebulizer treatments 4 times a day, IV Solu-Medrol and Singulair. She is also on oral Levaquin 750 mg p.o. daily. Sputum sample was sent and results are still pending for now. 10/29/2024, the patient is being seen for a follow-up. The patient is currently n.p.o. and getting prepared for a bronchoscopy. Seems to be more stable compared to yesterday. Less mucus spastic and wheezy. Continues to have a congested cough. Unable to produce much of sputum. CAT scan of the chest was noted. Remains on bronchodilators. Remains on steroids. Remains on IV Solu- Medrol 60 mg every 6 hours. No other changes in her medication. The white cell count from yesterday was 4.7 with a hemoglobin 12.1. Electrolytes are all within normal limits. Normal renal function. CAT scan of the chest was noted. The patient remains on oral Levaquin. 10/30/2024, the patient is doing well. She continues to improve. Less bronchospastic and wheezy. Bronchoscopy was done. There is also still pending. Meanwhile, the patient's sputum sample was positive for nocardia and the patient was started on IV meropenem. Ideally, would like to put the patient on Bactrim. However, she thinks that she may have a sulfa allergy. She remains on bronchodilators. She remains on Symbicort. She remains on IV Solu-Medrol. She is also on transplant on outpatient basis. No new labs are available from today. He is doing well. She is currently on room air oxygen with a pulse ox of 95%. 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 Patient is being followed by infectious disease, remains on Merrem for now mostly because of her severe allergy to Bactrim. Patient is also on bronchodilators, she is on Solu-Medrol, improving but still not anywhere ready for discharge. Infectious diseases is recommending immunoglobulin profile, previously the patient had multiple recurrent infections but most of it was Pseudomonas. And this has been treated at 1 point with multiple different antibiotics for pseudomonal infections. WBC count is 10.7 hemoglobin is 13.1 electrolytes are normal renal profile is normal Seen today on 11/01/2024, patient is feeling definitely better compared to how she felt on her initial presentation but not back fully to baseline. The main concern about this patient is the fact that she is allergic to Bactrim and would have liked to treat the patient's nocardia pulmonary infection/bronchiectasis with Bactrim. She is now on meropenem, infectious disease is considering a t rial of Bactrim on this patient according to the patient herself. Patient has no symptoms to suggest any nocardia [place] infection and again remember the drug of choice for nocardiosis is Bactrim apparently the infectious disease specialist discussed with the patient possibly using Bactrim instead of Bactrim but for the time being the patient is on Merrem. WBC count is 10.7 hemoglobin 13.1 electrol ytes are normal renal profile is normal The patient is seen today November 02, 2024 in follow-up on the selective care unit. She is currently sitting up at the bedside. Awake and alert in no acute distr ess. Breathing easier today compared to yesterday. She is maintaining O2 saturations in the mid 90s on room air. She has been afebrile. Hemodynamically stable. 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 She has been seen by infectious disease who did place the patient on Bactrim and meropenem. She remains on albuterol, Symbicort, Solu-Medrol. Anticoagulated with Eliquis. Glucose 151. Objective - Vital Signs Vital signs: Vital Signs Temp 97.9 F 11/02/24 08:00 Pulse 91 11/02/24 15:28 Resp 16 11/02/24 15:28 BP 153/82 11/02/24 15:28 Pulse Ox 96 11/02/24 15:28 FiO2 21 10/30/24 08:11 Intake & Output 11/01/24 11/02/24 11/02/24 18:59 06:59 18:59 Intake Total 1742 20 750 Balance 1742 20 750 Weight 77 kg Intake: IV 20 20 20 Invasive Line 3 20 20 20 Intake, IV Titration 250 Amount Lactated Ringers 1,000 ml 250 @ 0 mls/hr IV .[facility] Rx#:[id number] Oral 1722 480 Other: Voiding Method Toilet Toilet Toilet # Voids 1 - Exam GENERAL EXAM: Alert, active, pleasant 69-year-old female, sitting up at the bedside, on room air oxygen, comfortable in no apparent distress. HEAD: Normocephalic. EYES: Normal reaction of pupils, equal size. NOSE: Clear with pink turbinates. THROAT: No erythema or exudates. NECK: No masses, no JVD. CHEST: No chest wall deformity. LUNGS: Equal air entry with few scattered rhonchi. CVS: S1 and S2 normal with no audible murmur, regular rhythm. ABDOMEN: No hepatosplenomegaly, normal bowel sounds, no guarding or rigidity. SPINE: No scoliosis or deformity SKIN: No rashes CENTRAL NERVOUS SYSTEM: No focal deficits, tone is normal in all 4 extremities. EXTREMITIES: There is no peripheral edema. No clubbing, no cyanosis. Periphera l pulses are intact. 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 No previous history of immunodeficiency syndrome History of tracheobronchomalacia Eosinophilic asthma on tezspire injections on outpatient basis Benign essential hypertension Paroxysmal atrial fibrillation Hypothyroidism Generalized anxiety disorder Plan: The patient was seen and evaluated Medications reviewed Microbiology reviewed Currently on meropenem and Bactrim Stable and on room air oxygen Continue her home Trelegy Continue bronchodilators Continue Solu-Medrol Increase activity as tolerated Home once cleared by ID service I have personally seen and examined the patient, performed the documentation and the assessment and plan as written. Number of minutes spent on the visit: 10 Dictation was produced using [employer] dictation software. Please excuse any grammatical, word or spelling errors.
[2024-11-02 20:03] LABS: Glucose,Whole Blood 188 mg/dL (70-110)
[2024-11-03 04:24] VITALS: TEMP 98.1
[2024-11-03 06:20] LABS: Glucose,Whole Blood 129 mg/dL (70-110)
[2024-11-03 11:18] LABS: Glucose,Whole Blood 128 mg/dL (70-110)
[2024-11-03 12:28] VITALS: BP 154/78; PULSE 102
[2024-11-03 12:29] VITALS: BMI 30.5
--- NOTE | 2024-11-03 13:10 | P.DS ---
Providers Date of admission: 10/27/24 01:53 Expected date of discharge: 11/03/24 Attending physician: Hardik Banks Consults: 10/27/24 01:52 Consult Physician Routine Consulting Provider: Kim Eaton Consult Reason/Comments: afib Do you want consulting provider notified?: Yes Consult Physician Routine Consulting Provider: Marvin Dolan Consult Reason/Comments: copd Do you want consulting provider notified?: Yes 10/30/24 13:29 Consult Physician Routine Consulting Provider: Micheline Zafar Consult Reason/Comments: resistant bacteria in culture Do you want consulting provider notified?: Yes Primary care physician: V[facility]ctor [facility] Course: Discharge diagnoses; Exacerbation of severe persistent asthma: History of tracheobronchomalacia History of pseudomonal infections Leukocytosis Eosinophilic asthma receives transpire injections Allergic rhinitis Being discharged on Bactrim, antibiotics prescription given by ID Outpatient follow-up with ID and pulmonary Paroxysmal atrial fibrillation: Recently diagnosed with atrial fibrillation Continue Eliquis Cardiology evaluated, their notes reviewed and recommendations noted from 10/31, recommended discontinuing Cardizem and amiodarone, added as needed atenolol Hypothyroidism: Synthroid Hypertension: Losartan Anxiety: Xanax as needed Hospital course; 69-year-old female with past medical history significant for severe persistent asthma, history of Pseudomonas infection in the past, tracheobronchomalacia, hypertension osteoarthritis, sleep apnea, history of SVTs, atrial fibrillation on Eliquis history of allergic rhinitis, hypothyroidism who presented to ER with a complaint of difficulty breathing, lightheadedness, chest tightness. Patient reported that she was unable to take deep breaths with severe wheezing. Patient denied any fever or chills, denied any productive cough. Patient denied any headache, vision changes, sore throat, nausea vomiting diarrhea constipation abdominal pain dysuria urgency frequency weakness or numbness of extremities. Patient is afebrile, heart rate 74, respiratory rate 16, blood pressure 104/62, saturating 94% on room air. WBCs 13.3 hemoglobin 14.3, platelet 388. INR 0.9. CMP unremarkable. Troponin remained negative x 3. Influenza RSV and COVID PCR negative. Chest x-ray showed changes of COPD, small bilateral pleural effusions 10/28. Patient seen and examined. Lab work done and reviewed showed WBC 12.77, hemoglobin 12.1, sodium 170 potassium 3.8, BUN 14, creatinine 0.46. Breathing is improved, currently not requiring any oxygen. . Patient seen and examined. Patient underwent Flexible bronchoscopy / bronchoalveolar lavage by pulmonary this morning. States she feels better. Still complaining of cough and shortness of breath 10/30. Patient seen and examined. Still complaining of shortness of breath on exertion. Denies any fever or chills. 10/31. Patient seen and examined. Currently on room air, not requiring any oxygen. Labs reviewed showing WBC 10.7, hemoglobin 13.1, sodium 137, potassium 4.1, BUN 18, creatinine 0.69 11/01. Patient seen examined. Breathing is improving. Not wearing any oxygen. 11/02. Patient seen and examined. Patient continues to improve. No acute issue overnight. Using I-S. Currently on meropenem and Bactrim. 11/03. Patient seen and examined. ID recommended starting patient on Bactrim, prescription given by ID. Pulmonology also cleared the patient for discharge PHYSICAL EXAMINATION: GENERAL: The patient is alert and oriented x3, not in any acute distress. Well developed, well nourished. HEENT: Pupils are round and equally reacting to light. EOMI. No scleral icterus. No conjunctival pallor. Normocephalic, atraumatic. No pharyngeal erythema. No thyromegaly. CARDIOVASCULAR: S1 and S2 present. No murmurs, rubs, or gallops. PULMONARY: Chest is clear to auscultation, no wheezing or crackles. ABDOMEN: Soft, nontender, nondistended, normoactive bowel sounds. No palpable organomegaly. MUSCULOSKELETAL: No joint swelling or deformity. EXTREMITIES: No cyanosis, clubbing, or pedal edema. NEUROLOGICAL: Gross neurological examination did not reveal any focal deficits. SKIN: No rashes. Dictation was produced using [employer] dictation software. please excuse any grammatical, word or spelling errors. Patient Condition at Discharge: Fair Plan - Discharge Summary Discharge Rx Participant: Yes New Discharge Prescriptions: New predniSONE 10 mg PO DAILY 8 Days #20 tab atenoloL [Tenormin] 50 mg PO DAILY PRN 30 Days #30 tab PRN Reason: Tachyarrhythmias Continue Montelukast [Singulair] 10 mg PO HS Albuterol Sulfate [Proventil Hfa] 2 puff INHALATION RT-Q6H PRN PRN Reason: Dyspnea Progesterone, Micronized [Progesterone] 100 mg PO HS ALPRAZolam [Xanax] 0.5 mg PO DAILY PRN PRN Reason: Anxiety guaiFENesin [Mucinex] 600 mg PO BID 10 Days #20 tab Latanoprost [Latanoprost 0.005%] 1 drop BOTH EYES HS amLODIPine [Norvasc] 10 mg PO DAILY Apixaban [Eliquis] 5 mg PO BID metFORMIN HCL [Glucophage] 850 mg PO BID Cetirizine HCl [Zyrtec] 10 mg PO DAILY Losartan [Cozaar] 50 mg PO HS Albuterol Sulfate/Budesonide [Airsupra 90-80 Mcg Inhaler] 2 puff INHALATION RT-Q4H PRN PRN Reason: Shortness Of Breath Or Wheezing Fluticasone/Umeclidin/Vilanter [Trelegy Ellipta 200-62.5-25] 1 puff INHALATION RT-DAILY Tezepelumab-Ekko [Tezspire] 210 mg SQ Q28D Discontinued dilTIAZem HCL [dilTIAZem HCL 24Hr ER (CD)] 120 mg PO HS Discharge Medication List Albuterol Sulfate [Proventil Hfa] 2 puff INHALATION RT-Q6H PRN 09/08/13 [History] Montelukast [Singulair] 10 mg PO HS 09/08/13 [History] Progesterone, Micronized [Progesterone] 100 mg PO HS 09/21/17 [History] ALPRAZolam [Xanax] 0.5 mg PO DAILY PRN 07/01/21 [History] guaiFENesin [Mucinex] 600 mg PO BID 10 Days #20 tab 07/09/21 [Rx] Latanoprost [Latanoprost 0.005%] 1 drop BOTH EYES HS 05/27/24 [History] Losartan [Cozaar] 50 mg PO HS 05/27/24 [History] amLODIPine [Norvasc] 10 mg PO DAILY 05/27/24 [History] Albuterol Sulfate/Budesonide [Airsupra 90-80 Mcg Inhaler] 2 puff INHALATION RT- Q4H PRN 10/27/24 [History] Apixaban [Eliquis] 5 mg PO BID 10/27/24 [History] Cetirizine HCl [Zyrtec] 10 mg PO DAILY 10/27/24 [History] Fluticasone/Umeclidin/Vilanter [Trelegy Ellipta 200-62.5-25] 1 puff INHALATION RT-DAILY 10/27/24 [History] Tezepelumab-Ekko [Tezspire] 210 mg SQ Q28D 10/27/24 [History] metFORMIN HCL [Glucophage] 850 mg PO BID 10/27/24 [History] atenoloL [Tenormin] 50 mg PO DAILY PRN 30 Days #30 tab 11/03/24 [Rx] predniSONE 10 mg PO DAILY 8 Days #20 tab 11/03/24 [Rx] Follow up Appointment(s)/Referral(s): Víctor Pacheco DO [Primary Care Provider] - 1-2 days [facility], [REFERRING] - 1 Week Micheline Zafar MD [STAFF PHYSICIAN] - 1 Week Marvin Dolan MD [STAFF PHYSICIAN] - 1 Week [facility], [NON-STAFF] - 1 Week
--- NOTE | 2024-11-03 13:47 | P.PN ---
Subjective Progress Note Date: 11/03/24 The patient was seen and evaluated this morning. She is in sinus mechanism at this point. She is on oral anticoagulation. The physical examination is remarkable for regular rhythm with a soft systolic murmur and bilateral expiratory wheezing and no edema was noted in the lower extremities 11/01/2024 Patient seen and examined. She has been started on Eliquis. She is currently in sinus rhythm. Blood pressure 135/83, heart rate 74, pulse ox 95% on room air. The physical examination is remarkable for regular rhythm with a soft systolic murmur and bilateral expiratory wheezing and no edema was noted in the lower extremities 11/02/2024 Patient seen and examined. She remains in a sinus rhythm. She states her breathing is better since she came into the hospital. She feels like she is able to talk now. She is followed closely by pulmonary medicine. Blood pressure 153/84, heart rate in the 80s, pulse ox 95% on room air. Chest x-ray from yesterday reveals no acute cardiopulmonary process. Small left pleural effusion. COPD changes. The physical examination is remarkable for regular rhythm with a soft systolic murmur and bilateral expiratory wheezing and no edema was noted in the lower ext remities 11/03 Patient seen and examined. She states she is feeling better but she still has some shortness of breath and wheezing. She feels that she is stable to go home today. She has been in a sinus rhythm. Blood pressure 133/79, heart rate 70s and 80s, pulse ox 93% on room air. The physical examination is remarkable for regular rhythm with a soft systolic murmur and bilateral expiratory wheezing and no edema was noted in the lower extremities Assessment Asthma exacerbation/possible pneumonia/tracheomalacia Paroxysmal atrial fibrillation, currently in sinus rhythm Multiple comorbid conditions Plan Continue the current medical regimen Continue oral anticoagulation Possible atrial fibrillation ablation as an outpatient Cardiology will sign off this case and follow on an as-needed basis. Please reconsult for any new concerns. Patient may follow-up in the office in one to 2 weeks. Nurse practitioner note has been reviewed, I agree with documented findings and plan of care. Patient was seen and examined. Objective - Vital Signs Vital signs: Vital Signs Temp 98.1 F 11/03/24 04:00 Pulse 84 11/03/24 08:08 Resp 16 11/03/24 04:00 BP 133/79 11/03/24 04:00 Pulse Ox 93 L 11/03/24 04:00 FiO2 21 10/30/24 08:11 Intake & Output 11/02/24 11/03/24 11/03/24 18:59 06:59 18:59 Intake Total 868 220 Balance 868 220 Weight 78.2 kg Intake: IV 20 220 Invasive Line 3 20 20 Meropenem 1 gm In Sodium 200 Chloride 0.9% 100 ml @ 33 .3 mls/hr IVPB Q8HR [facility] Rx#:[id number] Intake, IV Titration 250 Amount Lactated Ringers 1,000 ml 250 @ 0 mls/hr IV .STK-MED ONE Rx#:[id number] Oral 598 Other: Voiding Method Toilet Toilet - Labs CBC & Chem 7: 10/31/24 05:17 10/31/24 05:17 Labs: Abnormal Lab Results - Last 24 Hours (Table) 11/02/24 11/02/24 11/02/24 Range/Units 11:27 16:23 20:02 POC Glucose (mg/dL) 171 H 151 H 188 H (70-110) mg/dL 11/03/24 Range/Units 06:19 POC Glucose (mg/dL) 129 H (70-110) mg/dL Microbiology - Last 24 Hours (Table) 10/29/24 07:20 Acid Fast Bacilli Smear - Preliminary Bronchoalviolar Lavage - Right
--- NOTE | 2024-11-03 15:25 | P.PN ---
Subjective Progress Note Date: 11/03/24 Principal diagnosis: Acute exacerbation of severe persistent asthma and chronic bronchiectasis Patient is 69-year-old female with past medical history significant for severe persistent asthma, tracheobronchomalacia, and previous Pseudomonas infections. Also, has history of allergic rhinitis, hypertension, hypothyroidism, and recent diagnosis of atrial fibrillation. She is anticoagulated on Eliquis. Patient presented emergency department yesterday afternoon with complaints of difficulty in breathing, lightheadedness, chest tightness. Reportedly, could not take a deep breath with severe wheezing. Chest x-ray showing hyperinflation. Possible small pleural effusions. NT proBNP only 938. CBC WBC count of 13.4, hemoglobin 14.3, platelets 388. D-dimer not clinically significant at 0.25. CMP unremarkable, electrolytes WDL, creatinine 0.65, glucose 97, lactic 1.2. Troponin less than 0.012. EKG: Normal sinus rhythm, with frequent unifocal PVCs. No acute ST segment elevations or T wave inversions. Patient previously loaded with IV Solu-Medrol and given multiple DuoNeb treatments. She is currently being evaluated in the emergency department. On room air. Wheezing and bronchospastic. Endorses productive cough, with yellow sputum. Denies fevers/chills. Denies nausea, vomiting, diarrhea. No rashes. Recent plane traveling to [place], [place] in September. States she did get sick when she came back. Was treated with a combination of prednisone and doxycycline outpatient. She sees Dr. Knight in the pulmonary office. She also follows with a asthma specialist at the [facility], Dr. Barone. She is on Trezpire injections every 4 weeks. Also, uses a Trelegy inhaler. Was on Airsupra inhaler but stopped this because she felt it caused her atrial fibrillation. Which was reportedly found on event monitor. She is seeing Dr. Crain. Recently, was on metoprolol, however, this was discontinued. Last week was placed on Cardizem. Denies any chest pain. Denies heart palpitations. Denies syncopal events. Denies any lower extremity edema. Reportedly, had esophagogram 3 days ago. Was told she has a hiatal hernia. Currently, rhythm appears normal sinus on bedside monitor. Vitals are stable. The patient is feeling improved compared to yesterday. She feels less bronchospastic and wheezy. She was supposed to have a bronchoscopy today and this was postponed till tomorrow. Meanwhile a CAT scan of the chest was done and the patient will 10/28/2024, the patient is being seen for a follow-up. Continues to have some right lower lobe and lingular tree-in-bud nodular opacities in addition to areas of bronchiectasis involving the lower lobes bilaterally. There is similar scarring opacity within the right midlung that dates back to 2021. No fever. No chills. White cell count of 12.7 with a hematoma 0.1 and a platelet count of 382. Electrolytes are normal. Renal function is normal. LFTs are normal. Remains on Symbicort, albuterol nebulizer treatments 4 times a day, IV Solu-Medrol and Singulair. She is also on oral Levaquin 750 mg p.o. daily. Sputum sample was sent and results are still pending for now. 10/29/2024, the patient is being seen for a follow-up. The patient is currently n.p.o. and getting prepared for a bronchoscopy. Seems to be more stable compared to yesterday. Less mucus spastic and wheezy. Continues to have a congested cough. Unable to produce much of sputum. CAT scan of the chest was noted. Remains on bronchodilators. Remains on steroids. Remains on IV Solu- Medrol 60 mg every 6 hours. No other changes in her medication. The white cell count from yesterday was 4.7 with a hemoglobin 12.1. Electrolytes are all within normal limits. Normal renal function. CAT scan of the chest was noted. The patient remains on oral Levaquin. 10/30/2024, the patient is doing well. She continues to improve. Less bronchospastic and wheezy. Bronchoscopy was done. There is also still pending. Meanwhile, the patient's sputum sample was positive for nocardia and the patient was started on IV meropenem. Ideally, would like to put the patient on Bactrim. However, she thinks that she may have a sulfa allergy. She remains on bronchodilators. She remains on Symbicort. She remains on IV Solu-Medrol. She is also on transplant on outpatient basis. No new labs are available from today. He is doing well. She is currently on room air oxygen with a pulse ox of 95%. 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 Patient is being followed by infectious disease, remains on Merrem for now mostly because of her severe allergy to Bactrim. Patient is also on bronchodilators, she is on Solu-Medrol, improving but still not anywhere ready for discharge. Infectious diseases is recommending immunoglobulin profile, previously the patient had multiple recurrent infections but most of it was Pseudomonas. And this has been treated at 1 point with multiple different antibiotics for pseudomonal infections. WBC count is 10.7 hemoglobin is 13.1 electrolytes are normal renal profile is normal Seen today on 11/01/2024, patient is feeling definitely better compared to how she felt on her initial presentation but not back fully to baseline. The main concern about this patient is the fact that she is allergic to Bactrim and would have liked to treat the patient's nocardia pulmonary infection/bronchiectasis with Bactrim. She is now on meropenem, infectious disease is considering a trial of Bactrim on this patient according to the patient herself. Patient has no symptoms to suggest any nocardia [employer] infection and again remember the drug of choice for nocardiosis is Bactrim apparently the infectious disease specialist discussed with the patient possibly using Bactrim instead of Bactrim but for the time being the patient is on Merrem. WBC count is 10.7 hemoglobin 13.1 electrolytes are normal renal profile is normal Seen today on 11/03/2024, patient is doing well, apparently she has been tolerating the Bactrim quite well, and I have a feeling that the infectious disease will clear the patient for discharge today on Bactrim, asthma serrano she is doing better, breathing easier, she does have occasional cough and wheezing, but significantly better compared to baseline. Hence I will clear the patient for discharge, patient is to go back on her usual medications, she is to go back on her DuoNeb, and her other inhalers, prednisone to be tapered over the next 2 weeks, patient will be discharged most likely on Bactrim and no need for IV antibiotics/Merrem. Objective - Vital Signs Vital signs: Vital Signs Temp 98.1 F 07/03/25 04:00 Pulse 102 H 11/03/24 12:00 Resp 16 11/03/24 12:00 BP 154/78 11/03/24 12:00 Pulse Ox 95 11/03/24 12:00 FiO2 21 10/30/24 08:11 Intake & Output 11/02/24 11/03/24 11/03/24 18:59 06:59 18:59 Intake Total 868 220 250 Balance 868 220 250 Weight 78.2 kg 78.2 kg Intake: IV 20 220 10 Invasive Line 3 20 20 10 Meropenem 1 gm In Sodium 200 Chloride 0.9% 100 ml @ 33 .3 mls/hr IVPB Q8HR [facility] Rx#:[id number] Intake, IV Titration 250 Amount Lactated Ringers 1,000 ml 250 @ 0 mls/hr IV .STK-MED ONE Rx#:[id number] Oral 598 240 Other: Voiding Method Toilet Toilet Toilet - Exam GENERAL EXAM: 69-year-old in no distress HEAD: Normocephalic and atraumatic EYES: Normal reaction of pupils, equal size. NOSE: Clear with pink turbinates. THROAT: No erythema or exudates. NECK: No masses, no JVD. CHEST: No chest wall deformity. LUNGS: Clear bilaterally no crackles rhonchi or wheezes CVS: S1 and S2 normal with no audible murmur, regular rhythm. No extra heart sounds ABDOMEN: No hepatosplenomegaly, active bowel sounds, no guarding or rigidity. SKIN: No rashes CENTRAL NERVOUS SYSTEM: Alert oriented x 3 no focal deficit EXTREMITIES: No clubbing edema or cyanosis - Labs CBC & Chem 7: 10/31/24 05:17 10/31/24 05:17 Labs: Abnormal Lab Results - Last 24 Hours (Table) 11/02/24 11/02/24 11/03/24 Range/Units 16:23 20:02 06:19 POC Glucose (mg/dL) 151 H 188 H 129 H (70-110) mg/dL 11/03/24 Range/Units 11:17 POC Glucose (mg/dL) 128 H (70-110) mg/dL Microbiology - Last 24 Hours (Table) 10/29/24 07:20 Fungal Culture - Preliminary Bronchoalviolar Lavage - Right Ammy albicans 10/29/24 07:20 Acid Fast Bacilli Smear - Preliminary Bronchoalviolar Lavage - Right Assessment and Plan Assessment: Impression: Acute exacerbation of severe persistent asthma Bronchiectasis with recurrent pulmonary infections 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 No previous history of immunodeficiency syndrome History of tracheobronchomalacia Eosinophilic asthma on tezspire injections on outpatient basis Benign essential hypertension Paroxysmal atrial fibrillation Hypothyroidism Generalized anxiety disorder Recommendation: Will clear the patient for discharge on Bactrim, bronchodilators, prednisone bur st and taper, Trelegy, and DuoNeb updrafts 4 times daily and as needed For her insomnia, patient to discuss with the admitting physician or her primary care physician to consider Ambien on an outpatient basis as needed especially when she is on high-dose of steroids Patient was cleared by me for discharge and to see me in the office in 1 to 2 weeks Time with Patient: Less than 30
--- NOTE | 2024-11-06 14:55 | P.PN ---
Subjective Progress Note Date: 11/03/24 Principal diagnosis: Reason for follow-up is Nocardia Patient is a 69-year-old female with a past medical history significant for hypertension pneumonia osteoarthritis asthma SVT history of recurrent pneumonia presented to the hospital with increasing shortness of emery th intermittent chest pain patient did have abnormal CT which shows right lower lobe and lingular tree-in-bud opacities sputum positive for nocardia prompting this consultation. On today's evaluation that is 11/03/2024,the patient remains to be afebrile, patient is on room air not requiring supplemental oxygen and mention breathing slightly comfortably P denies any chest pain cough decreased intensity no abdominal pain no diarrhea. No new lab has been obtained today Objective - Vital Signs Vital signs: Vital Signs Temp 98.1 F 11/03/24 04:00 Pulse 84 11/03/24 08:08 Resp 16 11/03/24 08:00 BP 157/84 11/03/24 08:00 Pulse Ox 96 11/03/24 08:00 FiO2 21 10/30/24 08:11 Intake & Output 11/02/24 11/03/24 11/03/24 18:59 06:59 18:59 Intake Total 868 220 250 Balance 868 220 250 Weight 78.2 kg Intake: IV 20 220 10 Invasive Line 3 20 20 10 Meropenem 1 gm In Sodium 200 Chloride 0.9% 100 ml @ 33 .3 mls/hr IVPB Q8HR [facility] Rx#:[id number] Intake, IV Titration 250 Amount Lactated Ringers 1,000 ml 250 @ 0 mls/hr IV .STK-MED ONE Rx#:[id number] Oral 598 240 Other: Voiding Method Toilet Toilet Toilet - Exam GENERAL DESCRIPTION: An elderly female up in bed in no distress RESPIRATORY SYSTEM: Unlabored breathing , coarse breath sounds at bases HEART: S1 S2 regular rate and rhythm , ABDOMEN: Soft , no tenderness EXTREMITIES: No edema feet - Labs CBC & Chem 7: 10/31/24 05:17 10/31/24 05:17 Labs: Abnormal Lab Results - Last 24 Hours (Table) 11/02/24 11/02/24 11/02/24 Range/Units 11:27 16:23 20:02 POC Glucose (mg/dL) 171 H 151 H 188 H (70-110) mg/dL 11/03/24 11/03/24 Range/Units 06:19 11:17 POC Glucose (mg/dL) 129 H 128 H (70-110) mg/dL Microbiology - Last 24 Hours (Table) 10/29/24 07:20 Acid Fast Bacilli Smear - Preliminary Bronchoalviolar Lavage - Right Assessment and Plan (1) Nocardiosis Status: Acute Code(s): A43.9 - NOCARDIOSIS, UNSPECIFIED SNOMED Code(s): 48001650 (2) Allergy to sulfa drugs Status: Acute Code(s): Z88.2 - ALLERGY STATUS TO SULFONAMIDES SNOMED Code(s): 98890697 (3) Pneumonia Status: Acute Code(s): J18.9 - PNEUMONIA, UNSPECIFIED ORGANISM SNOMED Code(s): 259485070 Plan: 1patient presented to hospital with increased shortness of breath cough sputum production in this patient who did have abnormality seen on the CT of the chest with right lower lobe as well as lingular opacities and sputum is growing nocardia concerning for nocardia pneumonia patient also have some headache but no other feature but will need to make sure no evidence of any CARDIOPULMONARY PHYSICAL THERAPIST infection at this point. 2unfortunately patient allergic to sulfa which is the drug of choice for treatment of nocardiosis, did call the micro lab to obtain sensitivities of this pathogen as the patient need to be on a long-term course of antibiotic for this likely. 3with the patient concern for recurrent pneumonia patient did have a immunoglobin level which has been normal HIV testing has been negative 4patient seem to have tolerated Bactrim DS prescription for Bactrim DS has been sent to the pharmacy also with instruction to have BMP checked once a week and will have her follow-up in the office in 1 to 2 weeks hopefully by then sensitivity will be finalized Dictation was produced using [employer] dictation software. please excuse any grammatical, word or spelling errors. Time with Patient: Less than 30
== END 2024-11-03 13:47 | disposition home health service (06) | DRG 178 ==
LOC: EC 15:30 → 6NMEDSUR 10-27 01:52 → OBSVTOIN 10-27 01:53 → 4SSUR 10-27 04:36 → 1SOBS 10-27 15:52 → 3SCARD 10-28 04:42
PROVIDERS: ADMIT Hospitalist; ATTEND Hospitalist
PROC: 0B9F8ZZ Drainage of Right Lower Lung Lobe, Via Natural or Artificial Opening Endoscopic (ICD-10-PCS; principal; 2024-10-29 07:00)
PROC: 0B9F8ZX Drainage of Right Lower Lung Lobe, Via Natural or Artificial Opening Endoscopic, Diagnostic (ICD-10-PCS; principal; 2024-10-29 07:00)
DX: A43.0 Pulmonary nocardiosis (principal); B37.81 Candidal esophagitis; T17.890A Other foreign object in other parts of respiratory tract causing asphyxiation, initial encounter; J45.51 Severe persistent asthma with (acute) exacerbation; I42.8 Other cardiomyopathies; J39.8 Other specified diseases of upper respiratory tract; E11.9 Type 2 diabetes mellitus without complications; I10 Essential (primary) hypertension; F32.A Depression, unspecified; E03.9 Hypothyroidism, unspecified; I34.0 Nonrheumatic mitral (valve) insufficiency; J82.83 Eosinophilic asthma; J47.9 Bronchiectasis, uncomplicated; I48.0 Paroxysmal atrial fibrillation; I44.7 Left bundle-branch block, unspecified; E78.5 Hyperlipidemia, unspecified; I49.3 Ventricular premature depolarization; F41.1 Generalized anxiety disorder; G47.30 Sleep apnea, unspecified; K44.9 Diaphragmatic hernia without obstruction or gangrene; L98.9 Disorder of the skin and subcutaneous tissue, unspecified; Z77.22 Contact with and (suspected) exposure to environmental tobacco smoke (acute) (chronic); Z79.51 Long term (current) use of inhaled steroids; Z79.01 Long term (current) use of anticoagulants; Z79.84 Long term (current) use of oral hypoglycemic drugs; Z79.890 Hormone replacement therapy; Z79.899 Other long term (current) drug therapy; Z96.653 Presence of artificial knee joint, bilateral; Z87.01 Personal history of pneumonia (recurrent); Z88.2 Allergy status to sulfonamides; Z88.1 Allergy status to other antibiotic agents; Z88.8 Allergy status to other drugs, medicaments and biological substances
CPT/HCPCS: 31624; 36415; 70450; 71045; 71046; 71250; 80053; 82784; 82785; 83605; 83735; 83880; 84100; 84439; 84443; 84481; 84484; 85025; 85379; 85610; 85730; 87070; 87075; 87102; 87116; 87205; 87206; 87390; 87496; 87498; 87502; 87529; 87634; 87635; 87636; 87798; 88108; 88305; 93005; 94640; 94760; 96361; 96374; 96375; 99291

== ENCOUNTER → 2024-11-08 | Outpatient (CLI) | payer MEDICARE ==
[2024-11-08 15:20] LABS: BUN/Creat Ratio 25.00 Ratio (12.00-20.00); Blood Urea Nitrogen 22.5 mg/dL (9.0-27.0); Glucose 95 mg/dL (70-110)
[2024-11-08 15:21] LABS: Anion Gap 12.20 mmol/L (4.00-12.00); Calcium 9.0 mg/dL (8.7-10.3); Carbon Dioxide 23.8 mmol/L (21.6-31.8); Chloride 98 mmol/L (96-109); Potassium 4.9 mmol/L (3.5-5.5); Sodium 134 mmol/L (135-145)
== END | disposition home or self-care (01) ==
LOC: LABWHC1 10:54
PROVIDERS: ATTEND Internal Medicine Critical Care Medicine
DX: I10 Essential (primary) hypertension (principal)
CPT/HCPCS: 36415; 80048